=== PATIENT | female | born 1980 | race Caucasian/White ===

== ENCOUNTER 2017-10-22 15:47 | Emergency (ER) | payer SELFPAY ==
[2017-10-22] MEDS ORDERED: ALPRAZOLAM 0.5 MG TABLET PO ONE (16:35)
--- NOTE | 2017-10-22 16:36 | ER Document Report ---
ED Psych Disorder / Suicide - General Chief Complaint: Anxiety Stated Complaint: POSSIBLE ANXIETY Time Seen by Provider: 10/22/17 16:29 Mode of Arrival: Ambulatory Information source: Patient Notes: Patient is a 37-year-old female with a history of PTSD, anxiety, depression who presents to the ER today for panic attack today after running out of her Xanax and trazodone yesterday. Patient has been on these medications since she was 33 years old, but states that she just moved down here from [place] and has not found a new doctor to follow-up with about her mental health issues. Patient admits that today since she has not had her medication she has chest tightness, shortness of breath, nausea and anxiety in general. Patient denies any cardiac disease, history of asthma etc. Patient takes Xanax 1 mg 4 times a day and trazodone every night religiously and does not miss a dose. TRAVEL OUTSIDE OF THE [place] IN LAST 30 DAYS: No - Related Data Allergies/Adverse Reactions: morphine Allergy (Verified 10/22/17 15:49) Past Medical History - General Information source: Patient - Social History Smoking Status: Never Smoker Family History: Reviewed & Not Pertinent Review of Systems - Review of Systems Constitutional: No symptoms reported EENT: No symptoms reported Cardiovascular: See HPI Respiratory: See HPI Gastrointestinal: No symptoms reported Genitourinary: No symptoms reported Female Genitourinary: No symptoms reported Musculoskeletal: No symptoms reported Skin: No symptoms reported Hematologic/Lymphatic: No symptoms reported Neurological/Psychological: See HPI Physical Exam - Vital signs Vitals: Temp Pulse Resp BP Pulse Ox 98.5 F 61 20 127/66 H 100 10/22/17 17:02 10/22/17 17:02 10/22/17 17:02 10/22/17 17:02 10/22/17 17:02 - Notes Notes: PHYSICAL EXAMINATION: GENERAL: Mildly anxious appearing, but and in no acute distress. HEAD: Atraumatic, normocephalic. EYES: Pupils equal round and reactive to light, extraocular movements intact, sclera anicteric, conjunctiva are normal. ENT: ear canals without erythema or foreign body, TMs pearly garcia with good bony landmarks, nares patent, oropharynx clear without exudates. Moist mucous membranes. NECK: Normal range of motion, supple without lymphadenopathy LUNGS: CTAB and equal. No wheezes rales or rhonchi. HEART: Regular rate and rhythm without murmurs ABDOMEN: Soft, no tenderness. No guarding, no rebound BACK: no vertebral tenderness, normal ROM GI/: no CVA tenderness EXTREMITIES: Normal range of motion, no pitting edema. No cyanosis. NEUROLOGICAL: Cranial nerves grossly intact. Normal sensory/motor exams. PSYCH: Mildly anxious SKIN: Warm, Dry, normal turgor, no rashes or lesions noted Course - Re-evaluation Re-evalutation: 10/22/17 18:10 EKG reveals a normal sinus rhythm without evidence of ischemia or abnormality. Xanax relieved all of patient's symptoms. I will give her 2 weeks of medication and I did give her resources for mental health to follow-up with. - Vital Signs Vital signs: Temp Pulse Resp BP Pulse Ox 98.5 F 61 20 127/66 H 100 10/22/17 17:02 10/22/17 17:02 10/22/17 17:02 10/22/17 17:02 10/22/17 17:02 Discharge - Discharge Clinical Impression: Anxiety Condition: Stable Disposition: HOME, SELF-CARE Instructions: Anxiety ([facility]) Additional Instructions: Return immediately for any new or worsening symptoms. Follow up with primary care provider, call tomorrow to make followup appointment. Prescriptions: Trazodone HCl 50 mg PO QHS #14 tablet Alprazolam [Xanax] 1 mg PO QID PRN #56 tablet PRN Reason:
[2017-10-22 18:42] VITALS: BP 113/62
--- NOTE | 2017-10-22 21:51 | EKG REPORT ---
SEVERITY:- BORDERLINE ECG - SINUS RHYTHM SHORT ND INTERVAL, ACCELERATED AV CONDUCTION : Confirmed by: Katerina Myles 22-Oct-2017 21:50:51
== END 2017-10-22 18:42 | disposition home or self-care (01) ==
LOC: ER 15:47
DX: F41.9 Anxiety disorder, unspecified (principal); T43.216A Underdosing of selective serotonin and norepinephrine reuptake inhibitors, initial encounter; Z91.128 Patient's intentional underdosing of medication regimen for other reason; Z91.14 Patient's other noncompliance with medication regimen; R07.89 Other chest pain; R11.0 Nausea; R06.02 Shortness of breath; Z79.899 Other long term (current) drug therapy; Z88.5 Allergy status to narcotic agent
CPT/HCPCS: 93005; 93010; 99284

== ENCOUNTER 2017-11-20 10:33 | Emergency (ER) | payer MEDICAID ==
[2017-11-20] MEDS ORDERED: DEXAMETHASONE SOD PHOS INJ 10 MG/1 ML VIAL IM ONE (11:51)
[2017-11-20] MEDS ORDERED: KETOROLAC TROMETHAMINE INJ/PF 30 MG/1 ML SDV IV ONE (11:51)
[2017-11-20] MEDS ORDERED: LIDOCAINE 5% (700 MG) TRANSDERMAL ADH..PATCH TP ONE (11:52)
--- NOTE | 2017-11-20 11:59 | ER Document Report ---
ED Neck/Back Problem - General Chief Complaint: Leg Pain Stated Complaint: PAIN IN LEGS Time Seen by Provider: 11/20/17 11:10 Mode of Arrival: Ambulatory Information source: Patient Notes: 37-year-old female presents to ED for complaint of low back pain with bilateral hip pain and bilateral sciatica. She states she does have a history of scoliosis. She states the pain has been for a long time over a month but has gotten worse over the last week. She is on gabapentin from the neurologist but she is only seen him one time. TRAVEL OUTSIDE OF THE [place] IN LAST 30 DAYS: No - HPI Onset: Other - Over a month Onset: Chronic Timing: Worse Quality of pain: Sharp, Throbbing Severity: Moderate Pain Level: 4 Context: Bending Recent injury: No Associated symptoms: Like prior neck/back pain, Radiation to leg, Lower back pain. denies: Constipation, Fever, Incontinence, Motor loss, Numbness/tingling , Radiation to arm, Radiation to chest, Sensory loss, Sweaty, Unable to urinate , Upper back pain Exacerbated by: Movement of trunk Relieved by: Nothing Similar symptoms previously: Yes Recently seen / treated by doctor: Yes - Related Data Allergies/Adverse Reactions: morphine Allergy (Verified 10/22/17 15:49) Past Medical History - General Information source: Patient - Social History Smoking Status: Current Every Day Smoker Cigarette use (# per day): Yes - Half pack per day Chew tobacco use (# tins/day): No Smoking Education Provided: Yes - 4 minutes Frequency of alcohol use: None Drug Abuse: None Occupation: Student Lives with: Family Family History: Reviewed & Not Pertinent Patient has suicidal ideation: No Patient has homicidal ideation: No - Past Medical History Cardiac Medical History: Reports: None Pulmonary Medical History: Reports: None EENT Medical History: Reports: None Neurological Medical History: Reports: None Endocrine Medical History: Reports: None Renal/ Medical History: Reports: Other - Endometriosis Malignancy Medical History: Reports: None GI Medical History: Reports: None Musculoskeltal Medical History: Reports Hx Arthritis Skin Medical History: Reports None, Reports Other - Cat scratch fever with lymph node removal Psychiatric Medical History: Reports: Hx Anxiety, Hx Depression, Hx Post Traumatic Stress Disorder Past Surgical History: Reports: Hx Appendectomy, Hx Gynecologic Surgery - Uterine ablation, Hx Tubal Ligation, Other - Lymph node removed due to CAT scans fever Review of Systems - Review of Systems Constitutional: No symptoms reported EENT: No symptoms reported Cardiovascular: No symptoms reported Respiratory: No symptoms reported Gastrointestinal: No symptoms reported Genitourinary: No symptoms reported Female Genitourinary: No symptoms reported Musculoskeletal: Back pain - With bilateral sciatica Skin: No symptoms reported Hematologic/Lymphatic: No symptoms reported Neurological/Psychological: No symptoms reported -: Yes All other systems reviewed and negative Physical Exam - Vital signs Vitals: Temp Pulse Resp BP Pulse Ox 98.0 F 87 14 113/67 99 11/20/17 10:38 11/20/17 10:38 11/20/17 10:38 11/20/17 10:38 11/20/17 10:38 Interpretation: Normal - General General appearance: Appears well, Alert - HEENT Head: Normocephalic, Atraumatic Eyes: Normal Pupils: PERRL - Respiratory Respiratory status: No respiratory distress Chest status: Nontender Breath sounds: Normal Chest palpation: Normal - Cardiovascular Rhythm: Regular Heart sounds: Normal auscultation Murmur: No - Abdominal Inspection: Normal Distension: No distension Bowel sounds: Normal Tenderness: Nontender Organomegaly: No organomegaly - Back Back: Normal, Tender - Lumbar spine bilateral SI joint, Vertebra tenderness - Lumbar. No: Deformity/step-off, CVA tenderness, Scars, Wounds - Extremities General upper extremity: Normal inspection, Nontender, Normal color, Normal ROM , Normal temperature General lower extremity: Normal inspection, Nontender, Normal color, Normal ROM , Normal temperature, Normal weight bearing. No: Remberto's sign - Neurological Neuro grossly intact: Yes Cognition: Normal Orientation: AAOx4 [place] Coma Scale Eye Opening: Spontaneous [place] Coma Scale Verbal: Oriented [place] Coma Scale Motor: Obeys Commands [place] Coma Scale Total: 15 Speech: Normal Motor strength normal: LUE, RUE, LLE, RLE Sensory: Normal - Psychological Associated symptoms: Normal affect, Normal mood - Skin Skin Temperature: Warm Skin Moisture: Dry Skin Color: Normal Course - Re-evaluation Re-evalutation: 11/20/17 13:22 After performing a Medical Screening Examination, I estimate there is LOW risk for EXPANDING OR RUPTURED ABDOMINAL AORTIC ANEURYSM, CAUDA EQUINA SYNDROME, EPIDURAL MASS LESION, or HERNIATED DISK CAUSING SEVERE SPINAL STENOSIS, thus I consider the discharge disposition reasonable. I have reevaluated this patient multiple times and no significant life threatening changes are noted. The patient and I have discussed the diagnosis and risks, and we agree with discharging home and close follow-up. We also discussed returning to the Emergency Department immediately if new or worsening symptoms occur with the understanding that symptoms and presentations can change. We have discussed the symptoms which are most concerning (e.g., saddle anesthesia, urinary or bowel incontinence or retention, changing or worsening pain) that necessitate immediate return. - Vital Signs Vital signs: Temp Pulse Resp BP Pulse Ox 98.2 F 78 16 111/62 100 11/20/17 13:25 11/20/17 13:25 11/20/17 13:25 11/20/17 13:25 11/20/17 13:25 - Laboratory Result Diagrams: 11/20/17 12:30 Laboratory results interpreted by me: 11/20/17 11/20/17 12:30 12:30 Creatinine 0.50 L Urine Ketones TRACE H - Diagnostic Test Radiology reviewed: Image reviewed, Reports reviewed Discharge - Discharge Clinical Impression: Low back pain with sciatica Qualifiers: Chronicity: acute Back pain laterality: bilateral Sciatica laterality: bilateral sciatica Qualified Code(s): M54.42 - Lumbago with sciatica, left side Headache Qualifiers: Headache type: unspecified Headache chronicity pattern: unspecified pattern Intractability: not intractable Qualified Code(s): R51 - Headache Condition: Stable Disposition: HOME, SELF-CARE Instructions: Family Physicians / Practices Additional Instructions: LOW BACK PAIN: Three out of every four people will have an episode of disabling back pain during their lifetime. Most commonly the pain is due to straining of the muscles and ligaments in the low back. Usual treatment includes: (1) Rest on a firm surface. Avoid lying on your stomach. (2) Ice pack the painful area. After a few days, gentle heat may be used intermittently to relax the area, or ice packs can be continued. (3) Medication may be needed -- muscle relaxers and antiinflammatory medicines are commonly used. (4) As the back improves, exercises are prescribed to strengthen the back and abdominal muscles. Your doctor will advise you on the proper care for your back at each stage in your recovery. You may be better in a few days -- or healing may take several weeks. If new symptoms of a "herniated disc" (radiation of pain, numbness, or tingling down the back of the leg or weakness in the leg) occur, you should be re-examined. Further testing may be necessary. ORAL NARCOTIC MEDICATION: You have been given a norco for pain control. This medication is a narcotic. It's best taken with food, as nausea can result if taken on an empty stomach. Don't operate machinery or drive within six hours of taking this medication. Do not combine this medicine with alcohol, or with any medication which can cause sedation (such as cold tablets or sleeping pills) unless you get permission from the physician. Narcotics tend to cause constipation. If possible, drink plenty of fluids and eat a diet high in fiber and fruits. Please be aware that prescription narcotics also have the potential for abuse. People become addicted to these medications because of the general sense of wellbeing that they induce. This feeling along with a significant reduction in tension, anxiety, and aggression provides a stimulating seductive quality to these drugs. Once your pain is under control, we encourage you to discard your unused narcotics. MUSCLE RELAXERS: Muscle relaxing medications are usually prescribed for acute muscle spasm or injury to the neck and back. They are often combined with antiinflammatory pain medication for increased relief. You may stop the muscle relaxer when the pain and stiffness have improved. Start the medication again if spasms recur. Muscle relaxers may cause drowsiness, especially with the first dose. Do not operate machinery or drive while under the effects of the medication. Most muscle relaxers last up to 24 hours. Do not combine the medication with alcohol. ICE PACKS: Apply ice packs frequently against the painful area. Many different schedules are recommended, such as "20 minutes on, 20 minutes off" or "one hour ice, two hours rest." If you need to work, you may need to go longer between ice treatments. You should plan to have the area ice packed AT LEAST one fourth of the time. The ice should be applied over the wrap, tape, or splint, or over a layer of cloth -- not directly against the skin. Some ice bags have a built-in cloth and can be put directly on the skin. WARM PACKS: After approximately two days, apply gentle heat (such as a heating pad or hot water bottle) for about 20 to 30 minutes about every two hours -- at least four times daily. Warmth and elevation will help you make a more rapid recovery , and will ease the pain considerably. Do not use HOT heat, and never apply heat for longer than 30 minutes. The continuous heat can invisibly damage skin and muscles -- even when no burn is seen on the surface. Damaged muscles can make you MORE sore. Toradol Injection You have been given an injection of ketorolac tromethamine (Toradol). This is an excellent, safe drug for pain control. It also has potent antiinflammatory action. You should have significant pain relief within about one hour. Toradol is not addicting and is non-sedating. It does not interfere with driving or work. Call or return if you develop itching, hives, shortness of breath, or rash. STEROID MEDICATION: You have been given an injection of medicine of the cortisone/steroid class. This medication is used to control inflammation or allergy. It is often continued as a pill for a short period of time, until the acute process subsides. There are usually no side effects from short-term use of cortisone-like medications. Some persons feel an increased sense of well-being and are not sleepy at bedtime. Long-term use of cortisone medications is best avoided, unless required for a severe condition. If your condition does not remit, or relapses after the course of corticosteroid medication, you should consult your physician. Stretching Exercises for the Back The physician has recommended that you begin stretching exercises for your back. These are often used even while the back is painful. However, you should notify the physician if the activities seem to increase your pain. PELVIC TILT: Lie flat on your back with knees bent. Tighten your stomach and buttock muscles so it flattens your lower back against the floor. Hold 10 seconds. Repeat 10 times, twice daily. KNEE RAISE: Lying on the back with knees bent, raise one knee to your chest, then the other. Hold both knees against the chest 10 seconds, then lower one knee at a time. Repeat 10 times, twice daily. PARTIAL TRUNK RAISE: Lie face down, arms at your sides. Keeping your waist on the floor, use your arms raise your chest up. Support yourself on your elbows for 30 seconds. Repeat twice daily, increasing the time to two minutes as you recover. Placed a Lidoderm patch on you at this time. And needs to come off in 12 hours. I can write you a prescription for the lidocaine patches but sometimes insurances do not cover them if they do not cover them they do have him over-the -counter. FOLLOW-UP CARE: If you have been referred to a physician for follow-up care, call the physician s office for an appointment as you were instructed or within the next two days. If you experience worsening or a significant change in your symptoms, notify the physician immediately or return to the Emergency Department at any time for re-evaluation. Prescriptions: Cyclobenzaprine HCl [Flexeril 10 mg Tablet] 10 mg PO TIDP PRN #15 tab PRN Reason: Lidocaine [Lidoderm 5% (700 mg) Transdermal Patch] 1 patch TP DAILY #30 adh..patch Forms: Smoking Cessation Education
--- NOTE | 2017-11-20 12:29 | RADIOLOGY REPORT (SQ) ---
EXAM DESCRIPTION: L SPINE WHOLE COMPLETED DATE/TIME: 11/20/2017 12:13 pm REASON FOR STUDY: low back pain sciatica has had BTL COMPARISON: None. NUMBER OF VIEWS: Five views including obliques. TECHNIQUE: AP, lateral, oblique, and sacral radiographic images acquired of the lumbar spine. LIMITATIONS: None. FINDINGS: MINERALIZATION: Normal. SEGMENTATION: Normal. No transitional anatomy. ALIGNMENT: Normal. VERTEBRAE: Maintained height. No fracture or worrisome bone lesion. DISCS: Preserved height. No significant osteophytes or end plate irregularity. POSTERIOR ELEMENTS: Pedicles and facets are intact. No pars defect or posterior arch defects. HARDWARE: None in the spine. PARASPINAL SOFT TISSUES: Normal. PELVIS: Intact as visualized. No fractures or worrisome bone lesions. SI joints intact. OTHER: No other significant finding. IMPRESSION: NORMAL 5 VIEW LUMBAR SPINE. TECHNICAL DOCUMENTATION: JOB ID: [id number] [employer]- All Rights Reserved Reading location - IP/workstation name: [email or web address]
[2017-11-20 13:01] LABS: APPEARANCE,URINE CLEAR; BILIRUBIN,URINE NEGATIVE (NEGATIVE); COLOR,URINE COLORLESS; GLUCOSE, URINE NEGATIVE (NEGATIVE); KETONES,URINE TRACE mg/dL (NEGATIVE); LEUKOCYTE ESTERASE,URINE NEGATIVE (NEGATIVE); NITRITE,URINE NEGATIVE (NEGATIVE); PROTEIN,URINE NEGATIVE (NEGATIVE); URINE SPECIFIC GRAVITY 1.004; UROBILINOGEN,URINE NEGATIVE mg/dL (<2.0)
[2017-11-20 13:03] LABS: ANION GAP 13 (5-19); BLOOD UREA NITROGEN 11 mg/dL (7-20); CALCIUM 10.2 mg/dL (8.4-10.2); CARBON DIOXIDE 25 mmol/L (22-30); CHLORIDE 106 mmol/L (98-107); GLUCOSE 84 mg/dL (75-110); POTASSIUM 4.5 mmol/L (3.6-5.0)
[2017-11-20] MEDS ORDERED: CYCLOBENZAPRINE HCL 10 MG TABLET PO ONE (13:13)
[2017-11-20] MEDS ORDERED: HYDROCODONE/ACETAMINOPHEN 5-325 MG TABLET PO ONE (13:13)
[2017-11-20 14:07] VITALS: BP 111/62
== END 2017-11-20 13:25 | disposition home or self-care (01) ==
LOC: ER 10:33
DX: M54.42 Lumbago with sciatica, left side (principal); M54.41 Lumbago with sciatica, right side; R51 Headache; F17.210 Nicotine dependence, cigarettes, uncomplicated; Z71.6 Tobacco abuse counseling; Z79.899 Other long term (current) drug therapy; Z88.5 Allergy status to narcotic agent
CPT/HCPCS: 99406; 99284; 96372; 96374; 36415; 80048; 81001; 72110; J1885; J1100

== ENCOUNTER 2018-01-13 21:36 | Emergency (ER) | payer MEDICAID ==
[2018-01-13 23:25] LABS: APPEARANCE,URINE CLEAR; BILIRUBIN,URINE NEGATIVE (NEGATIVE); COLOR,URINE STRAW; GLUCOSE, URINE NEGATIVE (NEGATIVE); KETONES,URINE TRACE mg/dL (NEGATIVE); LEUKOCYTE ESTERASE,URINE NEGATIVE (NEGATIVE); NITRITE,URINE NEGATIVE (NEGATIVE); PROTEIN,URINE NEGATIVE (NEGATIVE); URINE SPECIFIC GRAVITY 1.008; UROBILINOGEN,URINE NEGATIVE mg/dL (<2.0)
[2018-01-13 23:41] LABS: ABSOLUTE EOSINOPHILS # (AUTO) 0.2 10^3/uL (0.0-0.6); ABSOLUTE LYMPHOCYTES (AUTO) 3.2 10^3/uL (0.5-4.7); ABSOLUTE MONOCYTES (AUTO) 0.6 10^3/uL (0.1-1.4); ABSOLUTE NEUT (AUTO) 4.9 10^3/uL (1.7-8.2); BASOPHILS % (AUTO) 0.4 % (0-2); EOSINOPHILS % (AUTO) 1.9 % (0-6); HEMATOCRIT 38.7 % (36.0-47.0); HEMOGLOBIN 13.1 g/dL (12.0-15.5); LYMPHOCYTES % (AUTO) 35.7 % (13-45); MEAN CORPUSCULAR HEMOGLOBIN 31.4 pg (27.0-33.4); MEAN CORPUSCULAR HGB CONC 33.9 g/dL (32.0-36.0); MEAN CORPUSCULAR VOLUME 93 fl (80-97); PLATELET COUNT 288 10^3/uL (150-450); RED BLOOD COUNT 4.19 10^6/uL (3.72-5.28); RED CELL DISTRIBUTION WIDTH 13.2 % (11.5-14.0); TOTAL CELLS COUNTED % (AUTO) 100 %; WHITE BLOOD COUNT 8.9 10^3/uL (4.0-10.5)
[2018-01-13 23:51] LABS: ALANINE AMINOTRANSFERASE 21 U/L (9-52); ALBUMIN 4.2 g/dL (3.5-5.0); ALKALINE PHOSPHATASE 50 U/L (38-126); ANION GAP 11 (5-19); ASPARTATE AMINO TRANSFERASE 16 U/L (14-36); BILIRUBIN,DIRECT 0.2 mg/dL (0.0-0.4); BILIRUBIN,TOTAL 0.4 mg/dL (0.2-1.3); BLOOD UREA NITROGEN 16 mg/dL (7-20); CALCIUM 9.8 mg/dL (8.4-10.2); CARBON DIOXIDE 25 mmol/L (22-30); CHLORIDE 106 mmol/L (98-107); GLUCOSE 87 mg/dL (75-110); POTASSIUM 3.9 mmol/L (3.6-5.0); SODIUM 142.1 mmol/L (137-145); TOTAL PROTEIN 6.6 g/dL (6.3-8.2)
[2018-01-14] MEDS ORDERED: KETOROLAC TROMETHAMINE INJ/PF 30 MG/1 ML SDV IV ONE (00:41)
[2018-01-14] MEDS ORDERED: FENTANYL CITRATE INJ/PF 100 MCG/2 ML AMPUL IV ONE ×2 (00:41→02:18)
--- NOTE | 2018-01-14 00:43 | ER Document Report ---
ED General - General Chief Complaint: Abdominal Pain Stated Complaint: ABDOMINAL PAIN Time Seen by Provider: 01/13/18 23:30 Notes: Patient is a 37-year-old female with a past medical history of depression, anxiety, PTSD, a prior surgical history of a tubal ligation who presents with acute onset of left adnexal discomfort approximately 1 hour prior to arrival. She describes this as a stabbing, constant, severe pain. Nothing improves or worsens this pain. She denies a history of similar pain in the past. She has not seen her general doctor regarding today's concerns. She denies any associated vomiting, diarrhea, vaginal bleeding, vaginal discharge or dysuria. No trauma to the area. The pain has been unchanged since onset. TRAVEL OUTSIDE OF THE [place] IN LAST 30 DAYS: No - Related Data Allergies/Adverse Reactions: morphine Allergy (Verified 10/22/17 15:49) Past Medical History - General Information source: Patient - Social History Smoking Status: Current Every Day Smoker Chew tobacco use (# tins/day): No Frequency of alcohol use: Rare Drug Abuse: None Lives with: Spouse/Significant other Family History: Reviewed & Not Pertinent Patient has suicidal ideation: No Patient has homicidal ideation: No Renal/ Medical History: Denies: Hx Peritoneal Dialysis Musculoskeltal Medical History: Reports Hx Arthritis Psychiatric Medical History: Reports: Hx Anxiety, Hx Depression, Hx Post Traumatic Stress Disorder Past Surgical History: Reports: Hx Appendectomy, Hx Gynecologic Surgery - Uterine ablation, Hx Tubal Ligation, Other - Lymph node removed due to CAT scans fever Review of Systems - Review of Systems Notes: Constitutional: Negative for fever. HENT: Negative for sore throat. Eyes: Negative for visual changes. Cardiovascular: Negative for chest pain. Respiratory: Negative for shortness of breath. Gastrointestinal: Positive for abdominal pain Genitourinary: Negative for dysuria. Musculoskeletal: Negative for back pain. Skin: Negative for rash. Neurological: Negative for headaches, weakness or numbness. 10 point ROS negative except as marked above and in HPI. Physical Exam - Vital signs Vitals: Temp Pulse Resp BP Pulse Ox 97.8 F 58 L 15 99/66 L 99 01/13/18 22:28 01/13/18 22:28 01/13/18 22:28 01/13/18 22:28 01/13/18 22:28 Interpretation: Normal Notes: PHYSICAL EXAMINATION: GENERAL: Well-appearing, well-nourished and in no acute distress. HEAD: Atraumatic, normocephalic. EYES: Pupils equal round and reactive to light, extraocular movements intact, sclera anicteric, conjunctiva are normal. ENT: nares patent, oropharynx clear without exudates. Moist mucous membranes. NECK: Normal range of motion, supple without lymphadenopathy LUNGS: Breath sounds clear to auscultation bilaterally and equal. No wheezes rales or rhonchi. HEART: Regular rate and rhythm without murmurs ABDOMEN: Soft, mild tenderness to the suprapubic and left adnexal regions but no other localized areas of tenderness, normoactive bowel sounds. No guarding, no rebound. No masses appreciated. EXTREMITIES: Normal range of motion, no pitting or edema. No cyanosis. NEUROLOGICAL: No focal neurological deficits. Moves all extremities spontaneously and on command. PSYCH: Moderately anxious SKIN: Warm, Dry, normal turgor, no rashes or lesions noted. Course - Re-evaluation Re-evalutation: 01/14/18 00:41 Patient presents with acute onset of suprapubic abdominal pain that started approximately 3 hours prior to arrival and has been ongoing since that time. Abdominal exam is otherwise benign without any focal areas of tenderness, rebound or guarding. Patient is otherwise nontoxic in appearance, vitals within normal limits with bradycardia at time of arrival as opposed to tachycardia. No hypotension. No fever. She has not had any associated nausea or vomiting. She has a history of an appendectomy as well as a tubal ligation. Clinical suspicion is highest for possible ruptured ovarian cyst versus endometriosis both of which the patient has a history of. Will obtain a transvaginal ultrasound to further assess. The patient has no upper abdominal tenderness to suggest a biliary pathology, acute pancreatitis and the labs are otherwise unremarkable. Urinalysis clear without evidence of cystitis or pyelonephritis. 01/14/18 02:45 Transvaginal ultrasound does show a hemorrhagic left ovarian cyst which would account for the patient's pain. She is overall feeling much improved at this time point has tolerated oral intake without difficulty. At this time will discharge with return precautions and follow-up recommendations. Verbal discharge instructions given a the bedside and opportunity for questions given. Medication warnings reviewed. Patient is in agreement with this plan and has verbalized understanding of return precautions and the need for primary care follow-up in the next 24-72 hours. - Vital Signs Vital signs: Temp Pulse Resp BP Pulse Ox 98.2 F 50 L 15 92/50 L 99 01/14/18 03:07 01/14/18 03:07 01/14/18 03:07 01/14/18 03:07 01/14/18 03:07 - Laboratory Result Diagrams: 01/13/18 23:25 01/13/18 23:25 Laboratory results interpreted by me: 01/13/18 23:00 Urine Ketones TRACE H - Diagnostic Test Radiology reviewed: Reports reviewed Discharge - Discharge Clinical Impression: Hemorrhagic cyst of left ovary, Lower abdominal pain Condition: Good Disposition: HOME, SELF-CARE Additional Instructions: Your seen today for lower abdominal pain and your ultrasound shows that you have a hemorrhagic left ovarian cyst which likely accounts for your pain. For your pain: Take ibuprofen 600 mg and acetaminophen 1000 mg every 6 hours together as needed for pain. If this does not control your pain you may take the tramadol as prescribed. Please follow-up with your primary doctor regarding today's visit. Return if you develop a fever greater than 100.4F, worsening pain, persistent vomiting, or any other symptoms that are worrisome to you. Prescriptions: Tramadol HCl 50 mg PO Q6H PRN #8 tablet PRN Reason: Severe Pain
--- NOTE | 2018-01-14 02:35 | RADIOLOGY REPORT (SQ) ---
EXAM DESCRIPTION: US PELVIS COMPLETED DATE/TME: 01/14/2018 00:40 CLINICAL HISTORY: 37 years, Female, lower abdominal pain, adnexal pain LMP not available. COMPARISON: None. TECHNIQUE: Complete pelvic ultrasound with transvaginal imaging. Limited color spectral Doppler imaging of the ovaries. FINDINGS: Uterus measures 8.3 x 3.8 x 4.7 cm. Endometrial thickness of 0.2 cm. Cervical length of 2.9 cm and closed. Nabothian cysts. No free pelvic fluid. The right ovary measures 3.7 x 1.7 x 2.4 cm. The left ovary measures 4.4 x 2.1 x 3.1 cm. There is a 2.7 x 1.5 x 2.0 cm hemorrhagic left ovarian cyst. No follow-up imaging required. Limited color spectral Doppler imaging of the ovaries demonstrates blood flow bilaterally. IMPRESSION: 1. No sonographic abnormality identified in the pelvis. 2011 [employer]- All Rights Reserved
[2018-01-14 03:11] VITALS: BP 92/50
== END 2018-01-14 03:11 | disposition home or self-care (01) ==
LOC: ER 21:36
DX: N83.202 Unspecified ovarian cyst, left side (principal); R10.30 Lower abdominal pain, unspecified; R00.1 Bradycardia, unspecified; F17.200 Nicotine dependence, unspecified, uncomplicated
CPT/HCPCS: 96376; 99284; 96374; 96375; 36415; 83690; 84703; 85025; 80053; 81001; 76830; 93976; J3010; J1885

== ENCOUNTER → 2018-01-30 | Outpatient (CLI) | payer MEDICAID ==
[2018-01-30 16:19] LABS: FREE T4 (FREE THYROXINE) 1.07 ng/dL (0.78-2.19)
[2018-01-30 16:33] LABS: THYROID STIMULATING HORMONE 1.15 uIU/mL (0.47-4.68)
== END ==
LOC: OD 14:51
PROVIDERS: ATTEND Nurse Practitioner Psychiatric/Mental Health
DX: F40.01 Agoraphobia with panic disorder (principal); Z79.899 Other long term (current) drug therapy
CPT/HCPCS: 36415; 84439; 84443

== ENCOUNTER 2018-02-02 18:15 | Emergency (ER) | payer MEDICAID ==
[2018-02-02] MEDS ORDERED: ONDANSETRON 4 MG TAB.RAPDIS PO ONE (19:13)
[2018-02-02] MEDS ORDERED: OXYCODONE-ACETAMINOPHEN 5-325 MG TABLET PO ONE (19:13)
--- NOTE | 2018-02-02 19:16 | ER Document Report ---
ED Medical Screen (RME) - General Chief Complaint: Abdominal Pain Stated Complaint: ABDOMINAL PAIN Time Seen by Provider: 02/02/18 19:08 Notes: 37-year-old female patient complaining of severe pain in the left lower quadrant abdomen. She was seen here on 01/13/2018 and found to have a small left ovarian hemorrhagic cyst. She states this pain is similar but possibly worse. It had been getting better since her visit about 3 weeks ago. It began getting bad today about 2 PM and has been getting progressively worse all day. I have greeted and performed a rapid initial assessment of this patient. A comprehensive ED assessment and evaluation of the patient, analysis of test results and completion of the medical decision making process will be conducted by additional ED providers. TRAVEL OUTSIDE OF THE [place] IN LAST 30 DAYS: No - Related Data Allergies/Adverse Reactions: morphine Allergy (Verified 02/02/18 18:16) Past Medical History - Social History Chew tobacco use (# tins/day): No Frequency of alcohol use: None Drug Abuse: None Renal/ Medical History: Denies: Hx Peritoneal Dialysis Musculoskeltal Medical History: Reports Hx Arthritis Psychiatric Medical History: Reports: Hx Anxiety, Hx Depression, Hx Post Traumatic Stress Disorder Past Surgical History: Reports: Hx Appendectomy, Hx Gynecologic Surgery - Uterine ablation, Hx Tubal Ligation, Other - Lymph node removed due to CAT scans fever Physical Exam - Vital signs Vitals: Temp Pulse Resp BP Pulse Ox 98.5 F 90 16 110/75 99 02/02/18 18:31 02/02/18 18:31 02/02/18 18:31 02/02/18 18:31 02/02/18 18:31 Course - Vital Signs Vital signs: Temp Pulse Resp BP Pulse Ox 98.5 F 90 16 110/75 99 02/02/18 18:31 02/02/18 18:31 02/02/18 18:31 02/02/18 18:31 02/02/18 18:31 Doctor's Discharge - Discharge Referrals: ADRIANA FENG NP [Primary Care Provider] - Follow up as needed
[2018-02-02 19:37] LABS: APPEARANCE,URINE CLEAR; BILIRUBIN,URINE NEGATIVE (NEGATIVE); COLOR,URINE STRAW; GLUCOSE, URINE NEGATIVE (NEGATIVE); KETONES,URINE NEGATIVE (NEGATIVE); LEUKOCYTE ESTERASE,URINE NEGATIVE (NEGATIVE); NITRITE,URINE NEGATIVE (NEGATIVE); PROTEIN,URINE NEGATIVE (NEGATIVE); URINE SPECIFIC GRAVITY 1.005; UROBILINOGEN,URINE NEGATIVE mg/dL (<2.0)
[2018-02-02 19:38] LABS: ABSOLUTE BASOPHILS # (AUTO) 0.1 10^3/uL (0.0-0.2); ABSOLUTE EOSINOPHILS # (AUTO) 0.2 10^3/uL (0.0-0.6); ABSOLUTE LYMPHOCYTES (AUTO) 2.4 10^3/uL (0.5-4.7); ABSOLUTE MONOCYTES (AUTO) 0.6 10^3/uL (0.1-1.4); ABSOLUTE NEUT (AUTO) 7.7 10^3/uL (1.7-8.2); BASOPHILS % (AUTO) 0.6 % (0-2); EOSINOPHILS % (AUTO) 1.5 % (0-6); HEMATOCRIT 41.2 % (36.0-47.0); HEMOGLOBIN 13.8 g/dL (12.0-15.5); LYMPHOCYTES % (AUTO) 22.1 % (13-45); MEAN CORPUSCULAR HEMOGLOBIN 31.3 pg (27.0-33.4); MEAN CORPUSCULAR HGB CONC 33.6 g/dL (32.0-36.0); MEAN CORPUSCULAR VOLUME 93 fl (80-97); MONOCYTES % (AUTO) 5.8 % (3-13); PLATELET COUNT 338 10^3/uL (150-450); RED BLOOD COUNT 4.42 10^6/uL (3.72-5.28); TOTAL CELLS COUNTED % (AUTO) 100 %; WHITE BLOOD COUNT 11.1 10^3/uL (4.0-10.5)
[2018-02-02] MEDS ORDERED: KETOROLAC TROMETHAMINE INJ/PF 30 MG/1 ML SDV IV ONE (20:23)
[2018-02-02] MEDS ORDERED: NORMAL SALINE 1000 ML 1,000 ML IV ONE (20:23)
[2018-02-02] MEDS ORDERED: METOCLOPRAMIDE HCL INJ/PF 10 MG/2 ML SDV IV ONE (22:02)
[2018-02-02] MEDS ORDERED: FENTANYL CITRATE INJ/PF 100 MCG/2 ML AMPUL IV ONE (22:03)
--- NOTE | 2018-02-02 23:32 | RADIOLOGY REPORT (SQ) ---
EXAM DESCRIPTION: US PELVIS COMPLETED DATE/TME: 02/02/2018 20:07 CLINICAL HISTORY: 37 years Female, hx of left cyst increase pain Comparison: 2.17.18 Technique: Transvaginal. LIMITATIONS: None. FINDINGS: 8-cm uterus, 0.5-cm endometrial stripe thickness, 2.4-cm cervical length, nabothian cysts, 3.2-cm right ovary, and 4.0-cm left ovary appear normal in size, shape, echotexture, and vascularity. Interval absence of a previously described 2.7 cm left ovarian cyst. No free fluid. IMPRESSION: Normal pelvic sonogram..
--- NOTE | 2018-02-02 23:43 | ER Document Report ---
ED General - General Chief Complaint: Abdominal Pain Stated Complaint: ABDOMINAL PAIN Time Seen by Provider: 02/02/18 19:08 TRAVEL OUTSIDE OF THE [place] IN LAST 30 DAYS: No - HPI Patient complains to provider of: Left lower quadrant abdominal pain Notes: Patient coming in for left lower quadrant abdominal pain. Patient states pain similar to when she was seen 3 weeks ago at that time was diagnosed left ovarian cyst. Patient states pain the day achy initially then became acutely worse. Patient denies any flank pain. Denies any dysuria. Denies any fevers chills vomiting or diarrhea. Patient states slight nausea. Patient denies any trauma denies any recent antibiotics. - Related Data Allergies/Adverse Reactions: morphine Allergy (Verified 02/02/18 18:16) Past Medical History - Social History Smoking Status: Current Every Day Smoker Chew tobacco use (# tins/day): No Frequency of alcohol use: None Drug Abuse: None Family History: Reviewed & Not Pertinent Patient has suicidal ideation: No Patient has homicidal ideation: No Renal/ Medical History: Denies: Hx Peritoneal Dialysis Musculoskeltal Medical History: Reports Hx Arthritis Psychiatric Medical History: Reports: Hx Anxiety, Hx Depression, Hx Post Traumatic Stress Disorder Past Surgical History: Reports: Hx Appendectomy, Hx Gynecologic Surgery - Uterine ablation, Hx Tubal Ligation, Other - Lymph node removed due to CAT scans fever Review of Systems - Review of Systems Constitutional: No symptoms reported EENT: No symptoms reported Cardiovascular: No symptoms reported Respiratory: No symptoms reported Gastrointestinal: Abdominal pain - Left lower quadrant Genitourinary: No symptoms reported Female Genitourinary: No symptoms reported Musculoskeletal: No symptoms reported Skin: No symptoms reported Hematologic/Lymphatic: No symptoms reported Neurological/Psychological: No symptoms reported -: Yes All other systems reviewed and negative Physical Exam - Vital signs Vitals: Temp Pulse Resp BP Pulse Ox 98.5 F 90 16 110/75 99 02/02/18 18:31 02/02/18 18:31 02/02/18 18:31 02/02/18 18:31 02/02/18 18:31 Interpretation: Normal - General General appearance: Appears well, Alert - HEENT Head: Normocephalic, Atraumatic Eyes: Normal Pupils: PERRL - Respiratory Respiratory status: No respiratory distress Chest status: Nontender Breath sounds: Normal Chest palpation: Normal - Cardiovascular Rhythm: Regular Heart sounds: Normal auscultation Murmur: No - Abdominal Inspection: Normal Distension: No distension Bowel sounds: Normal Tenderness: Tender - Mild tenderness left lower quadrant Organomegaly: No organomegaly - Back Back: Normal, Nontender - Extremities General upper extremity: Normal inspection, Nontender, Normal color, Normal ROM , Normal temperature General lower extremity: Normal inspection, Nontender, Normal color, Normal ROM , Normal temperature, Normal weight bearing. No: Remberto's sign - Neurological Neuro grossly intact: Yes Cognition: Normal Orientation: AAOx4 [place] Coma Scale Eye Opening: Spontaneous [place] Coma Scale Verbal: Oriented Louis Coma Scale Motor: Obeys Commands [place] Coma Scale Total: 15 Speech: Normal Motor strength normal: LUE, RUE, LLE, RLE Sensory: Normal - Psychological Associated symptoms: Normal affect, Normal mood - Skin Skin Temperature: Warm Skin Moisture: Dry Skin Color: Normal Course - Re-evaluation Re-evalutation: 02/03/18 01:56 Ultrasound was performed showing no left ovarian cyst at this time. Possible etiology of the patient's pain will be rupture of this ovarian cyst. Otherwise patient's laboratory studies reveal no critical pathology. Patient will be given pain medication as medication encouraged follow-up with her CREDIT REPRESENTATIVE patient will be discharged home at this time. - Vital Signs Vital signs: Temp Pulse Resp BP Pulse Ox 98.5 F 50 L 16 95/53 L 100 02/02/18 18:31 02/03/18 00:31 02/03/18 00:31 02/03/18 00:31 02/03/18 00:31 - Laboratory Result Diagrams: 02/02/18 19:17 Laboratory results interpreted by me: 02/02/18 02/02/18 18:35 19:17 WBC 11.1 H Urine Blood SMALL H Discharge - Discharge Clinical Impression: Abdominal pain Qualifiers: Abdominal location: left lower quadrant Qualified Code(s): R10.32 - Left lower quadrant pain Condition: Good Disposition: HOME, SELF-CARE Instructions: Abdominal Pain ([facility]) Additional Instructions: Laboratory studies not did not show any signs of infection. Your ultrasound does not show any signs of ovarian torsion and the recently described cyst is now not seen. More likely had a rupture of this ovarian cyst earlier today. Pain may continue for the next 24-48 hours. I would highly recommend taking Tylenol Motrin for your pain control take prescribed Ultram for severe pain. Return to ER for any other symptoms. Also recommend taking the Zofran for any nausea that she may have to follow-up with your CREDIT REPRESENTATIVE or primary care physician as needed. Prescriptions: Ondansetron [Zofran Odt] 4 mg PO Q6 PRN #20 tab.rapdis PRN Reason: For Nausea/Vomiting Tramadol HCl [Ultram 50 mg Tablet] 50 mg PO ASDIR PRN #10 tablet PRN Reason: Forms: Return to Work Referrals: ADRIANA FENG NP [NO LOCAL MD] - Follow up as needed
[2018-02-03] MEDS ORDERED: TRAMADOL HCL 50 MG TABLET PO ONE (00:14)
[2018-02-03 00:32] VITALS: BP 95/53
== END 2018-02-03 00:34 | disposition home or self-care (01) ==
LOC: ER 18:15
DX: R10.32 Left lower quadrant pain (principal); R11.0 Nausea; F17.200 Nicotine dependence, unspecified, uncomplicated
CPT/HCPCS: 99284; 36415; 84703; 85025; 81001; 76830; 93976; S0119; J3010; J1885; J2765; J7030

== ENCOUNTER 2018-02-08 15:52 | Emergency (ER) | payer MEDICAID ==
[2018-02-08] MEDS ORDERED: DIPHENHYDRAMINE HCL 50 MG/ML VIAL IV ONE (16:28)
[2018-02-08] MEDS ORDERED: NORMAL SALINE 1000 ML 1,000 ML IV ONE (16:28)
[2018-02-08] MEDS ORDERED: METOCLOPRAMIDE HCL INJ/PF 10 MG/2 ML SDV IV ONE (16:28)
[2018-02-08 16:38] LABS: ABSOLUTE EOSINOPHILS # (AUTO) 0.1 10^3/uL (0.0-0.6); ABSOLUTE LYMPHOCYTES (AUTO) 2.4 10^3/uL (0.5-4.7); ABSOLUTE MONOCYTES (AUTO) 0.6 10^3/uL (0.1-1.4); ABSOLUTE NEUT (AUTO) 6.8 10^3/uL (1.7-8.2); BASOPHILS % (AUTO) 0.4 % (0-2); EOSINOPHILS % (AUTO) 1.3 % (0-6); HEMATOCRIT 39.5 % (36.0-47.0); HEMOGLOBIN 13.4 g/dL (12.0-15.5); LYMPHOCYTES % (AUTO) 24.1 % (13-45); MEAN CORPUSCULAR HEMOGLOBIN 31.6 pg (27.0-33.4); MEAN CORPUSCULAR VOLUME 93 fl (80-97); MONOCYTES % (AUTO) 5.9 % (3-13); PLATELET COUNT 307 10^3/uL (150-450); RED BLOOD COUNT 4.25 10^6/uL (3.72-5.28); RED CELL DISTRIBUTION WIDTH 13.3 % (11.5-14.0); SEGMENTED NEUTROPHILS % (AUTO) 68.3 % (42-78); TOTAL CELLS COUNTED % (AUTO) 100 %
--- NOTE | 2018-02-08 16:40 | ER Document Report ---
ED Medical Screen (RME) - General Chief Complaint: Nausea/Vomiting/Diarrhea Stated Complaint: NAUSEA/VOMITING/DIARRHEA Time Seen by Provider: 02/08/18 16:27 Notes: 37-year-old female who presents with several days of nausea, vomiting and lower abdominal pain. She was seen in the ER 6 days ago for similar symptoms and was thought to have a ruptured ovarian cyst. She still having some nausea and vomiting. PE: Mild suprapubic pain. No CVA tenderness. RRR. I have greeted and performed a rapid initial assessment of this patient. A comprehensive ED assessment and evaluation of the patient, analysis of test results and completion of the medical decision making process will be conducted by additional ED providers. TRAVEL OUTSIDE OF THE [place] IN LAST 30 DAYS: No - Related Data Allergies/Adverse Reactions: morphine Allergy (Verified 02/08/18 16:08) Past Medical History - Social History Frequency of alcohol use: None Drug Abuse: None Renal/ Medical History: Denies: Hx Peritoneal Dialysis Musculoskeltal Medical History: Reports Hx Arthritis Psychiatric Medical History: Reports: Hx Anxiety, Hx Depression, Hx Post Traumatic Stress Disorder Past Surgical History: Reports: Hx Appendectomy, Hx Gynecologic Surgery - Uterine ablation, Hx Tubal Ligation, Other - Lymph node removed due to CAT scans fever Physical Exam - Vital signs Vitals: Temp Pulse Resp BP Pulse Ox 98.8 F 86 18 115/56 L 98 02/08/18 15:59 02/08/18 15:59 02/08/18 15:59 02/08/18 15:59 02/08/18 15:59 Course - Vital Signs Vital signs: Temp Pulse Resp BP Pulse Ox 98.8 F 86 18 115/56 L 98 02/08/18 15:59 02/08/18 15:59 02/08/18 15:59 02/08/18 15:59 02/08/18 15:59 - Laboratory Result Diagrams: 02/08/18 16:28 02/08/18 16:28
[2018-02-08 16:57] LABS: ALANINE AMINOTRANSFERASE 38 U/L (9-52); ALBUMIN 4.5 g/dL (3.5-5.0); ALKALINE PHOSPHATASE 64 U/L (38-126); ANION GAP 12 (5-19); ASPARTATE AMINO TRANSFERASE 34 U/L (14-36); BILIRUBIN,DIRECT 0.2 mg/dL (0.0-0.4); BILIRUBIN,TOTAL 0.2 mg/dL (0.2-1.3); BLOOD UREA NITROGEN 9 mg/dL (7-20); CALCIUM 10.2 mg/dL (8.4-10.2); CARBON DIOXIDE 26 mmol/L (22-30); CHLORIDE 106 mmol/L (98-107); GLUCOSE 89 mg/dL (75-110); LIPASE 104.6 U/L (23-300); POTASSIUM 4.7 mmol/L (3.6-5.0); SODIUM 143.5 mmol/L (137-145); TOTAL PROTEIN 7.6 g/dL (6.3-8.2)
[2018-02-08] MEDS ORDERED: KETOROLAC TROMETHAMINE INJ/PF 30 MG/1 ML SDV IV ONE (17:51)
--- NOTE | 2018-02-08 18:12 | ER Document Report ---
ED GI/ - General Chief Complaint: Nausea/Vomiting/Diarrhea Stated Complaint: NAUSEA/VOMITING/DIARRHEA Time Seen by Provider: 02/08/18 16:27 Mode of Arrival: Ambulatory Information source: Patient Notes: A 37-year-old female presented to ED for complaint of several days nausea vomiting lower abdominal pain. She was then ED 6 days ago for similar symptoms and was told she had a ovarian cysts there was no longer present. She states she still having some nausea and vomiting. When I looked at the ultrasound and did not say anything about a ruptured ovarian cyst as she is stating it just said that she had a cyst previously and it was not they are now and that she had a now normal pelvic exam on the ultrasound. TRAVEL OUTSIDE OF THE [place] IN LAST 30 DAYS: No - HPI Patient complains to provider of: Pelvic pain, Vomiting. No: Vaginal bleeding Onset: Last week Timing/Duration: Persistent Quality of pain: Sharp Severity at maximum: Moderate Severity in ED: Moderate Pain Level: 3 Location: Pelvis Vaginal bleeding (Compared to normal period): None Associated symptoms: Diarrhea, Nausea, Vomiting Exacerbated by: Movement Relieved by: Denies Similar symptoms previously: Yes Recently seen / treated by doctor: Yes - Related Data Allergies/Adverse Reactions: morphine Allergy (Verified 02/08/18 16:08) Past Medical History - General Information source: Patient - Social History Smoking Status: Current Every Day Smoker Cigarette use (# per day): Yes - One half pack per day Chew tobacco use (# tins/day): No Smoking Education Provided: Yes - 4 minutes Frequency of alcohol use: None Drug Abuse: None Lives with: Family Family History: Reviewed & Not Pertinent Patient has suicidal ideation: No Patient has homicidal ideation: No - Past Medical History Cardiac Medical History: Reports: None Pulmonary Medical History: Reports: None EENT Medical History: Reports: None Neurological Medical History: Reports: None Endocrine Medical History: Reports: None Renal/ Medical History: Reports: Hx Ovarian Cysts Malignancy Medical History: Reports: None GI Medical History: Reports: None Musculoskeltal Medical History: Reports Hx Arthritis Skin Medical History: Reports None Psychiatric Medical History: Reports: Hx Anxiety, Hx Depression, Hx Post Traumatic Stress Disorder Traumatic Medical History: Reports: None Infectious Medical History: Reports: None Past Surgical History: Reports: Hx Appendectomy, Hx Gynecologic Surgery - Uterine ablation, Hx Tubal Ligation, Other - Lymph node removed due to CAT scans fever - Immunizations Immunizations up to date: Yes Review of Systems - Review of Systems Constitutional: No symptoms reported EENT: No symptoms reported Cardiovascular: No symptoms reported Respiratory: No symptoms reported Gastrointestinal: Abdominal pain, Diarrhea, Nausea, Vomiting Genitourinary: No symptoms reported Female Genitourinary: No symptoms reported Musculoskeletal: No symptoms reported Skin: No symptoms reported Hematologic/Lymphatic: No symptoms reported Neurological/Psychological: Headaches -: Yes All other systems reviewed and negative Physical Exam - Vital signs Vitals: Temp Pulse Resp BP Pulse Ox 98.8 F 86 18 115/56 L 98 02/08/18 15:59 02/08/18 15:59 02/08/18 15:59 02/08/18 15:59 02/08/18 15:59 Interpretation: Normal - General General appearance: Appears well, Alert - HEENT Head: Normocephalic, Atraumatic Eyes: Normal Pupils: PERRL Visual mcmillan normal: Yes Ears: Normal External canal: Normal Tympanic membrane: Normal Sinus: Normal, Swelling Mouth/Lips: Normal Mucous membranes: Normal Pharynx: Normal Neck: Normal - Respiratory Respiratory status: No respiratory distress Chest status: Nontender Breath sounds: Normal Chest palpation: Normal - Cardiovascular Rhythm: Regular Heart sounds: Normal auscultation Murmur: No - Abdominal Inspection: Normal Distension: No distension Bowel sounds: Normal Tenderness: Nontender. No: Tender, McBurney's point, Abreu's sign, Guarding Organomegaly: No organomegaly - Back Back: Normal, Nontender - Extremities General upper extremity: Normal inspection, Nontender, Normal color, Normal ROM , Normal temperature General lower extremity: Normal inspection, Nontender, Normal color, Normal ROM , Normal temperature, Normal weight bearing. No: Remberto's sign - Neurological Neuro grossly intact: Yes Cognition: Normal Orientation: AAOx4 [place] Coma Scale Eye Opening: Spontaneous [place] Coma Scale Verbal: Oriented [place] Coma Scale Motor: Obeys Commands [place] Coma Scale Total: 15 Speech: Normal Motor strength normal: LUE, RUE, LLE, RLE Sensory: Normal - Psychological Associated symptoms: Normal affect, Normal mood - Skin Skin Temperature: Warm Skin Moisture: Dry Skin Color: Normal Course - Re-evaluation Re-evalutation: 02/08/18 19:05 Discussed labs with patient and also ultrasound from previous visit. Patient was given a copy of her labs to follow-up with her HORSE RACING MANAGER and primary doctor. Patient was treated with Toradol nausea medicine and IV fluids for her abdominal pain. Her vital signs are stable her labs are stable she has been instructed to follow-up with her primary doctor. She was also given a prescription for Compazine to take with Benadryl and ibuprofen for her headaches. She states she did did get some relief from her headache with the Toradol. After performing a Medical Screening Examination, I estimate there is LOW risk for ACUTE GLAUCOMA, TEMPORAL ARTERITIS, MENINGITIS, INCRANIAL HEMORRHAGE, or ISCHEMIC STROKE thus I consider the discharge disposition reasonable. I have reevaluated this patient multiple times and no significant life threatening changes are noted. The patient and I have discussed the diagnosis and risks, and we agree with discharging home with close follow-up with the understanding that symptoms and presentations can change. We also discussed returning to the Emergency Department immediately if new or worsening symptoms occur. We have discussed the symptoms which are most concerning (e.g., changing or worsening symptoms, new numbness or weakness, vomiting, fever) that necessitate immediate return. - Vital Signs Vital signs: Temp Pulse Resp BP Pulse Ox 98.8 F 86 18 115/56 L 98 02/08/18 15:59 02/08/18 15:59 02/08/18 15:59 02/08/18 15:59 02/08/18 15:59 - Laboratory Result Diagrams: 02/08/18 16:28 02/08/18 16:28 Discharge - Discharge Clinical Impression: Abdominal pain Qualifiers: Abdominal location: generalized Qualified Code(s): R10.84 - Generalized abdominal pain Migraine Qualifiers: Migraine type: unspecified Status migrainosus presence: without status migrainosus Intractability: not intractable Qualified Code(s): G43.909 - Migraine, unspecified, not intractable, without status migrainosus Condition: Stable Disposition: HOME, SELF-CARE Instructions: Family Physicians / Practices Additional Instructions: ABDOMINAL PAIN: There are many causes of abdominal pain. Pain can mean a serious problem requiring surgery (such as appendicitis). It can also be an innocent problem that goes away on its own (such as a viral infection). Often, time must pass to determine the cause of pain. The physician does not feel that hospitalization is necessary, at present. Things may change within the next 24 hours. Call the doctor or come back for re- examination if any problems occur, such as: (1) Pain that becomes more severe, steady, or becomes concentrated in one specific area. Also, pain that is more severe with movement or coughing. (2) Vomiting that persists or becomes more frequent. (3) Blood in the vomitus, urine, or bowel movements. Blood in the stool may have a tarry or black appearance. (4) Shaking chills or fever greater than 100 degrees F. (5) The abdomen becomes more distended or swollen. (6) Bowel movements cease. (7) Failure to improve as expected. HEADACHE: The physician does not feel that the headache you are experiencing has a serious underlying cause. Most headaches are due to emotional stress, with resultant muscle tension (tension headache). Occasionally, headaches are secondary to changes in the blood vessels of the scalp (vascular headache and migraine headache). Sometimes, a headache is the first symptom of another developing illness, such as a viral infection. You have no evidence of stroke, bleeding, meningitis, or other serious cause of your headache. The treatment of headaches varies with the severity and cause of the pain. Not all headaches need pain shots. In fact, there is evidence that using narcotics for headaches may make them worse in the long run. The physician will determine the therapy that's in your best interest. If you develop a fever, if the headache is different from any you've previously experienced, or if the headache progressively worsens, then call your physician at once or go to the emergency room. USE OF DIPHENHYDRAMINE: Diphenhydramine (Benadryl) is an antihistamine and has been recommended to help treat your headache and to prevent side effects of other medications used to treat headaches. The medication can be repeated four times daily. Age Elixir (12.5 mg/tsp) 25 mg pill adult 1-2 tabs Antihistamines may cause drowsiness, especially with the first dose. Do not operate machinery or drive while under the effects of the medication. Do not combine the medication with alcohol, or with any other medication without talking to your doctor. ANTINAUSEA MEDICATION: You have been given a medication to suppress nausea and vomiting. This type of medication can be given as a shot, pill, or suppository. It will usually last for many hours. Pills and shots usually last six to eight hours, suppositories last about 12 hours. For the typical illness, only one or two doses of the medication may be necessary. Mild lightheadedness may occur. This type of medicine can cause drowsiness. Do not drive or operate dangerous machinery while under its influence. Do not mix with alcohol. See your doctor at once if you have muscle spasms or tightness, or uncontrollable motions (particularly of the neck, mouth, or jaw). Persistent vomiting or severe lightheadedness should also be evaluated by the physician. COMPAZINE FOR HEADACHE: You have received therapy for headaches, using Compazine. This treatment is dramatically successful in relieving the headache in about 50 percent of cases. Most patients still feel fully alert after the Compazine, but others may be slightly drowsy. It's best not to drive or work with machinery for six to eight hours. Do not take alcohol or other medication unless you discuss it with the doctor. If you develop tightness and spasms in your muscles, especially the neck and tongue, you should return. This is a side effect which can be treated. TORADOL INJECTION: You have been given an injection of ketorolac tromethamine (Toradol). This is an excellent, safe drug for pain control. It also has potent antiinflammatory action. You should have significant pain relief within about one hour. Toradol is not addicting and is non-sedating. It does not interfere with driving or work. Call or return if you develop itching, hives, shortness of breath, or rash. FOLLOW-UP CARE: If you have been referred to a physician for follow-up care, call the physician s office for an appointment as you were instructed or within the next two days. If you experience worsening or a significant change in your symptoms, notify the physician immediately or return to the Emergency Department at any time for re-evaluation. Prescriptions: Prochlorperazine Maleate [Compazine 10 mg Tablet] 10 mg PO Q6HP PRN #10 tablet PRN Reason: Forms: Smoking Cessation Education
[2018-02-08 18:32] LABS: APPEARANCE,URINE SLIGHTLY-CLOUDY; BILIRUBIN,URINE NEGATIVE (NEGATIVE); COLOR,URINE STRAW; GLUCOSE, URINE NEGATIVE (NEGATIVE); KETONES,URINE NEGATIVE (NEGATIVE); LEUKOCYTE ESTERASE,URINE NEGATIVE (NEGATIVE); NITRITE,URINE NEGATIVE (NEGATIVE); PROTEIN,URINE NEGATIVE (NEGATIVE); UROBILINOGEN,URINE NEGATIVE mg/dL (<2.0)
[2018-02-08 19:20] VITALS: BP 117/63
== END 2018-02-08 19:18 | disposition home or self-care (01) ==
LOC: ER 15:52
DX: G43.909 Migraine, unspecified, not intractable, without status migrainosus (principal); R10.84 Generalized abdominal pain; R10.30 Lower abdominal pain, unspecified; R11.2 Nausea with vomiting, unspecified; R19.7 Diarrhea, unspecified; F17.210 Nicotine dependence, cigarettes, uncomplicated; Z98.51 Tubal ligation status; Z88.6 Allergy status to analgesic agent
CPT/HCPCS: 99406; 99284; 96361; 96374; 96375; 36415; 83690; 85025; 81025; 80053; 81001; J1200; J1885; J2765; J7030

== ENCOUNTER 2018-03-03 23:01 | Emergency (ER) | payer MEDICAID ==
[2018-03-04] MEDS ORDERED: HYDROMORPHONE HCL INJ/PF 2 MG/ML AMPULE IM ONE (00:17)
[2018-03-04 01:27] LABS: T.VAGINALIS (WET MOUNT) NO TRICHOMONAS SEEN; WBCS (WET MOUNT) RARE WBCS SEEN; YEAST (WET MOUNT) NO YEAST SEEN
[2018-03-04 01:28] LABS: BACTERIA (WET MOUNT) 4+ BACTERIA SEEN; EPITHELIALS (WET MOUNT) 4+ EPITHELIALS SEEN; RBCS (WET MOUNT) 2+ RBCS SEEN
--- NOTE | 2018-03-04 01:50 | RADIOLOGY REPORT (SQ) ---
EXAM DESCRIPTION: US PELVIS COMPLETED DATE/TME: 03/04/2018 00:17 CLINICAL HISTORY: 38 years Female, pelvic pain Comparison: 7.5.18 Technique: Transvaginal. LIMITATIONS: None. FINDINGS: 8.5-cm uterus, 0.2-cm endometrial stripe thickness, likely 0.5 cm submucosal cyst, minimal fluid within the endometrial cavity, 3.5-cm cervical length, nabothian cysts, 3.0-cm right ovary, and 4.1-cm left ovary with 2.6 cm dominant cystic follicle (no follow up imaging recommended) appear otherwise unremarkable in size, shape, echotexture, and vascularity. No free fluid. IMPRESSION: Endometrial hypoplasia/atrophy.
[2018-03-04] MEDS ORDERED: HYDROCODONE/ACETAMINOPHEN 5-325 MG TABLET PO ONE (02:04)
[2018-03-04] MEDS ORDERED: HYDROCODONE/ACETAMINOPHEN 5-325 MG (6 TAB/ER DISP) PO PRN (02:38)
--- NOTE | 2018-03-04 02:38 | ER Document Report ---
ED General - General Chief Complaint: Vaginal Bleeding Stated Complaint: ABDOMINAL PAIN Time Seen by Provider: 03/04/18 00:10 Notes: Patient is a 30-year-old female presents with complaint of pelvic pain and some vaginal bleeding. Patient says the pain is been intermittent worsening for 2 months but just recently started having some vaginal bleeding. She has previous history of endometrial ablation due to history of endometriosis. She moved to the area in August and therefore does not have an [employer] doctor in the area and therefore has not been reevaluated for this by a rivet heater. No abnormal vaginal discharge. No fevers. No vomiting. No diarrhea. No other complaints at this time. No dysuria. TRAVEL OUTSIDE OF THE [place] IN LAST 30 DAYS: No - Related Data Allergies/Adverse Reactions: morphine Allergy (Verified 02/08/18 16:08) Past Medical History - Social History Smoking Status: Current Every Day Smoker Chew tobacco use (# tins/day): No Frequency of alcohol use: None Drug Abuse: None Family History: Reviewed & Not Pertinent Patient has suicidal ideation: No Patient has homicidal ideation: No Renal/ Medical History: Reports: Hx Ovarian Cysts. Denies: Hx Peritoneal Dialysis Musculoskeletal Medical History: Reports Hx Arthritis Psychiatric Medical History: Reports: Hx Anxiety, Hx Depression, Hx Post Traumatic Stress Disorder Past Surgical History: Reports: Hx Appendectomy, Hx Gynecologic Surgery - Uterine ablation, Hx Tubal Ligation, Other - Lymph node removed due to CAT scans fever - Immunizations Immunizations up to date: Yes Review of Systems - Review of Systems Notes: My Normal Review Basic REVIEW OF SYSTEMS: CONSTITUTIONAL : Denies fever, chills, or sweats. Denies recent illness. GASTROINTESTINAL: Lower abdominal pain. Denies nausea, vomiting, or diarrhea. Denies constipation. Last BM: GENITOURINARY: Denies difficulty urinating, painful urination, burning, frequency, or blood in urine. FEMALE GENITOURINARY: Vaginal bleeding MUSCULOSKELETAL: Denies neck or back pain or joint pain or swelling. SKIN: Denies rash or skin lesions. NEUROLOGICAL: Denies altered mental status or loss of consciousness. ALL OTHER SYSTEMS REVIEWED AND NEGATIVE. Physical Exam - Vital signs Vitals: Temp Pulse Resp BP Pulse Ox 98.4 F 63 18 85/53 L 99 03/03/18 23:33 03/03/18 23:33 03/03/18 23:33 03/03/18 23:33 03/03/18 23:33 - Notes Notes: General Appearance: Well nourished, alert, cooperative, no acute distress, mild to moderate obvious discomfort. Well appearing Vitals: reviewed, See vital signs table. Head: no swelling or tenderness to the head Eyes: PERRL, EOMI, Conjuctiva clear Mouth: No decreasd moisture Lungs: No wheezing, No rales, No rhonci, No accessory muscle use, good air exchange bilaterally. Heart: Normal rate, Regular rythm, No murmur, no rub Abdomen: Normal BS, soft, No rigidity, mild to moderate lower abdominal tenderness that is worse over the suprapubic and left lower quadrant region, No guarding, no rebound, no abdominal masses, no organomegaly. Pelvic exam: Normal external genitalia. No blood in vaginal vault. No abnormal discharge. Pelvic exam performed with GERALD Booker as the female processing manager. Extremities: strength 5/5 in all extremities, good pulses in all extremities, no swelling or tenderness in the extremities, no edema. Skin: warm, dry, appropriate color, no rash Neuro: speech clear, oriented x 3, normal affect, responds appropriately to questions. Course - Re-evaluation Re-evalutation: 03/04/18 06:18 Patient does not have any concerning findings on exam. She does have some pain to palpation however she is not having peritoneal signs on exam. She does not have significant pain over right lower quadrant. Her pain associate with some vaginal bleeding. Suspect may be redeveloping some endometriosis based on her past history and her current symptoms over last 2 months. I informed that she is follow-up with her rivet heater. I informed her that this may or may not be endometriosis but she does need gynecological follow-up being that she has been having recurrent pelvic pain and some vaginal bleeding. Patient to return to ER if she has fevers, worsening pain, heavy bleeding, or if she feels unwell. Patient agrees with plan will be discharged home. Dictation of this chart was performed using voice recognition software; therefore, there may be some unintended grammatical errors. - Vital Signs Vital signs: Temp Pulse Resp BP Pulse Ox 98.6 F 72 16 102/70 97 03/04/18 01:25 03/04/18 01:25 03/04/18 01:25 03/04/18 01:25 03/04/18 01:25 Discharge - Discharge Clinical Impression: Vaginal bleeding, Pelvic pain Condition: Good Disposition: HOME, SELF-CARE Instructions: Oral Narcotic Medication ([facility]) Additional Instructions: [facility] for further evaluation and treatment of your pelvic pain and vaginal bleeding. Please return to the ER immediately if you develop worsening pain, worsening bleeding, fevers, vomiting, or if you feel unwell. Prescriptions: Hydrocodone/Acetaminophen [[place] 5-325 mg Tablet] 1 tab PO Q4 PRN #10 tablet PRN Reason: For Breakthrough Pain Referrals: KARON ROE MD [ACTIVE STAFF] - 03/06/18
[2018-03-04 03:03] VITALS: BP 102/70
== END 2018-03-04 02:48 | disposition home or self-care (01) ==
LOC: ER 23:01
DX: N93.8 Other specified abnormal uterine and vaginal bleeding (principal); F17.200 Nicotine dependence, unspecified, uncomplicated; R10.2 Pelvic and perineal pain; Z88.6 Allergy status to analgesic agent; Z98.51 Tubal ligation status
CPT/HCPCS: 99284; 96372; 87210; 76856; 93976; J1170

== ENCOUNTER 2018-04-08 16:21 | Inpatient (IN) | payer MEDICAID ==
[2018-04-08] MEDS ORDERED: ONDANSETRON HCL INJ/PF 4 MG/2 ML SDV IV ONE (16:52)
--- NOTE | 2018-04-08 16:52 | ER Document Report ---
ED Medical Screen (RME) - General Chief Complaint: Abdominal Pain Stated Complaint: ABDOMINAL PAIN Time Seen by Provider: 04/08/18 16:49 Mode of Arrival: Ambulatory Information source: Patient Notes: 38-year-old female presents with complaint of abdominal pain that started 3 days prior to arrival. Pain is located in the right upper quadrant, epigastric and periumbilical area. She describes it as a constant stabbing pain that is worse with food. Patient has had associated nausea without vomiting. Her last bowel movement was today. Surgical history of appendectomy, tubal ligation. I have greeted and performed a rapid initial assessment of this patient. A comprehensive ED assessment and evaluation of the patient, analysis of test results and completion of medical decision making process we will be contacted by additional ED providers. General; appears to be uncomfortable, no acute distress Respiratory; no respiratory distress Neuro; alert and oriented 3 TRAVEL OUTSIDE OF THE [place] IN LAST 30 DAYS: No - HPI Onset: Other Onset/Duration: Gradual, Persistent, Worse Quality of pain: Stabbing Severity: Moderate Associated Symptoms: Abdominal pain, Nausea Exacerbated by: Food Relieved by: Denies Similar symptoms previously: No Recently seen / treated by doctor: No - Related Data Smoking: Cigarettes Frequency of alcohol use: None Drug Abuse: None Allergies/Adverse Reactions: morphine Allergy (Verified 04/08/18 16:27) Past Medical History - Social History Chew tobacco use (# tins/day): No Frequency of alcohol use: None Drug Abuse: None Renal/ Medical History: Reports: Hx Ovarian Cysts. Denies: Hx Peritoneal Dialysis Musculoskeltal Medical History: Reports Hx Arthritis Psychiatric Medical History: Reports: Hx Anxiety, Hx Depression, Hx Post Traumatic Stress Disorder Past Surgical History: Reports: Hx Appendectomy, Hx Gynecologic Surgery - Uterine ablation, Hx Tubal Ligation, Other - Lymph node removed due to CAT scans fever - Immunizations Immunizations up to date: Yes Physical Exam - Vital signs Vitals: Temp Pulse Resp BP Pulse Ox 98.4 F 66 16 114/76 100 04/08/18 16:38 04/08/18 16:38 04/08/18 16:38 04/08/18 16:38 04/08/18 16:38 Course - Vital Signs Vital signs: Temp Pulse Resp BP Pulse Ox 98.4 F 66 16 114/76 100 04/08/18 16:38 04/08/18 16:38 04/08/18 16:38 04/08/18 16:38 04/08/18 16:38
[2018-04-08] MEDS ORDERED: FAMOTIDINE INJ/PF 20 MG/2 ML SDV IV ONE (16:53)
--- NOTE | 2018-04-08 17:13 | ER Document Report ---
ED General - General Chief Complaint: Abdominal Pain Stated Complaint: ABDOMINAL PAIN Time Seen by Provider: 04/08/18 16:49 Mode of Arrival: Ambulatory Notes: Patient is a 38-year-old female that presents to the emergency department for chief complaint of right upper quadrant abdominal pain. Patient reports that the pain started about 3 or 4 days ago, seemingly worse with meals, and she had associated nausea but no vomiting. She currently rates the pain as an 8 out of 10, describes as a sharp and stabbing, but there is a constant background dull ache in her right upper quadrant. Denies prior history of issues with her gallbladder, denies history of kidney stones. She denies noting any fevers, chills, night sweats, chest pain, shortness of breath or difficulty breathing. She does report having some dysuria with initiation of urination, denies hematuria Past Medical History: Anxiety Past Surgical History: Appendectomy Social History: Admits to smoking cigarettes, denies alcohol or illicit drug use. Family History: Reviewed and noncontributory for presenting illness Allergies: Reviewed, see documented allergy list. REVIEW OF SYSTEMS: Unless otherwise stated in this report the patient's positive and negative responses for review of systems for constitutional, eyes, ENT, cardiovascular, respiratory, gastrointestinal, neurological, genitourinary, musculoskeletal, and integumentary systems and related systems to the presenting problem are either as stated in the HPI or were not pertinent or were negative for the symptoms and/or complaints related to the presenting medical problem. PHYSICAL EXAMINATION: Vital signs reviewed, nursing noted reviewed. GENERAL: Well-appearing, well-nourished and in no acute distress. HEAD: Atraumatic, normocephalic. EYES: Eyes appear normal, extraocular movements intact, sclera anicteric, conjunctiva are normal. ENT: nares patent, oropharynx clear without exudates. Moist mucous membranes. NECK: Normal range of motion, supple without lymphadenopathy LUNGS: Breath sounds clear to auscultation bilaterally and equal. No wheezes rales or rhonchi. HEART: Regular rate and rhythm without murmurs ABDOMEN: Right upper quadrant tenderness with deep palpation, equivocal Abreu' s sign, soft, normoactive bowel sounds. No rebound, guarding, or rigidity. No masses appreciated. EXTREMITIES: Nontender, good range of motion, no pitting or edema. NEUROLOGICAL: No focal neurological deficits. Moves all extremities spontaneously Motor and sensory grossly intact on exam. PSYCH: Normal mood, normal affect. SKIN: Warm, Dry, normal turgor, no rashes or lesions noted on exposed skin TRAVEL OUTSIDE OF THE [place] IN LAST 30 DAYS: No - Related Data Allergies/Adverse Reactions: morphine Allergy (Verified 04/08/18 16:27) Past Medical History - General Information source: Patient - Social History Smoking Status: Current Every Day Smoker Chew tobacco use (# tins/day): No Frequency of alcohol use: None Drug Abuse: None Family History: Reviewed & Not Pertinent Patient has suicidal ideation: No Patient has homicidal ideation: No Renal/ Medical History: Reports: Hx Ovarian Cysts. Denies: Hx Peritoneal Dialysis Musculoskeletal Medical History: Reports Hx Arthritis Psychiatric Medical History: Reports: Hx Anxiety, Hx Depression, Hx Post Traumatic Stress Disorder Past Surgical History: Reports: Hx Appendectomy, Hx Gynecologic Surgery - Uterine ablation, Hx Tubal Ligation, Other - Lymph node removed due to CAT scans fever - Immunizations Immunizations up to date: Yes Physical Exam - Vital signs Vitals: Temp Pulse Resp BP Pulse Ox 98.4 F 66 16 114/76 100 04/08/18 16:38 04/08/18 16:38 04/08/18 16:38 04/08/18 16:38 04/08/18 16:38 Course - Re-evaluation Re-evalutation: Patient seen and examined vital signs reviewed. Laboratory data and imaging were ordered as appropriate for the patient's presenting symptoms and complaint, with consideration of any critical or life threatening conditions that may be associated with their obtained history and exam as noted above. Patient was treated with IV fluids, Pepcid, Zofran, and Dilaudid Results were reviewed when available and demonstrated elevated lipase, the rest of the patient's blood work was essentially unremarkable, UA negative, right upper quadrant ultrasound was negative for gallstones, or evidence of acute cholecystitis The patient was re-evaluated and was still having some pain, this is the point where the patient had Dilaudid ordered Evaluation was most consistent with acute pancreatitis Results were discussed with the patient at this point after careful consideration I feel that that patient should be admitted to the hospital. This was discussed with the patient that it is in the best interest for their care to be admitted for further evaluation and management. Patient agreed with this plan of care. A call was placed to the admitted physician, Dr. Almodovar who graciously accepted the patient onto their service. *Note is created using voice recognition software and may contain spelling, syntax or grammatical errors. Laboratory 04/08/18 04/08/18 04/08/18 17:42 17:42 17:42 WBC 10.1 RBC 4.13 Hgb 12.8 Hct 38.1 MCV 92 MCH 31.1 MCHC 33.6 RDW 12.4 Plt Count 290 Seg Neutrophils % 64.5 Lymphocytes % 25.7 Monocytes % 7.6 Eosinophils % 1.8 Basophils % 0.4 Absolute Neutrophils 6.5 Absolute Lymphocytes 2.6 Absolute Monocytes 0.8 Absolute Eosinophils 0.2 Absolute Basophils 0.0 Sodium 139.0 Potassium 4.3 Chloride 107 Carbon Dioxide 25 Anion Gap 7 BUN 14 Creatinine 0.72 Est GFR ( Amer) > 60 Est GFR (Non-Af Amer) > 60 Glucose 82 Calcium 9.5 Total Bilirubin 0.3 Direct Bilirubin 0.2 Neonat Total Bilirubin Not Reportable Neonat Direct Bilirubin Not Reportable Neonat Indirect Bili Not Reportable AST 19 ALT 25 Alkaline Phosphatase 60 Total Protein 6.9 Albumin 4.1 Lipase 764.9 H Urine Color STRAW Urine Appearance SLIGHTLY-CLOUDY Urine pH 7.0 Ur Specific [place] 1.008 Urine Protein NEGATIVE Urine Glucose (UA) NEGATIVE Urine Ketones NEGATIVE Urine Blood NEGATIVE Urine Nitrite NEGATIVE Urine Bilirubin NEGATIVE Urine Urobilinogen NEGATIVE Ur Leukocyte Esterase NEGATIVE Urine WBC (Auto) 2 Urine RBC (Auto) 1 Urine Bacteria (Auto) 2+ Squamous Epi Cells Auto 7 Urine Mucus (Auto) RARE Urine Ascorbic Acid NEGATIVE Abdomen Ultrasound 04/08/18 16:49 IMPRESSION: NORMAL RIGHT UPPER QUADRANT ULTRASOUND. - Vital Signs Vital signs: Temp Pulse Resp BP Pulse Ox 97.9 F 51 L 16 91/49 L 100 04/08/18 21:15 04/08/18 21:15 04/08/18 21:15 04/08/18 21:15 04/08/18 21:15 - Laboratory Result Diagrams: 04/08/18 17:42 04/08/18 17:42 Laboratory results interpreted by me: 04/08/18 17:42 Lipase 764.9 H Discharge - Discharge Clinical Impression: Acute pancreatitis Qualifiers: Pancreatitis type: unspecified pancreatitis type Acute pancreatitis complication: unspecified Qualified Code(s): K85.90 - Acute pancreatitis without necrosis or infection, unspecified Condition: Stable Disposition: ADMITTED INPATIENT Admitting Provider: Hospitalist - Dr. Almodovar Unit Admitted: Medical Floor
[2018-04-08] MEDS ORDERED: RINGERS SOLUTION,LACTATED 1,000 ML IV ONE (17:28)
[2018-04-08 18:11] LABS: ABSOLUTE EOSINOPHILS # (AUTO) 0.2 10^3/uL (0.0-0.6); ABSOLUTE LYMPHOCYTES (AUTO) 2.6 10^3/uL (0.5-4.7); ABSOLUTE MONOCYTES (AUTO) 0.8 10^3/uL (0.1-1.4); ABSOLUTE NEUT (AUTO) 6.5 10^3/uL (1.7-8.2); BASOPHILS % (AUTO) 0.4 % (0-2); EOSINOPHILS % (AUTO) 1.8 % (0-6); HEMATOCRIT 38.1 % (36.0-47.0); HEMOGLOBIN 12.8 g/dL (12.0-15.5); LYMPHOCYTES % (AUTO) 25.7 % (13-45); MEAN CORPUSCULAR HEMOGLOBIN 31.1 pg (27.0-33.4); MEAN CORPUSCULAR HGB CONC 33.6 g/dL (32.0-36.0); MEAN CORPUSCULAR VOLUME 92 fl (80-97); MONOCYTES % (AUTO) 7.6 % (3-13); PLATELET COUNT 290 10^3/uL (150-450); RED BLOOD COUNT 4.13 10^6/uL (3.72-5.28); RED CELL DISTRIBUTION WIDTH 12.4 % (11.5-14.0); SEGMENTED NEUTROPHILS % (AUTO) 64.5 % (42-78); TOTAL CELLS COUNTED % (AUTO) 100 %; WHITE BLOOD COUNT 10.1 10^3/uL (4.0-10.5)
[2018-04-08 18:17] LABS: APPEARANCE,URINE SLIGHTLY-CLOUDY; BILIRUBIN,URINE NEGATIVE (NEGATIVE); COLOR,URINE STRAW; GLUCOSE, URINE NEGATIVE (NEGATIVE); KETONES,URINE NEGATIVE (NEGATIVE); LEUKOCYTE ESTERASE,URINE NEGATIVE (NEGATIVE); NITRITE,URINE NEGATIVE (NEGATIVE); PROTEIN,URINE NEGATIVE (NEGATIVE); URINE SPECIFIC GRAVITY 1.008; UROBILINOGEN,URINE NEGATIVE mg/dL (<2.0)
--- NOTE | 2018-04-08 18:28 | RADIOLOGY REPORT (SQ) ---
EXAM DESCRIPTION: U/S ABDOMEN LIMITED W/O DOP COMPLETED DATE/TIME: 04/08/2018 6:09 pm REASON FOR STUDY: pain COMPARISON: None. TECHNIQUE: Dynamic and static grayscale images acquired of the abdomen and recorded on PACS. Additio nal selected color Doppler and spectral images recorded. LIMITATIONS: None. FINDINGS: PANCREAS: No masses. Visualized pancreatic duct normal caliber. LIVER: No masses. Echotexture normal. LIVER VASCULATURE: Normal directional flow of the main portal vein and hepatic veins. GALLBLADDER: No stones. Normal wall thickness. No pericholecystic fluid. ULTRASOUND-DETECTED SHIELDS'S SIGN: Negative. INTRAHEPATIC DUCTS AND COMMON DUCT: CBD and intrahepatic ducts normal caliber. No filling defects. INFERIOR VENA CAVA: Normal flow. AORTA: No aneurysm. RIGHT KIDNEY: Normal size. Normal echogenicity. No solid or suspicious masses. No hydronephrosis. No calcifications. PERITONEAL AND RIGHT PLEURAL SPACE: No ascites or effusions. OTHER: No other significant findings. IMPRESSION: NORMAL RIGHT UPPER QUADRANT ULTRASOUND. TECHNICAL DOCUMENTATION: JOB ID: [id number] [employer]- All Rights Reserved Reading location - IP/workstation name: [email or web address]
[2018-04-08 18:31] LABS: ALANINE AMINOTRANSFERASE 25 U/L (9-52); ALBUMIN 4.1 g/dL (3.5-5.0); ALKALINE PHOSPHATASE 60 U/L (38-126); ANION GAP 7 (5-19); ASPARTATE AMINO TRANSFERASE 19 U/L (14-36); BILIRUBIN,DIRECT 0.2 mg/dL (0.0-0.4); BILIRUBIN,TOTAL 0.3 mg/dL (0.2-1.3); BLOOD UREA NITROGEN 14 mg/dL (7-20); CALCIUM 9.5 mg/dL (8.4-10.2); CARBON DIOXIDE 25 mmol/L (22-30); CHLORIDE 107 mmol/L (98-107); GLUCOSE 82 mg/dL (75-110); LIPASE 764.9 U/L (23-300); POTASSIUM 4.3 mmol/L (3.6-5.0); TOTAL PROTEIN 6.9 g/dL (6.3-8.2)
[2018-04-08] MEDS ORDERED: HYDROMORPHONE HCL INJ/PF 2 MG/ML AMPULE IV ONE (18:58)
[2018-04-08] MEDS ORDERED: NORMAL SALINE 1000 ML 1,000 ML IV ONE (18:58)
[2018-04-08] MEDS ORDERED: PROMETHAZINE HCL INJ 25 MG/1 ML VIAL IV ONE (19:04)
[2018-04-08] MEDS ORDERED: ACETAMINOPHEN 325 MG TABLET PO PRN (21:33)
[2018-04-08] MEDS ORDERED: MAG HYDROX/AL HYDROX/SIMETH SUSP 30 ML UDCUP PO PRN (21:33)
[2018-04-08] MEDS ORDERED: DEXTROSE 40% GEL 15 GM TUBE PO PRN ×2 (21:33)
[2018-04-08] MEDS ORDERED: DEXTROSE 50%-WATER 25 GM/50 ML DISP.SYRIN IV PRN ×2 (21:33)
[2018-04-08] MEDS ORDERED: TEMAZEPAM 7.5 MG CAPSULE PO PRN (21:33)
[2018-04-08] MEDS ORDERED: GLUCAGON,HUMAN RECOMB 1 MG INJ SUBCUT PRN (21:33)
--- NOTE | 2018-04-08 22:39 | PDOC H&P ---
History of Present Illness Admission Date/PCP: 04/08/18 19:54 Patient complains of: Abdominal pain History of Present Illness: VALDEMAR MIJARES is a 38 year old femalePatient comes to the emergency department complaining of right upper quadrant abdominal pain that has been worsening with p.o. intake, sharp in nature, radiated, with nausea but no vomiting, she has been gagging, chills but no fever, lightheadedness on and off. Denies shortness of breath, chest pain, diarrhea, urinary symptoms. Never had similar symptoms in the past. Denies taking oqmo-not-phgjred medications other than ibuprofen. Patient started prazosin 2 months ago. Lipase 764. Right upper quadrant ultrasound negative. Past Medical History Neurological Medical History: Reports: Other - Sciatica Musculoskeltal Medical History: Reports: Arthritis Psychiatric Medical History: Reports: Depression, General Anxiety Disorder, Post Traumatic Stress Disorder Past Surgical History Past Surgical History: Reports: Appendectomy, Tubal Ligation, Other - Lymph node removed due to CAT scans fever Social History Smoking Status: Current Every Day Smoker Cigarettes Packs Per Day: 0.5 Frequency of Alcohol Use: None Hx Recreational Drug Use: No Hx Prescription Drug Abuse: No Past Social History Note: Lives with her who is at the bedside Family History Family History: Reviewed & Not Pertinent Parental Family History Reviewed: Yes Children Family History Reviewed: NA Sibling(s) Family History Reviewed.: NA Medication/Allergy Home Medications: Alprazolam [Xanax Xr 1 mg Tablet Extended Release] 1 mg PO TID 11/20/17 Gabapentin 300 mg PO Q6H 11/20/17 Trazodone HCl 50 mg PO QPM 11/20/17 Buspirone HCl [Buspar 10 mg Tablet] 10 mg PO TID 02/08/18 Allergies/Adverse Reactions: morphine Allergy (Verified 04/08/18 16:27) Review of Systems Review of Systems: As outlined in the HPI, others negative Physical Exam Vital Signs: Temp Pulse Resp BP Pulse Ox 97.9 F 51 L 16 91/49 L 100 04/08/18 21:15 04/08/18 21:15 04/08/18 21:15 04/08/18 21:15 04/08/18 21:15 Intake & Output 04/07/18 04/08/18 04/09/18 06:59 06:59 06:59 Intake Total 1999 Balance 1999 Additional comments: General appearance: Well-developed, well-nourished, alert and cooperative, and appears to be in no acute distress Head: Normocephalic Eyes: PEERL, EOMI, vision is grossly intact. Ears: External auditory canal and tympanic membranes clear, hearing grossly intact. Nose: No nasal discharge. Throat: Oral cavity and pharynx normal. No inflammation, swelling, exudate or lesions. Neck: Neck supple, nontender without lymphadenopathy, masses or thyromegaly. Cardiac: Normal S1 and S2. No S3, S4 or murmurs. Rhythm is regular. There is no peripheral edema, cyanosis or pallor. Extremities are warm and well perfused. Capillary refill is less than 2 seconds. No carotid bruits. Lungs: Clear to auscultation and percussion without rales, rhonchi, wheezing or diminished breath sounds. Not using accessory muscles. Abdomen: Positive bowel sounds. Soft. Mild distention, tenderness in the epigastric and right upper quadrant area. No guarding or rebound. No masses. No hepatosplenomegaly Extremities: No significant deformity or joint abnormality. No edema. Peripheral pulses intact. No varicosities. Neurological: Cranial nerves II through XII grossly intact. Strength and sensation symmetric and intact throughout. Reflexes 2+ throughout. Skin: Skin normal color, texture and turgor with no lesions or eruptions, warm and dry. Psychiatric: The mental examination revealed the patient was oriented to person , place, and time. The patient was able to demonstrate good judgment on recent , without hallucinations, abnormal affect or abnormal behaviors. Results Laboratory Results: 04/08/18 04/08/18 04/08/18 17:42 17:42 17:42 WBC 10.1 RBC 4.13 Hgb 12.8 Hct 38.1 MCV 92 MCH 31.1 MCHC 33.6 RDW 12.4 Plt Count 290 Seg Neutrophils % 64.5 Lymphocytes % 25.7 Monocytes % 7.6 Eosinophils % 1.8 Basophils % 0.4 Absolute Neutrophils 6.5 Absolute Lymphocytes 2.6 Absolute Monocytes 0.8 Absolute Eosinophils 0.2 Absolute Basophils 0.0 Sodium 139.0 Potassium 4.3 Chloride 107 Carbon Dioxide 25 Anion Gap 7 BUN 14 Creatinine 0.72 Est GFR ( Amer) > 60 Est GFR (Non-Af Amer) > 60 Glucose 82 Calcium 9.5 Total Bilirubin 0.3 Direct Bilirubin 0.2 AST 19 ALT 25 Alkaline Phosphatase 60 Total Protein 6.9 Albumin 4.1 Lipase 764.9 H Urine Color STRAW Urine Appearance SLIGHTLY-CLOUDY Ur Specific [place] 1.008 Urine Glucose (UA) NEGATIVE Urine Ketones NEGATIVE Urine Blood NEGATIVE Urine Nitrite NEGATIVE Urine Bilirubin NEGATIVE Urine Urobilinogen NEGATIVE Urine WBC (Auto) 2 Urine RBC (Auto) 1 Urine Bacteria (Auto) 2+ Squamous Epi Cells Auto 7 Urine Mucus (Auto) RARE Urine Ascorbic Acid NEGATIVE Impressions: Abdomen Ultrasound 04/08/18 16:49 IMPRESSION: NORMAL RIGHT UPPER QUADRANT ULTRASOUND. Assessment & Plan - Diagnosis (1) Acute pancreatitis Qualifiers: Pancreatitis type: unspecified pancreatitis type Acute pancreatitis complication: unspecified Qualified Code(s): K85.90 - Acute pancreatitis without necrosis or infection, unspecified Is this a current diagnosis for this admission?: Yes Plan: Chin comes with abdominal pain, lipase 764 with negative right upper quadrant ultrasound, everything is consistent with acute pancreatitis, first episode. Will keep the patient for aggressive IV fluids hydration. IV antiemetics and pain medication. We will keep the patient n.p.o. for now. Repeat lipase in the morning. I am adding serum alcohol levels to prior labs. Tuesday said he denies. IV Protonix. Will repeat lipase in the morning. A1c in the morning. Denies history of cholelithiasis. (2) Anxiety Is this a current diagnosis for this admission?: Yes Plan: Multiple medications at home. - Time Time Spent: 30 to 50 Minutes - Inpatient Certification Based on my medical assessment, after consideration of the patient's comorbidities, presenting symptoms, or acuity I expect that the services needed warrant INPATIENT care.: Yes I certify that my determination is in accordance with my understanding of Medicare's requirements for reasonable and necessary INPATIENT services [42 CFR 412.3e].: Yes Medical Necessity: Risk of Complication if Not Cared For in Hospital
[2018-04-08] MEDS: PROMETHAZINE HCL INJ 25 MG/1 ML VIAL IV PRN (22:40)
[2018-04-08] MEDS: HYDROMORPHONE HCL INJ/PF 2 MG/ML AMPULE IV PRN (22:40)
[2018-04-08] MEDS: NORMAL SALINE 1000 ML 1,000 ML IV PRN (22:40)
[2018-04-08] MEDS ORDERED: TRAZODONE HCL 50 MG TABLET PO ONE (23:00)
[2018-04-08] MEDS ORDERED: NICOTINE 14 MG/24 HR PATCH.TD24 TD ONE (23:30)
[2018-04-08] MEDS ORDERED: BUSPIRONE HCL 10 MG TABLET PO ONE (23:45)
[2018-04-08] MEDS: GABAPENTIN 300 MG CAPSULE PO SCH (23:51)
[2018-04-09] MEDS ORDERED: TRAZODONE HCL 50 MG TABLET PO ONE
[2018-04-09] MEDS ORDERED: DOXAZOSIN MESYLATE 4 MG TABLET PO ONE (00:30)
[2018-04-09] MEDS: ALPRAZOLAM 0.5 MG TABLET PO PRN ×2 (00:47→06:22)
[2018-04-09] MEDS: HYDROMORPHONE HCL INJ/PF 2 MG/ML AMPULE IV PRN ×3 (01:31→07:49)
[2018-04-09 05:35] LABS: ABSOLUTE EOSINOPHILS # (AUTO) 0.2 10^3/uL (0.0-0.6); ABSOLUTE LYMPHOCYTES (AUTO) 3.5 10^3/uL (0.5-4.7); ABSOLUTE MONOCYTES (AUTO) 0.6 10^3/uL (0.1-1.4); ABSOLUTE NEUT (AUTO) 4.3 10^3/uL (1.7-8.2); BASOPHILS % (AUTO) 0.6 % (0-2); EOSINOPHILS % (AUTO) 2.2 % (0-6); HEMATOCRIT 38.9 % (36.0-47.0); LYMPHOCYTES % (AUTO) 40.4 % (13-45); MEAN CORPUSCULAR HEMOGLOBIN 31.1 pg (27.0-33.4); MEAN CORPUSCULAR HGB CONC 33.3 g/dL (32.0-36.0); MEAN CORPUSCULAR VOLUME 93 fl (80-97); MONOCYTES % (AUTO) 6.9 % (3-13); PLATELET COUNT 195 10^3/uL (150-450); RED BLOOD COUNT 4.17 10^6/uL (3.72-5.28); RED CELL DISTRIBUTION WIDTH 12.6 % (11.5-14.0); SEGMENTED NEUTROPHILS % (AUTO) 49.9 % (42-78); TOTAL CELLS COUNTED % (AUTO) 100 %; WHITE BLOOD COUNT 8.7 10^3/uL (4.0-10.5)
[2018-04-09 05:38] LABS: INTERNATIONAL RATION (INR) 0.85; PROTHROMBIN TIME 12.1 SEC (11.4-15.4)
[2018-04-09 05:39] LABS: PARTIAL THROMBOPLASTIN TIME 28.5 SEC (23.5-35.8)
[2018-04-09 06:11] LABS: ALANINE AMINOTRANSFERASE 19 U/L (9-52); ALBUMIN 3.8 g/dL (3.5-5.0); ALKALINE PHOSPHATASE 51 U/L (38-126); ASPARTATE AMINO TRANSFERASE 91 U/L (14-36); BILIRUBIN,DIRECT 0.3 mg/dL (0.0-0.4); BILIRUBIN,TOTAL 0.6 mg/dL (0.2-1.3); BLOOD UREA NITROGEN 11 mg/dL (7-20); CALCIUM 8.9 mg/dL (8.4-10.2); CHLORIDE 113 mmol/L (98-107); GLUCOSE 90 mg/dL (75-110); LIPASE 126.9 U/L (23-300); POTASSIUM 4.1 mmol/L (3.6-5.0); TOTAL PROTEIN 6.7 g/dL (6.3-8.2)
[2018-04-09 06:17] LABS: ANION GAP 6 (5-19); CARBON DIOXIDE 24 mmol/L (22-30); SODIUM 142.8 mmol/L (137-145)
[2018-04-09] MEDS: GABAPENTIN 300 MG CAPSULE PO SCH ×2 (06:22→11:24)
[2018-04-09] MEDS: NORMAL SALINE 1000 ML 1,000 ML IV PRN (06:23)
[2018-04-09] MEDS: PROMETHAZINE HCL INJ 25 MG/1 ML VIAL IV PRN ×3 (06:31→18:13)
[2018-04-09] MEDS ORDERED: PANTOPRAZOLE SODIUM 40 MG VIAL IV SCH (10:00)
[2018-04-09] MEDS: ENOXAPARIN SODIUM INJ 40 MG/0.4 ML DISP.SYRIN SUBCUT SCH (10:22)
[2018-04-09] MEDS: BUSPIRONE HCL 10 MG TABLET PO SCH ×3 (10:22→18:14)
[2018-04-09] MEDS: FAMOTIDINE 20 MG TABLET PO SCH ×2 (10:22→21:21)
[2018-04-09] MEDS: POTASSI CL 20 MEQ/D5-1/2NS 1L 1,000 ML IV PRN ×2 (10:23→19:03)
[2018-04-09] MEDS ORDERED: NALBUPHINE HCL INJ 10 MG/1 ML AMPULE IV PRN ×2 (11:29→12:30)
[2018-04-09] MEDS ORDERED: METOCLOPRAMIDE HCL INJ/PF 10 MG/2 ML SDV IV ONE (11:30)
[2018-04-09] MEDS ORDERED: NALBUPHINE HCL INJ 20 MG/1 ML AMPULE IV PRN (11:32)
[2018-04-09] MEDS ORDERED: HYDROMORPHONE HCL INJ/PF 2 MG/ML AMPULE IV PRN (11:39)
[2018-04-09] MEDS: NALBUPHINE HCL INJ 20 MG/1 ML AMPULE IV PRN ×4 (12:23→21:44)
[2018-04-09] MEDS ORDERED: CLONAZEPAM 1 MG TABLET PO SCH (14:00)
[2018-04-09] MEDS: LIPASE/PROTEASE/AMYLASE 1 CAP CAPSULE.DR PO SCH ×2 (14:12→18:14)
[2018-04-09] MEDS ORDERED: CLONAZEPAM 1 MG TABLET PO ONE (15:30)
[2018-04-09] MEDS: METOCLOPRAMIDE HCL 10 MG TABLET PO SCH ×2 (15:47→21:21)
[2018-04-09] MEDS: SUCRALFATE SUSP 1 GM/10 ML UDCUP PO SCH ×2 (15:47→21:21)
--- NOTE | 2018-04-09 16:56 | RADIOLOGY REPORT (SQ) ---
EXAM DESCRIPTION: CT ABD/PELVIS WITH IV ORAL COMPLETED DATE/TIME: 04/09/2018 4:29 pm REASON FOR STUDY: Abdominal pain COMPARISON: None. TECHNIQUE: CT scan of the abdomen and pelvis performed using helical scanning technique with dynamic intravenous contrast injection. No oral contrast. Images reviewed with lung, soft tissue, and bone windows. Reconstructed coronal and sagittal MPR images reviewed. Delayed images for evaluation of the urinary system also acquired. All images stored on PACS. All CT scanners at this facility use dose modulation, iterative reconstruction, and/or weight based d osing when appropriate to reduce radiation dose to as low as reasonably achievable (ALARA). [facility]: Dose Right [facility]: CareDose [facility]: Dose Right [facility]: Teradose 4D [facility]: [employer] CONTRAST TYPE AND DOSE: contrast/concentration: Isovue 350.00 mg/ml; Total Contrast Delivered: 72.0 ml; Total Saline Delivered: 66.0 ml RENAL FUNCTION: None required. The patient is less than 50 years old. RADIATION DOSE: CT Rad equipment meets quality standard of care and radiation dose reduction techniq ues were employed. CTDIvol: 5.2 - 6.6 mGy. DLP: 631 mGy-cm.. LIMITATIONS: None. FINDINGS: LOWER CHEST: No significant findings. No nodules or infiltrates. LIVER: Normal size. No masses. No dilated ducts. SPLEEN: Normal size. No focal lesions. PANCREAS: No masses. No significant calcifications. No adjacent inflammation or peripancreatic fluid collections. Pancreatic duct not dilated. GALLBLADDER: No identified stones by CT criteria. No inflammatory changes to suggest cholecystitis. ADRENAL GLANDS: No significant masses or asymmetry. RIGHT KIDNEY AND URETER: No solid masses. No significant calcifications. No hydronephrosis or hyd roureter. LEFT KIDNEY AND URETER: No solid masses. No significant calcifications. No hydronephrosis or hydr oureter. AORTA AND VESSELS: No aneurysm. No dissection. Renal arteries, SMA, celiac without stenosis. RETROPERITONEUM: No retroperitoneal adenopathy, hemorrhage or masses. BOWEL AND PERITONEAL CAVITY: No masses or inflammatory changes. No free fluid or peritoneal masses. APPENDIX: Surgically absent. PELVIS: No mass. No free fluid. Normal bladder. ABDOMINAL WALL: No masses. No hernias. BONES: No significant or acute findings. OTHER: No other significant finding. IMPRESSION: NO SIGNIFICANT OR ACUTE FINDING IN THE ABDOMEN OR PELVIS ON CT SCAN WITH IV CONTRAST. TECHNICAL DOCUMENTATION: JOB ID: [id number] Quality ID # [id number]: Final reports with documentation of one or more dose reduction techniques (e.g., Au tomated exposure control, adjustment of the mA and/or kV according to patient size, use of iterative reconstruction technique) 2010 [email or web address]- All Rights Reserved Reading location - IP/workstation name: [email or web address]
[2018-04-09] MEDS ORDERED: TRAZODONE HCL 50 MG TABLET PO SCH (18:00)
--- NOTE | 2018-04-09 21:01 | PDOC H&P ---
History of Present Illness Admission Date/PCP: 04/08/18 19:54 Patient complains of: Upper abdominal pain right upper quadrant and epigastrium History of Present Illness: VERONA MIJARES is a 38 year old female patient who comes to the emergency department complaining of right upper quadrant abdominal pain that has been worsening with p.o. intake. She describes the pain as being sharp in nature right around her umbilicus, and then radiating superiorly and laterally up to the right lower ribs at the mid axillary line and then turning along the right anterior costal margin towards the xiphoid process then down into the epigastrium and back to her umbilical area. She admits nausea, but denies vomiting, though she has been gagging. She admits chills but no fever. She admits lightheadedness on and off. Verona denies shortness of breath, chest pain, diarrhea and urinary symptoms. She denies prior similar episodes. She has not identified any aggravating or ameliorating factors for her abdominal discomfort. She denies taking [id number]-umpaudw medications other than occasional ibuprofen. She admits that she was started on prazosin 2 mg at bedtime 2 months ago. In the emergency room her lipase was 764, and her right upper quadrant ultrasound was negative. Past Medical History Cardiac Medical History: Denies: Hyperlipidema, Hypertension, Pulmonary Embolism, Heart Murmur Pulmonary Medical History: Denies: Asthma, Chronic Obstructive Pulmonary Disease (COPD) EENT Medical History: Denies: Cataracts Neurological Medical History: Reports: Other - Sciatica Denies: Migraine, Multiple Sclerosis, Seizures Endocrine Medical History: Denies: Diabetes Mellitus Type 1, Diabetes Mellitus Type 2, Hyperthyroidism, Hypothyroidism Renal/ Medical History: Denies: Chronic Kidney Disease, Nephrolithiasis Malignancy Medical History: Denies: Breast Cancer, Cervical Cancer GI Medical History: Denies: Gastroesophageal Reflux Disease, Hiatal Hernia, Peptic Ulcer Disease Musculoskeltal Medical History: Reports: Arthritis Denies: Fibromyalgia Skin Medical History: Denies: Eczema, Psoriasis Psychiatric Medical History: Reports: Depression, General Anxiety Disorder, Post Traumatic Stress Disorder Traumatic Medical History: Reports: None Hematology: Denies: Anemia, Bleeding Tendencies Infectious Medical History: Reports: None Past Surgical History Past Surgical History: Reports: Appendectomy, Tubal Ligation, Other - Lymph node removed due to CAT scans fever Social History Smoking Status: Current Every Day Smoker Cigarettes Packs Per Day: 0.5 Frequency of Alcohol Use: None Hx Recreational Drug Use: No Drugs: None Hx Prescription Drug Abuse: No Family History Family History: Reviewed & Not Pertinent Parental Family History Reviewed: Yes Children Family History Reviewed: No Sibling(s) Family History Reviewed.: Yes Medication/Allergy Home Medications: Gabapentin 300 mg PO Q6H 11/20/17 Trazodone HCl 50 mg PO QPM 11/20/17 Buspirone HCl [Buspar 10 mg Tablet] 10 mg PO TID 02/08/18 Alprazolam [Alprazolam] 1 mg PO TID PRN 04/08/18 Prazosin HCl 2 mg PO QHS 04/08/18 Allergies/Adverse Reactions: morphine Allergy (Verified 04/08/18 16:27) Review of Systems Constitutional: PRESENT: chills. ABSENT: fever(s) Eyes: ABSENT: visual disturbances, other - IP Ears: ABSENT: hearing changes, other - Ear pain Nose, Mouth, and Throat: ABSENT: mouth pain, sore throat, vertigo Cardiovascular: ABSENT: chest pain, dyspnea on exertion, edema, palpitations Respiratory: ABSENT: cough, hemoptysis, sputum Gastrointestinal: PRESENT: abdominal pain, nausea, other - Gagging. ABSENT: bloating, constipation, diarrhea, dysphagia, heartburn, hematochezia, melena, vomiting Genitourinary: ABSENT: dysuria, hematuria Musculoskeletal: ABSENT: deformity, joint swelling Integumentary: ABSENT: pruritus, rash Neurological: ABSENT: abnormal speech, confusion, focal weakness, memory loss, numbness, tingling Psychiatric: PRESENT: anxiety. ABSENT: depression, hallucinations Endocrine: ABSENT: cold intolerance, heat intolerance, polyphagia, polyuria Hematologic/Lymphatic: ABSENT: easy bleeding, easy bruising Allergic/Immunologic: PRESENT: seasonal rhinorrhea. ABSENT: other - Insect sting allergies Physical Exam Vital Signs: Temp Pulse Resp BP Pulse Ox 98.6 F 65 18 101/43 L 100 04/09/18 16:00 04/09/18 16:00 04/09/18 16:00 04/09/18 16:00 04/09/18 16:00 Intake & Output 04/08/18 04/09/18 04/10/18 06:59 06:59 06:59 Intake Total 3360 2589 Output Total 0 Balance 3360 2589 Weight 63 kg General appearance: PRESENT: no acute distress, cooperative Head exam: PRESENT: atraumatic, normocephalic Eye exam: PRESENT: conjunctiva pink. ABSENT: conjunctival injection Ear exam: PRESENT: normal external ear exam. ABSENT: drainage Mouth exam: PRESENT: moist, neck supple Neck exam: ABSENT: thyromegaly, tracheal deviation Respiratory exam: PRESENT: clear to auscultation maria del carmen, symmetrical, unlabored Cardiovascular exam: PRESENT: RRR. ABSENT: clicks, gallop, rubs Pulses: PRESENT: normal radial pulses, normal dorsalis pedis pul Vascular exam: PRESENT: normal capillary refill. ABSENT: pallor GI/Abdominal exam: PRESENT: normal bowel sounds, soft, tenderness - Right upper quadrant and epigastrium, most specifically under the costal margin and deep along the right midline area. ABSENT: distended Rectal exam: PRESENT: deferred Extremities exam: PRESENT: full ROM. ABSENT: clubbing, joint swelling, pedal edema, tenderness Musculoskeletal exam: ABSENT: deformity, dislocation, full ROM, normal inspection, tenderness Neurological exam: PRESENT: alert, awake, oriented to person, oriented to place , oriented to time, oriented to situation, CN II-XII grossly intact. ABSENT: motor sensory deficit Psychiatric exam: PRESENT: anxious, other - Passive-aggressive in her overt behavior and having an angry mood. She is unhappy about the fact that she is not getting enough Dilaudid often enough to control her pain. Skin exam: ABSENT: jaundice, rash, urticaria Results Laboratory Results: 04/09/18 04:48 04/09/18 04:48 04/09/18 04/09/18 04:48 04:48 WBC 8.7 RBC 4.17 Hgb 13.0 Hct 38.9 MCV 93 MCH 31.1 MCHC 33.3 RDW 12.6 Plt Count 195 Seg Neutrophils % 49.9 Lymphocytes % 40.4 Monocytes % 6.9 Eosinophils % 2.2 Basophils % 0.6 Absolute Neutrophils 4.3 Absolute Lymphocytes 3.5 Absolute Monocytes 0.6 Absolute Eosinophils 0.2 Absolute Basophils 0.0 Sodium 142.8 Potassium 4.1 Chloride 113 H Carbon Dioxide 24 Anion Gap 6 BUN 11 Creatinine 0.59 Est GFR ( Amer) > 60 Est GFR (Non-Af Amer) > 60 Glucose 90 Calcium 8.9 Magnesium 2.2 Total Bilirubin 0.6 AST 91 H ALT 19 Alkaline Phosphatase 51 Total Protein 6.7 Albumin 3.8 Lipase 126.9 Impressions: Abdomen Ultrasound 04/08/18 16:49 IMPRESSION: NORMAL RIGHT UPPER QUADRANT ULTRASOUND. Abdomen/Pelvis CT 04/09/18 00:00 IMPRESSION: NO SIGNIFICANT OR ACUTE FINDING IN THE ABDOMEN OR PELVIS ON CT SCAN WITH IV CONTRAST. Assessment & Plan - Diagnosis (1) Abdominal pain Qualifiers: Abdominal location: upper abdomen, unspecified Qualified Code(s): R10.10 - Upper abdominal pain, unspecified Is this a current diagnosis for this admission?: Yes Plan: Patient's pain does not appear to be very significant and she is asking for larger doses of Dilaudid administered more frequently. I will stop the patient' s Dilaudid at this point and treat her with Nubain. Additionally the patient has Xanax scheduled and this is also a drug of significant abuse or convert this to clonazepam 1 mg p.o. 3 times daily. When these changes were made known to the patient she immediately asked that I be fired as her physician and should be supplied with a new physician who would give her the Dilaudid that she wants. Dr. Pruitt has been enough to stand and as the patient's hospitalist for today though I have managed her problems and submitted all of her orders, since I am familiar with her. (2) Serum lipase elevation Is this a current diagnosis for this admission?: Yes Plan: Serum lipase has returned to normal, will recheck lipase and amylase in the morning. Patient has been receiving some supplemental pancreatic enzymes along with her diet Reglan and Carafate to manage her abdominal pain and discomfort while allowing her to eat. The pancreatic enzymes will be withdrawn tomorrow if amylase and lipase are again negative. (3) Anxiety Is this a current diagnosis for this admission?: Yes Plan: Patient has significant anxiety and posttraumatic stress disorder with a extremely passive-aggressive attitude in dealing with her physicians. Patient is being treated with clonazepam 1 mg p.o. 3 times daily and further medication will be considered by her new hospitalists. - Time Time Spent: 30 to 50 Minutes Smoking Cessation Education: 3 to 10 minutes Medications reviewed and adjusted accordingly: Yes Anticipated discharge: Home Within: within 72 hours Disposition: This note is actually a hospitalist observation day note and not truly a hospitalist H&P. The note was completed under the wrong format heading but this note will be sent it as being reflective of the services of a routine daily progress visit of greater than 35 minutes duration.
[2018-04-09] MEDS: CLONAZEPAM 1 MG TABLET PO SCH (21:21)
[2018-04-09] MEDS ORDERED: NICOTINE 14 MG/24 HR PATCH.TD24 TD SCH (22:00)
[2018-04-09] MEDS ORDERED: DOXAZOSIN MESYLATE 2 MG TABLET PO SCH (22:00)
[2018-04-09] MEDS ORDERED: (PENDING PHARMACY ID) (Prazosin Hcl [Prazosin Hcl] 2 MG) PO SCH ×2 (22:00)
[2018-04-09] MEDS ORDERED: DOXAZOSIN MESYLATE 4 MG TABLET PO SCH (22:00)
[2018-04-10] MEDS: NALBUPHINE HCL INJ 20 MG/1 ML AMPULE IV PRN ×5 (01:24→16:37)
[2018-04-10] MEDS: POTASSI CL 20 MEQ/D5-1/2NS 1L 1,000 ML IV PRN ×2 (01:24→09:01)
[2018-04-10] MEDS: CLONAZEPAM 1 MG TABLET PO SCH ×2 (06:00→13:04)
--- NOTE | 2018-04-10 08:20 | Physician Advisory Note ---
Physician Advisor ProgressNote .: Pursuant to the plan for [facility], I have reviewed the medical record for this patient. Physician Advisor Statement: Please consider documenting, if you agree: 1. "Benzodiazepine dependence" 2. Reason(s) pt given regular diet starting 04/09 bkft (payer may question it in reference to severity of illness/intensity of service/level of attending concern ) Status: appears approp for Inpt status. - GAVINO pt w/acute pancreatitis, put on IVF w/K @150+ml/hr since adm, using IV Dilaudid 4x by 8AM on 04/09, with hypotension down to 81/51 at 8AM on 04/09, then using IV Nubain 4x on 04/09, & 2x more already on 04/10, & IV Phenergan 3x on 04/09 despite ongoing REglan qac/hs. In hospital care w/high risk meds x 2 nights already. CK
[2018-04-10] MEDS: FAMOTIDINE 20 MG TABLET PO SCH (09:05)
[2018-04-10] MEDS: METOCLOPRAMIDE HCL 10 MG TABLET PO SCH ×3 (09:05→16:48)
[2018-04-10] MEDS: BUSPIRONE HCL 10 MG TABLET PO SCH ×3 (09:05→17:44)
[2018-04-10] MEDS: PROMETHAZINE HCL INJ 25 MG/1 ML VIAL IV PRN ×2 (09:05→13:07)
[2018-04-10] MEDS: SUCRALFATE SUSP 1 GM/10 ML UDCUP PO SCH ×3 (09:05→16:40)
[2018-04-10] MEDS: LIPASE/PROTEASE/AMYLASE 1 CAP CAPSULE.DR PO SCH ×3 (09:06→16:40)
[2018-04-10] MEDS: ENOXAPARIN SODIUM INJ 40 MG/0.4 ML DISP.SYRIN SUBCUT SCH (09:08)
[2018-04-10] MEDS ORDERED: PROMETHAZINE HCL INJ 25 MG/1 ML VIAL IV PRN (13:30)
[2018-04-10 15:23] LABS: APPEARANCE,URINE CLEAR; BILIRUBIN,URINE NEGATIVE (NEGATIVE); COLOR,URINE STRAW; GLUCOSE, URINE NEGATIVE (NEGATIVE); KETONES,URINE NEGATIVE (NEGATIVE); LEUKOCYTE ESTERASE,URINE NEGATIVE (NEGATIVE); NITRITE,URINE NEGATIVE (NEGATIVE); PROTEIN,URINE NEGATIVE (NEGATIVE); URINE SPECIFIC GRAVITY 1.004; UROBILINOGEN,URINE NEGATIVE mg/dL (<2.0)
[2018-04-10 17:47] VITALS: BP 102/44
--- NOTE | 2018-05-10 13:25 | PDOC DISCHARGE SUMMARY ---
General - Admit/Disc Date/PCP Admission Date/Primary Care Provider: 04/10/18 07:30 Discharge Date: 04/10/18 - Discharge Diagnosis (1) Abdominal pain Is this a current diagnosis for this admission?: Yes (2) Acute pancreatitis Is this a current diagnosis for this admission?: Yes (3) Anxiety Is this a current diagnosis for this admission?: Yes (4) Serum lipase elevation Is this a current diagnosis for this admission?: Yes - Additional Information Discharge Diet: As Tolerated Discharge Activity: Activity As Tolerated, Balance Activity w/Rest Prescriptions: Ondansetron [Ondansetron Odt] 4 mg PO Q6HP PRN #10 tab.rapdis PRN Reason: Tramadol HCl [Ultram] 50 mg PO Q6HP PRN #10 tablet PRN Reason: Home Medications: Gabapentin 300 mg PO Q6H 11/20/17 Trazodone HCl 50 mg PO QPM 11/20/17 Buspirone HCl [Buspar 10 mg Tablet] 10 mg PO TID 02/08/18 Alprazolam 1 mg PO TID PRN 04/08/18 Prazosin HCl 2 mg PO QHS 04/08/18 Ondansetron [Ondansetron Odt] 4 mg PO Q6HP PRN #10 tab.rapdis 04/10/18 Tramadol HCl [Ultram] 50 mg PO Q6HP PRN #10 tablet 04/10/18 Hydrocodone/Acetaminophen [Marion 5-325 Tablet] 1 each PO Q6 PRN #12 tablet 04/22 Ondansetron [Zofran Odt 4 mg Tablet] 1 tab PO Q6H #15 tab.rapdis 04/22/18 History of Present Illness History of Present Illness: VALDEMAR MIJARES is a 38 year old femalePatient comes to the emergency department complaining of right upper quadrant abdominal pain that has been worsening with p.o. intake, sharp in nature, radiated, with nausea but no vomiting, she has been gagging, chills but no fever, lightheadedness on and off. Denies shortness of breath, chest pain, diarrhea, urinary symptoms. Never had similar symptoms in the past. Denies taking [id number] medications other than ibuprofen. Patient started prazosin 2 months ago. Lipase 764. Right upper quadrant ultrasound negative. Hospital Course Hospital Course: 38 Y.O. F admitted for suspected pancreatitis. Her Lipase upon admission was 764. All radiological studies were negative. The patient was able to tolerate a PO diet and received supplemental pancreatic enzymes along with Reglan and Carafate to manage her abdominal pain and discomfort while allowing her to eat. Her lipase decreased to 126 the following day. The patient was specifically requesting IV dilaudid for pain mangement - a very strong narcotic pain medication that seems inappropriate when the patient is only describing mild pain and able to tolerate her diet. After 2 days in the hospital, the patient was discharged home. Her vital signs were normal, she was tolerating a PO diet and her pain was relatively well controlled. The patient is currently insured by [place] Medicaid, and encouraged to follow up with a health director. She was sent home with prescriptions for Zofran and Tramadol to help with her nausea and pain. The patient was counseled on the importance of avoiding ETOH and eating a balanced diet. She stated full understanding of her discharge instructions. For further information regarding the patient's hospitalization, please refer to the EMR. Physical Exam Vital Signs: Temp Pulse Resp BP Pulse Ox 97.9 F 74 16 96/64 L 99 04/10/18 16:59 04/10/18 16:59 04/10/18 16:59 04/10/18 16:59 04/10/18 16:59 Results Impressions: Abdomen Ultrasound 04/08/18 16:49 IMPRESSION: NORMAL RIGHT UPPER QUADRANT ULTRASOUND. Abdomen/Pelvis CT 04/09/18 00:00 IMPRESSION: NO SIGNIFICANT OR ACUTE FINDING IN THE ABDOMEN OR PELVIS ON CT SCAN WITH IV CONTRAST. Status: Imported from PACS Qualifiers - * PATIENT BEING DISCHARGED WITH ANY OF THE FOLLOWING DIAGNOSIS: No Plan Discharge Plan: DISCHARGE HOME WITH ANTIEMETICS AND PAIN MEDICATION. FOLLOW UP WITH IC ENGINEER. Time Spent: Less than 30 Minutes
== END 2018-04-10 17:58 | disposition home or self-care (01) | DRG 440 ==
LOC: ER 16:21 → EH 19:54 → INTOOBSV 19:54 → 5 23:46 → OBSVTOIN 04-10 07:30
PROVIDERS: ADMIT Internal Medicine; ATTEND Internal Medicine
DX: K85.90 Acute pancreatitis without necrosis or infection, unspecified (principal); M19.90 Unspecified osteoarthritis, unspecified site; F32.9 Major depressive disorder, single episode, unspecified; F41.1 Generalized anxiety disorder; F43.10 Post-traumatic stress disorder, unspecified; F17.210 Nicotine dependence, cigarettes, uncomplicated; Z79.899 Other long term (current) drug therapy; Z88.6 Allergy status to analgesic agent
CPT/HCPCS: 36415; 74177; 76705; 80053; 80307; 81001; 83036; 83690; 83735; 84478; 85025; 85610; 85730; 96374; 96375; 99285; J1170; J1650; J2300; J2405; J2550; J2765; J3480; J3490; J7030; J7120; S0028

== ENCOUNTER 2018-04-22 11:22 | Emergency (ER) | payer MEDICAID ==
[2018-04-22] MEDS ORDERED: RINGERS SOLUTION,LACTATED 1,000 ML IV ONE (11:43)
[2018-04-22] MEDS ORDERED: KETOROLAC TROMETHAMINE INJ/PF 30 MG/1 ML SDV IV ONE (11:43)
[2018-04-22] MEDS ORDERED: FAMOTIDINE INJ/PF 20 MG/2 ML SDV IV ONE (11:43)
--- NOTE | 2018-04-22 11:44 | ER Document Report ---
ED Medical Screen (RME) - General Chief Complaint: Abdominal Pain Stated Complaint: ABDOMINAL PAIN Time Seen by Provider: 04/22/18 11:37 Notes: 38-year-old female who returns to the emergency with persistent right upper quadrant abdominal pain. Some nausea. Has a history of pancreatitis. No fever , chills, sweats. Pain began at 2 AM. States that she felt fine yesterday. Had steak and mashed potatoes last night for dinner. Pain began in the epigastric and right upper quadrant pain radiates to the right flank. I have greeted and performed a rapid initial assessment of this patient. A comprehensive ED assessment and evaluation of the patient, analysis of test results and completion of the medical decision making process will be conducted by additional ED providers. TRAVEL OUTSIDE OF THE [place] IN LAST 30 DAYS: No - Related Data Allergies/Adverse Reactions: morphine Allergy (Verified 04/22/18 11:24) Past Medical History - Social History Chew tobacco use (# tins/day): No Frequency of alcohol use: None Drug Abuse: None - Past Medical History Cardiac Medical History: Denies: Hx Hypercholesterolemia, Hx Hypertension, Hx Pulmonary Embolism, Hx Heart Murmur Pulmonary Medical History: Denies: Hx Asthma, Hx COPD Neurological Medical History: Denies: Hx Migraine, Hx Seizures Endocrine Medical History: Denies: Hx Diabetes Mellitus Type 1, Hx Diabetes Mellitus Type 2, Hx Hyperthyroidism, Hx Hypothyroidism Renal/ Medical History: Reports: Hx Ovarian Cysts. Denies: Hx Peritoneal Dialysis Malignancy Medical History: Denies: Hx Breast Cancer, Hx Cervical Cancer GI Medical History: Denies: Hx Gastroesophageal Reflux Disease, Hx Hiatal Hernia Musculoskeltal Medical History: Reports Hx Arthritis, Denies Hx Fibromyalgia Skin Medical History: Denies Hx Eczema, Denies Hx Psoriasis Psychiatric Medical History: Reports: Hx Anxiety, Hx Depression, Hx Post Traumatic Stress Disorder Past Surgical History: Reports: Hx Appendectomy, Hx Gynecologic Surgery - Uterine ablation, Hx Tubal Ligation, Other - Lymph node removed due to CAT scans fever - Immunizations Immunizations up to date: Yes Physical Exam - Vital signs Vitals: Temp Pulse Resp BP Pulse Ox 98.1 F 71 16 100/54 L 100 04/22/18 11:31 04/22/18 11:31 04/22/18 11:31 04/22/18 11:31 04/22/18 11:31 Course - Vital Signs Vital signs: Temp Pulse Resp BP Pulse Ox 98.1 F 71 16 100/54 L 100 04/22/18 11:31 04/22/18 11:31 04/22/18 11:31 04/22/18 11:31 04/22/18 11:31
[2018-04-22 12:16] LABS: ABSOLUTE BASOPHILS # (AUTO) 0.1 10^3/uL (0.0-0.2); ABSOLUTE EOSINOPHILS # (AUTO) 0.1 10^3/uL (0.0-0.6); ABSOLUTE LYMPHOCYTES (AUTO) 2.3 10^3/uL (0.5-4.7); ABSOLUTE MONOCYTES (AUTO) 0.5 10^3/uL (0.1-1.4); ABSOLUTE NEUT (AUTO) 6.7 10^3/uL (1.7-8.2); APPEARANCE,URINE CLEAR; BASOPHILS % (AUTO) 1.2 % (0-2); BILIRUBIN,URINE NEGATIVE (NEGATIVE); COLOR,URINE STRAW; EOSINOPHILS % (AUTO) 1.2 % (0-6); GLUCOSE, URINE NEGATIVE (NEGATIVE); HEMATOCRIT 41.7 % (36.0-47.0); HEMOGLOBIN 14.1 g/dL (12.0-15.5); KETONES,URINE NEGATIVE (NEGATIVE); LEUKOCYTE ESTERASE,URINE NEGATIVE (NEGATIVE); LYMPHOCYTES % (AUTO) 23.3 % (13-45); MEAN CORPUSCULAR HEMOGLOBIN 31.1 pg (27.0-33.4); MEAN CORPUSCULAR HGB CONC 33.7 g/dL (32.0-36.0); MEAN CORPUSCULAR VOLUME 92 fl (80-97); MONOCYTES % (AUTO) 5.3 % (3-13); NITRITE,URINE NEGATIVE (NEGATIVE); PLATELET COUNT 372 10^3/uL (150-450); PROTEIN,URINE NEGATIVE (NEGATIVE); RED BLOOD COUNT 4.52 10^6/uL (3.72-5.28); RED CELL DISTRIBUTION WIDTH 12.6 % (11.5-14.0); TOTAL CELLS COUNTED % (AUTO) 100 %; URINE SPECIFIC GRAVITY 1.004; UROBILINOGEN,URINE NEGATIVE mg/dL (<2.0); WHITE BLOOD COUNT 9.7 10^3/uL (4.0-10.5)
[2018-04-22 12:36] LABS: ALANINE AMINOTRANSFERASE 29 U/L (9-52); ALBUMIN 4.8 g/dL (3.5-5.0); ALKALINE PHOSPHATASE 61 U/L (38-126); ANION GAP 8 (5-19); ASPARTATE AMINO TRANSFERASE 26 U/L (14-36); BILIRUBIN,DIRECT 0.5 mg/dL (0.0-0.4); BILIRUBIN,TOTAL 0.6 mg/dL (0.2-1.3); BLOOD UREA NITROGEN 11 mg/dL (7-20); CALCIUM 9.8 mg/dL (8.4-10.2); CARBON DIOXIDE 26 mmol/L (22-30); CHLORIDE 107 mmol/L (98-107); GLUCOSE 93 mg/dL (75-110); LIPASE 179.9 U/L (23-300); POTASSIUM 4.9 mmol/L (3.6-5.0); SODIUM 140.8 mmol/L (137-145); TOTAL PROTEIN 8.4 g/dL (6.3-8.2)
--- NOTE | 2018-04-22 12:59 | RADIOLOGY REPORT (SQ) ---
EXAM DESCRIPTION: U/S ABDOMEN LIMITED W/O DOP COMPLETED DATE/TIME: 04/22/2018 12:39 pm REASON FOR STUDY: ruq pain COMPARISON: None. TECHNIQUE: Dynamic and static grayscale images acquired of the abdomen and recorded on PACS. Additio nal selected color Doppler and spectral images recorded. LIMITATIONS: None. FINDINGS: PANCREAS: No masses. Visualized pancreatic duct normal caliber. LIVER: No masses. Echotexture normal. LIVER VASCULATURE: Normal directional flow of the main portal vein and hepatic veins. GALLBLADDER: Contracted. No stones. Normal wall thickness. No pericholecystic fluid. ULTRASOUND-DETECTED SHIELDS'S SIGN: Negative. INTRAHEPATIC DUCTS AND COMMON DUCT: CBD and intrahepatic ducts normal caliber. No filling defects. INFERIOR VENA CAVA: Normal flow. AORTA: No aneurysm. RIGHT KIDNEY: Normal size. Normal echogenicity. No solid or suspicious masses. No hydronephrosis. No calcifications. PERITONEAL AND RIGHT PLEURAL SPACE: No ascites or effusions. OTHER: No other significant findings. IMPRESSION: NORMAL RIGHT UPPER QUADRANT ULTRASOUND. TECHNICAL DOCUMENTATION: JOB ID: [id number]- All Rights Reserved Reading location - IP/workstation name: [email or web address]
[2018-04-22] MEDS ORDERED: HYDROMORPHONE HCL INJ/PF 2 MG/ML AMPULE IV ONE (13:18)
[2018-04-22] MEDS ORDERED: ONDANSETRON HCL INJ/PF 4 MG/2 ML SDV IV ONE (13:18)
--- NOTE | 2018-04-22 13:26 | ER Document Report ---
ED GI/ - General Chief Complaint: Abdominal Pain Stated Complaint: ABDOMINAL PAIN Time Seen by Provider: 04/22/18 11:37 Information source: Patient Notes: Patient is a 38-year-old female that presents today with the onset around 2 days ago of some epigastric pain radiating to her back. She states nausea without vomiting, fevers, lower abdominal pain, or dysuria. Patient was recently seen here around 2 weeks ago and was diagnosed with possible acute pancreatitis. She had an unremarkable ultrasound of the abdomen and a CT scan of the abdomen and pelvis. Patient denies alcohol abuse. Past medical history and previous history and physical examination as dictated by the previous physician. TRAVEL OUTSIDE OF THE [place] IN LAST 30 DAYS: No - HPI Patient complains to provider of: Abdominal pain Onset: Other - See above Timing/Duration: Gradual Quality of pain: Achy Severity at maximum: Moderate Severity in ED: Moderate Pain Level: 2 Location: Other - See above Vaginal bleeding (Compared to normal period): None Sexual history: Inactive Associated symptoms: Other - See above Exacerbated by: Denies Relieved by: Denies Similar symptoms previously: Yes Recently seen / treated by doctor: Yes - Related Data Allergies/Adverse Reactions: morphine Allergy (Verified 04/22/18 11:24) Past Medical History - Social History Smoking Status: Current Every Day Smoker Cigarette use (# per day): No Chew tobacco use (# tins/day): No Smoking Education Provided: No Frequency of alcohol use: None Drug Abuse: None Family History: Reviewed & Not Pertinent Patient has suicidal ideation: No Patient has homicidal ideation: No - Past Medical History Cardiac Medical History: Denies: Hx Hypercholesterolemia, Hx Hypertension, Hx Pulmonary Embolism, Hx Heart Murmur Pulmonary Medical History: Denies: Hx Asthma, Hx COPD Neurological Medical History: Denies: Hx Migraine, Hx Seizures Endocrine Medical History: Denies: Hx Diabetes Mellitus Type 1, Hx Diabetes Mellitus Type 2, Hx Hyperthyroidism, Hx Hypothyroidism Renal/ Medical History: Reports: Hx Ovarian Cysts. Denies: Hx Peritoneal Dialysis Malignancy Medical History: Denies: Hx Breast Cancer, Hx Cervical Cancer GI Medical History: Denies: Hx Gastroesophageal Reflux Disease, Hx Hiatal Hernia Musculoskeletal Medical History: Reports Hx Arthritis, Denies Hx Fibromyalgia Skin Medical History: Denies Hx Eczema, Denies Hx Psoriasis Psychiatric Medical History: Reports: Hx Anxiety, Hx Depression, Hx Post Traumatic Stress Disorder Past Surgical History: Reports: Hx Appendectomy, Hx Gynecologic Surgery - Uterine ablation, Hx Tubal Ligation, Other - Lymph node removed due to CAT scans fever - Immunizations Immunizations up to date: Yes Review of Systems - Review of Systems Constitutional: denies: Fever EENT: denies: Eye discharge, Nose discharge Cardiovascular: denies: Chest pain, Palpitations Respiratory: denies: Short of breath Gastrointestinal: denies: Vomiting Genitourinary: denies: Dysuria Musculoskeletal: denies: Leg swelling Skin: Other - no hives. denies: Rash Neurological/Psychological: Other - no slurred speech -: Yes All other systems reviewed and negative Physical Exam - Vital signs Vitals: Temp Pulse Resp BP Pulse Ox 98.1 F 71 16 100/54 L 100 04/22/18 11:31 04/22/18 11:31 04/22/18 11:31 04/22/18 11:04/22/18 11:31 Notes: Reviewed vital signs and nursing note as charted by RN. CONSTITUTIONAL: Alert and oriented and responds appropriately to questions. Well -appearing; well-nourished HEAD: Normocephalic; atraumatic EYES: Sclerae non-icteric ENT: Normal nose; no rhinorrhea; moist mucous membranes; pharynx without lesions noted NECK: Supple without meningismus; non-tender; no cervical lymphadenopathy, no masses CARD: Regular rate and rhythm; no murmurs, no clicks, no rubs, no gallops; symmetric distal pulses RESP: Normal chest excursion without splinting or tachypnea; breath sounds clear and equal bilaterally; no wheezes, no rhonchi, no rales ABD/GI: Normal bowel sounds; non-distended; soft, mild tenderness without rebound or guarding to the epigastric region; there is no lower abdominal tenderness BACK: The back appears normal and is non-tender to palpation, there is no CVA tenderness EXT: Normal ROM in all joints; non-tender to palpation; no cyanosis, no effusions, no edema SKIN: No acute lesions noted NEURO: Moves all extremities equally; Motor and sensory function intact PSYCH: The patient's mood and manner are appropriate. Grooming and personal hygiene are appropriate. Course - Re-evaluation Re-evalutation: Given the above history and physical examination, basic labs including a liver panel and lipase were obtained. Repeat ultrasound was ordered in triage. 04/22/18 13:23 Labs as recorded. Normal white count, normal liver panel, normal lipase. Repeat ultrasound is unremarkable. Given the same symptomatology with vital signs as recorded, with unremarkable CT scan of the abdomen and pelvis around 2 weeks ago, I do not believe repeat imaging is necessary or appropriate at this time. There was some concern previously about possible agitation and narcotic seeking behavior. I will take the patient's pain very seriously and I will provide a one-time dose of Dilaudid here. Patient has had no vomiting with a creatinine as recorded. Patient now states that the pain does seem to increase when eating. Given the unremarkable workup thus far, with the recent imaging on previous admission, with a lipase as recorded, I do believe that the patient may benefit from gastroenterology follow-up and possibly endoscopy. - Vital Signs Vital signs: Temp Pulse Resp BP Pulse Ox 98.1 F 71 16 100/54 L 100 04/22/18 11:31 04/22/18 11:31 04/22/18 11:31 04/22/18 11:31 04/22/18 11:31 - Laboratory Result Diagrams: 04/22/18 11:56 04/22/18 11:56 Laboratory results interpreted by me: 04/22/18 11:56 Direct Bilirubin 0.5 H Total Protein 8.4 H Discharge - Discharge Clinical Impression: Epigastric abdominal pain Condition: Good Disposition: HOME, SELF-CARE Additional Instructions: Come back immediately with any return of pain, change in location or quality of pain, fevers or vomiting, or any other acute problems. Please make sure that you follow-up with the outpatient elder counselor and primary care physician that we have discussed. You may benefit also from starting Prilosec [id number] 1 tablet daily. Prescriptions: Hydrocodone/Acetaminophen [Brusly 5-325 Tablet] 1 each PO Q6 PRN #12 tablet PRN Reason: For Pain Ondansetron [Zofran Odt 4 mg Tablet] 1 tab PO Q6H #15 tab.rapdis Referrals: KRISTINA SCRUGGS MD [ACTIVE STAFF] - Follow up as needed
[2018-04-22 13:54] VITALS: BP 106/58
== END 2018-04-22 13:54 | disposition home or self-care (01) ==
LOC: ER 11:22
DX: R10.13 Epigastric pain (principal); R11.0 Nausea; F17.200 Nicotine dependence, unspecified, uncomplicated; Z90.49 Acquired absence of other specified parts of digestive tract; Z88.5 Allergy status to narcotic agent
CPT/HCPCS: 99284; 96361; 96374; 96375; 36415; 83690; 85025; 81025; 80053; 81001; 76705; J1885; J1170; J2405; S0028

== ENCOUNTER 2018-05-17 13:12 | Emergency (ER) | payer MEDICAID, OTHER ==
[2018-05-17] MEDS ORDERED: DEXAMETHASONE SOD PHOS INJ 10 MG/1 ML VIAL IM ONE (14:58)
[2018-05-17] MEDS ORDERED: METHOCARBAMOL 500 MG TABLET PO ONE (14:58)
[2018-05-17] MEDS ORDERED: KETOROLAC TROMETHAMINE INJ/PF 30 MG/1 ML SDV IM ONE (14:58)
--- NOTE | 2018-05-17 14:58 | ER Document Report ---
ED Neck/Back Problem - General Chief Complaint: Back Pain Stated Complaint: FALL/SHOULDER PAIN Time Seen by Provider: 05/17/18 14:32 Mode of Arrival: Ambulatory Information source: Patient Notes: 38-year-old female presents to ED for complaint of injury to her back and right shoulder yesterday at work. She states she was trying to transfer patient from a shower chair to wheelchair when he looked like he was going lose his balance so she grabbed him and took him to the floor so that he would not fall. She states she has had pain to her shoulder and back since then. She states she took 400 mg of ibuprofen this morning and has tried to move around. She states the pain is getting worse. Patient does have full range of motion of the shoulder but states that it hurts to move the shoulder. Patient is alert and oriented respirations are speaking in full sentences steady gait. TRAVEL OUTSIDE OF THE [place] IN LAST 30 DAYS: No - HPI Patient complains to provider of: Pain, Injury, Upper back - Right shoulder area , Lower back Onset: Yesterday Where: Work Onset: Gradual Timing: Still present Quality of pain: Burning, Cramping, Sharp Severity: Moderate Pain Level: 3 Context: Lifting Recent injury: Possibly Associated symptoms: Lower back pain, Other - Right shoulder Exacerbated by: Movement of neck, Movement of trunk, Sitting position Relieved by: Remaining still Similar symptoms previously: No Recently seen / treated by doctor: No - Related Data Allergies/Adverse Reactions: morphine Allergy (Verified 05/17/18 13:13) Past Medical History - General Information source: Patient - Social History Smoking Status: Current Every Day Smoker Cigarette use (# per day): Yes - Half pack a day Chew tobacco use (# tins/day): No Smoking Education Provided: Yes - 4 min Frequency of alcohol use: None Drug Abuse: None Occupation: WINDOWS SERVER ADMINISTRATOR Lives with: Family Family History: Reviewed & Not Pertinent Patient has suicidal ideation: No Patient has homicidal ideation: No - Past Medical History Cardiac Medical History: Reports: None Pulmonary Medical History: Reports: None EENT Medical History: Reports: None Neurological Medical History: Reports: None Endocrine Medical History: Reports: None Renal/ Medical History: Reports: Hx Ovarian Cysts Malignancy Medical History: Reports: None GI Medical History: Reports: None Musculoskeletal Medical History: Reports Hx Arthritis, Reports Hx Musculoskeletal Trauma Skin Medical History: Reports Other - Cat scratch fever Psychiatric Medical History: Reports: Hx Anxiety, Hx Depression, Hx Post Traumatic Stress Disorder Traumatic Medical History: Reports: None Past Surgical History: Reports: Hx Appendectomy, Hx Gynecologic Surgery - Uterine ablation, Hx Tubal Ligation, Other - Lymph node removed due to CAT scans fever - Immunizations Immunizations up to date: Yes Review of Systems - Review of Systems Constitutional: No symptoms reported EENT: No symptoms reported Cardiovascular: No symptoms reported Respiratory: No symptoms reported Gastrointestinal: No symptoms reported Genitourinary: No symptoms reported Female Genitourinary: No symptoms reported Musculoskeletal: Back pain, Joint pain - Right shoulder, Muscle pain, Muscle stiffness. denies: Joint swelling Skin: No symptoms reported Hematologic/Lymphatic: No symptoms reported Neurological/Psychological: No symptoms reported -: Yes All other systems reviewed and negative Physical Exam - Vital signs Vitals: Temp Pulse Resp BP Pulse Ox 98.5 F 83 16 101/66 100 05/17/18 13:40 05/17/18 13:40 05/17/18 13:40 05/17/18 13:40 05/17/18 13:40 Interpretation: Normal - General General appearance: Appears well, Alert - HEENT Head: Normocephalic, Atraumatic Eyes: Normal Pupils: PERRL - Respiratory Respiratory status: No respiratory distress Chest status: Nontender Breath sounds: Normal Chest palpation: Normal - Cardiovascular Rhythm: Regular Heart sounds: Normal auscultation Murmur: No - Abdominal Inspection: Normal Distension: No distension Bowel sounds: Normal Tenderness: Nontender Organomegaly: No organomegaly - Back Back: Normal, Tender - Lumbar, Vertebra tenderness - Lumbar. No: Deformity/step -off, CVA tenderness, Scars, Scoliosis, Wounds, Other - Extremities General upper extremity: Normal color, Normal ROM, Normal temperature General lower extremity: Normal inspection, Nontender, Normal color, Normal ROM , Normal temperature, Normal weight bearing. No: Remberto's sign Shoulder: Tender - Right shoulder. No: Abrasion, Deformity, Dislocation, Ecchymosis, Instability, Laceration, Limited ROM - Pain with range of motion to the right shoulder - Neurological Neuro grossly intact: Yes Cognition: Normal Orientation: AAOx4 Louis Coma Scale Eye Opening: Spontaneous Chappells Coma Scale Verbal: Oriented Louis Coma Scale Motor: Obeys Commands Louis Coma Scale Total: 15 Speech: Normal Motor strength normal: LUE, RUE, LLE, RLE Sensory: Normal - Psychological Associated symptoms: Normal affect, Normal mood - Skin Skin Temperature: Warm Skin Moisture: Dry Skin Color: Normal Course - Vital Signs Vital signs: Temp Pulse Resp BP Pulse Ox 98.6 F 62 16 105/49 L 100 05/17/18 16:34 05/17/18 16:34 05/17/18 16:34 05/17/18 16:34 05/17/18 16:34 - Diagnostic Test Radiology reviewed: Image reviewed, Reports reviewed Discharge - Discharge Clinical Impression: Shoulder injury Qualifiers: Encounter type: initial encounter Laterality: right Qualified Code(s): S49.91XA - Unspecified injury of right shoulder and upper arm, initial encounter Low back pain Qualifiers: Chronicity: acute Back pain laterality: bilateral Sciatica presence: without sciatica Qualified Code(s): M54.5 - Low back pain Condition: Stable Disposition: HOME, SELF-CARE Additional Instructions: Shoulder Injury You have injured your shoulder. This usually results from stretching or tearing of the tendons during trauma. Time and protection are required in order to heal properly. Many injuries are quite disabling, and should be taken seriously. Initial treatment includes cold packs and a sling to rest the shoulder. The physician has assessed the seriousness of your injury, and has outlined a treatment plan. Understand that this treatment may change, depending on how you progress. If a re-examination was recommended, it is important that you follow up as instructed. Some shoulder injuries (such as partial tear of the rotator cuff) are only suspected after you've failed to improve. Call us if there's severe pain, numbness, or loss of function. LOW BACK PAIN: Three out of every four people will have an episode of disabling back pain during their lifetime. Most commonly the pain is due to straining of the muscles and ligaments in the low back. Usual treatment includes: (1) Rest on a firm surface. Avoid lying on your stomach. (2) Ice pack the painful area. After a few days, gentle heat may be used intermittently to relax the area, or ice packs can be continued. (3) Medication may be needed -- muscle relaxers and antiinflammatory medicines are commonly used. (4) As the back improves, exercises are prescribed to strengthen the back and abdominal muscles. Your doctor will advise you on the proper care for your back at each stage in your recovery. You may be better in a few days -- or healing may take several weeks. If new symptoms of a "herniated disc" (radiation of pain, numbness, or tingling down the back of the leg or weakness in the leg) occur, you should be re-examined. Further testing may be necessary. \\ MUSCLE RELAXERS: Muscle relaxing medications are usually prescribed for acute muscle spasm or injury to the neck and back. They are often combined with antiinflammatory pain medication for increased relief. You may stop the muscle relaxer when the pain and stiffness have improved. Start the medication again if spasms recur. Muscle relaxers may cause drowsiness, especially with the first dose. Do not operate machinery or drive while under the effects of the medication. Most muscle relaxers last up to 24 hours. Do not combine the medication with alcohol. ICE PACKS: Apply ice packs frequently against the painful area. Many different schedules are recommended, such as "20 minutes on, 20 minutes off" or "one hour ice, two hours rest." If you need to work, you may need to go longer between ice treatments. You should plan to have the area ice packed AT LEAST one fourth of the time. The ice should be applied over the wrap, tape, or splint, or over a layer of cloth -- not directly against the skin. Some ice bags have a built-in cloth and can be put directly on the skin. WARM PACKS: After approximately two days, apply gentle heat (such as a heating pad or hot water bottle) for about 20 to 30 minutes about every two hours -- at least four times daily. Warmth and elevation will help you make a more rapid recovery , and will ease the pain considerably. Do not use HOT heat, and never apply heat for longer than 30 minutes. The continuous heat can invisibly damage skin and muscles -- even when no burn is seen on the surface. Damaged muscles can make you MORE sore. Exercise Program for the Shoulder Since the shoulder moves in so many directions, the joint attachment is weak. Muscles provide most of the stability to the shoulder. You must exercise your shoulder to prevent painful instability or stiffening. PASSIVE - These may be begun within a few days of the injury. While standing, lean forward, allowing the arm to hang down towards the floor. Move the arm in small circles while slowly twisting your chest towards and away from the hanging arm. Do this for one minute. ACTIVE - These may be performed when the doctor gives permission. Begin with the arms at the sides. Raise the arms forward (shoulder's width apart) until they reach shoulder level. Then slowly swing both arms back until they are aiming straight out away from each other. Then bring them forward again, and finally, lower them to your sides. Repeat 20 to 30 times. As you improve, put weights in your hands for the exercise. Start with one pound, and work up to 10 pounds. Never use more than is comfortable. Athletes may work up to 30 pounds. Ibuprofen Ibuprofen is an excellent, safe drug for pain control. In addition, it has potent antiinflammatory effects which are beneficial, especially in the treatment of injuries, arthritis, or tendonitis. It's best to take ibuprofen with food. Persons with ulcer disease or allergy to aspirin should notify their physician of this before taking ibuprofen. Take the medication exactly as prescribed. Don't take additional doses unless instructed to do so by your doctor. If you develop wheezing, shortness of breath, hives, faintness, stomach pain, vomiting, or dark black stools, return for re-evaluation at once. FOLLOW-UP CARE: If you have been referred to a physician for follow-up care, call the physician s office for an appointment as you were instructed or within the next two days. If you experience worsening or a significant change in your symptoms, notify the physician immediately or return to the Emergency Department at any time for re-evaluation. Prescriptions: Ibuprofen 600 mg PO Q6HP PRN #20 tablet PRN Reason: Methocarbamol [Robaxin 500 mg Tablet] 500 mg PO BIDP PRN #20 tablet PRN Reason: Forms: Smoking Cessation Education, Return to Work Referrals: RON LUNSFORD MD [Primary Care Provider] - Follow up as needed SHAZIA LOPEZ MD [ACTIVE STAFF] - Follow up as needed
--- NOTE | 2018-05-17 15:54 | RADIOLOGY REPORT (SQ) ---
EXAM DESCRIPTION: SHOULDER RIGHT 2 OR MORE VIEWS COMPLETED DATE/TIME: 05/17/2018 3:45 pm REASON FOR STUDY: injuried transferring patient COMPARISON: None. NUMBER OF VIEWS: Three views. TECHNIQUE: Internal rotation, external rotation, and Y view images acquired of the right shoulder. LIMITATIONS: None. FINDINGS: MINERALIZATION: Normal. BONES: No acute fracture or dislocation. No worrisome bone lesions. JOINTS: No dislocation. VISUALIZED LUNGS AND RIBS: No pneumothorax. No rib fracture. SOFT TISSUES: No radiopaque foreign body. OTHER: No other significant finding. IMPRESSION: NEGATIVE STUDY OF THE RIGHT SHOULDER. NO RADIOGRAPHIC EVIDENCE OF ACUTE INJURY. TECHNICAL DOCUMENTATION: JOB ID: [id number] [employer]- All Rights Reserved Reading location - IP/workstation name: [email or web address]
--- NOTE | 2018-05-17 15:55 | RADIOLOGY REPORT (SQ) ---
EXAM DESCRIPTION: L SPINE WHOLE COMPLETED DATE/TIME: 05/17/2018 3:45 pm REASON FOR STUDY: injuried transferring patient COMPARISON: None. NUMBER OF VIEWS: Five views including obliques. TECHNIQUE: AP, lateral, oblique, and sacral radiographic images acquired of the lumbar spine. LIMITATIONS: None. FINDINGS: MINERALIZATION: Normal. SEGMENTATION: Normal. No transitional anatomy. ALIGNMENT: Normal. VERTEBRAE: Maintained height. No fracture or worrisome bone lesion. DISCS: Preserved height. No significant osteophytes or end plate irregularity. POSTERIOR ELEMENTS: Pedicles and facets are intact. No pars defect or posterior arch defects. HARDWARE: None in the spine. PARASPINAL SOFT TISSUES: Normal. PELVIS: Intact as visualized. No fractures or worrisome bone lesions. SI joints intact. OTHER: No other significant finding. IMPRESSION: NORMAL 5 VIEW LUMBAR SPINE. TECHNICAL DOCUMENTATION: JOB ID: [id number] [employer]- All Rights Reserved Reading location - IP/workstation name: [email or web address]
[2018-05-17 16:35] VITALS: BP 105/49
== END 2018-05-17 16:35 | disposition home or self-care (01) ==
LOC: ER 13:12
DX: S49.91XA Unspecified injury of right shoulder and upper arm, initial encounter (principal); M54.5 Low back pain; M54.9 Dorsalgia, unspecified; M54.6 Pain in thoracic spine; M25.511 Pain in right shoulder; X58.XXXA Exposure to other specified factors, initial encounter; Z79.899 Other long term (current) drug therapy; F17.210 Nicotine dependence, cigarettes, uncomplicated
CPT/HCPCS: 99406; 99283; 72110; 73030; J1885; J1100

== ENCOUNTER 2018-07-29 08:32 | Emergency (ER) | payer MEDICAID, OTHER ==
[2018-07-29 09:21] LABS: APPEARANCE,URINE CLEAR; BILIRUBIN,URINE NEGATIVE (NEGATIVE); COLOR,URINE STRAW; GLUCOSE, URINE NEGATIVE (NEGATIVE); KETONES,URINE NEGATIVE (NEGATIVE); LEUKOCYTE ESTERASE,URINE NEGATIVE (NEGATIVE); NITRITE,URINE NEGATIVE (NEGATIVE); PROTEIN,URINE NEGATIVE (NEGATIVE); URINE SPECIFIC GRAVITY 1.006; UROBILINOGEN,URINE NEGATIVE mg/dL (<2.0)
--- NOTE | 2018-07-29 10:18 | ER Document Report ---
ED GI/ - General Chief Complaint: Abdominal Pain Stated Complaint: ABDOMINAL PAIN/SWELLING Time Seen by Provider: 07/29/18 09:56 Notes: 38-year-old female presents to the emergency department for a 2-week history of abdominal swelling. The patient states her abdomen has been swelling and having increased abdominal girth over the last several weeks. She started having pain about a week ago. It is persistently gotten worse she describes as dull 5/10. It is all over her abdomen. She describes a upside down C -as the pattern for the pain with the opening of the C at her mons pubis. She states she has had some nausea and some vomiting. She states she does drink alcohol from time to time. Denies illicit drug use. Denies any history of hepatitis C pancreatitis or IV drug abuse. She denies any falls or trauma. Her mother is a nurse in [place] and wanted her to come and have a HIDA scan at the hospital. TRAVEL OUTSIDE OF THE [place] IN LAST 30 DAYS: No - Related Data Allergies/Adverse Reactions: morphine Allergy (Verified 07/29/18 08:36) Past Medical History - Social History Smoking Status: Unknown if Ever Smoked Family History: Reviewed & Not Pertinent - Past Medical History Cardiac Medical History: Denies: Hx Hypercholesterolemia, Hx Hypertension, Hx Pulmonary Embolism, Hx Heart Murmur Pulmonary Medical History: Denies: Hx Asthma, Hx COPD Neurological Medical History: Denies: Hx Migraine, Hx Seizures Endocrine Medical History: Denies: Hx Diabetes Mellitus Type 1, Hx Diabetes Mellitus Type 2, Hx Hyperthyroidism, Hx Hypothyroidism Renal/ Medical History: Reports: Hx Ovarian Cysts. Denies: Hx Peritoneal Dialysis Malignancy Medical History: Denies: Hx Breast Cancer, Hx Cervical Cancer GI Medical History: Denies: Hx Gastroesophageal Reflux Disease, Hx Hiatal Hernia Musculoskeletal Medical History: Reports Hx Arthritis, Denies Hx Fibromyalgia, Reports Hx Musculoskeletal Trauma Skin Medical History: Denies Hx Eczema, Denies Hx Psoriasis Psychiatric Medical History: Reports: Hx Anxiety, Hx Depression, Hx Post Traumatic Stress Disorder Past Surgical History: Reports: Hx Appendectomy, Hx Gynecologic Surgery - Uterine ablation, Hx Tubal Ligation, Other - Lymph node removed due to CAT scans fever - Immunizations Immunizations up to date: Yes Review of Systems - Review of Systems Constitutional: Malaise. denies: Chills, Diaphoresis, Fever Respiratory: denies: Cough, Hemoptysis, Short of breath Gastrointestinal: Abdomen distended, Abdominal pain, Diarrhea, Nausea, Vomiting. denies: Blood streaked bowels, Black stools, Rectal bleeding Genitourinary: denies: Dysuria, Hematuria Neurological/Psychological: denies: Headaches -: Yes All other systems reviewed and negative Physical Exam - Vital signs Vitals: Temp Pulse Resp BP Pulse Ox 98.6 F 63 18 110/48 L 100 07/29/18 08:45 07/29/18 08:45 07/29/18 08:45 07/29/18 08:45 07/29/18 08:45 - Notes Notes: GENERAL_APPEARANCE: well_nourished, alert, cooperative, appears uncomfortable and anxious VITALS: reviewed, see vital signs table. HEAD: no_swelling\tenderness on the head. EYES: PERRL, EOMI, conjunctiva_clear. NOSE: no_nasal_discharge. MOUTH: (-)decreased moisture. THROAT: no_throat_inflammation, no_airway_obstruction. no_lymphadenopathy NECK: supple, no_neck_tenderness, (-)thyromegaly. BACK: no_back_tenderness. CHEST_WALL: no_chest_tenderness. LUNGS: no_wheezing, no_rales, no_rhonchi, (-)accessory muscle use, good air exchange bilateral. HEART: normal_rate, normal_rhythm, normal_S1, normal_S2, (-)S3, (-)S4, no_murmur, no_rub. ABDOMEN: Attention of the abdomen, soft, diffuse_abd_tenderness, (-)guarding, (-)rebound, no_organomegaly, no_abd_masses. Abreu sign negative EXTREMITIES: good pulses in all_extremities, no_swelling\tenderness in the extremities, no_edema. SKIN: warm, dry, good_color, no_rash. MENTAL_STATUS: speech_clear, oriented_X_3, anxious_affect, responds_appropriately to questions. Course - Re-evaluation Re-evalutation: 07/29/18 10:17 38-year-old female presents with increasing abdominal girth and abdominal pain. She is pretty much tender everywhere on the abdomen. Seems to follow her colon. Her mother who is a nurse in [place] was concerned about her gallbladder however I do not get focal right upper quadrant abdominal pain. Abreu sign is negative. We will get a CT of the abdomen and pelvis to further assess lipase. 07/29/18 14:43 Abdomen/Pelvis CT 07/29/18 10:12 IMPRESSION: 1. Suspect a mild mid abdominal ileus. Given decompression of proximal bowel loops and distal small bowel loops, obstruction is felt to be unlikely. Baseline KUB to allow a radiographic followup may be warranted. 2. Slight pancreatic duct prominence. No active inflammatory changes are identified. Correlate with pancreatic labs, however. Lab work is fairly reassuring. No lipase elevation is no leukocytosis no LFT elevations. CT scan shows an ileus and a large amount of stool in the proximal colon. The patient does admit to having worsening problems with constipation she initially told me she had loose stools she may be having some encopresis type symptoms. I will give the patient MiraLAX and have her do a cleanout regimen. Will prescribe her something for nausea. I explained to her the ileus may be due to the constipation versus early viral type illness. Her abdomen is mildly distended but soft and supple without rebound or guarding. I certainly do not believe she has acute cholecystitis. The appendix is surgically absent. The patient was asking for crackers and food she was hungry. Again I do not think she is obstructed. I will have her fo llow-up if she does not improve or gets worse the next 2448 hrs. she is to return to the ER. - Vital Signs Vital signs: Temp Pulse Resp BP Pulse Ox 98.6 F 63 18 110/48 L 100 07/29/18 08:45 07/29/18 08:45 07/29/18 08:45 07/29/18 08:45 07/29/18 08:45 - Laboratory Result Diagrams: 07/29/18 11:56 07/29/18 11:56 Laboratory results interpreted by me: 07/29/18 11:56 Chloride 108 H Discharge - Discharge Clinical Impression: Ileus Constipation Qualifiers: Constipation type: unspecified constipation type Qualified Code(s): K59.00 - Constipation, unspecified Condition: Good Disposition: HOME, SELF-CARE Instructions: Constipation (OM) Additional Instructions: Please use the MiraLAX 1-2 scoops in 12 ounces of water or Gatorade every hour until desired results. Use the nausea medicine Zofran while doing this Prescriptions: Ondansetron [Zofran Odt 4 mg Tablet] 1 - 2 tab PO Q4H PRN #15 tab.rapdis PRN Reason: For Nausea/Vomiting Polyethylene Glycol 3350 [Miralax] 1 cap PO DAILY #527 powder Referrals: ADRIANA FENG, TRAFFIC ENUMERATOR [Primary Care Provider] - Follow up as needed
[2018-07-29 12:19] LABS: ABSOLUTE EOSINOPHILS # (AUTO) 0.1 10^3/uL (0.0-0.6); ABSOLUTE LYMPHOCYTES (AUTO) 2.3 10^3/uL (0.5-4.7); ABSOLUTE MONOCYTES (AUTO) 0.5 10^3/uL (0.1-1.4); ABSOLUTE NEUT (AUTO) 4.4 10^3/uL (1.7-8.2); BASOPHILS % (AUTO) 0.4 % (0-2); EOSINOPHILS % (AUTO) 1.5 % (0-6); HEMATOCRIT 39.7 % (36.0-47.0); HEMOGLOBIN 13.6 g/dL (12.0-15.5); LYMPHOCYTES % (AUTO) 31.3 % (13-45); MEAN CORPUSCULAR HEMOGLOBIN 31.6 pg (27.0-33.4); MEAN CORPUSCULAR HGB CONC 34.2 g/dL (32.0-36.0); MEAN CORPUSCULAR VOLUME 92 fl (80-97); MONOCYTES % (AUTO) 7.2 % (3-13); PLATELET COUNT 268 10^3/uL (150-450); RED CELL DISTRIBUTION WIDTH 12.4 % (11.5-14.0); SEGMENTED NEUTROPHILS % (AUTO) 59.6 % (42-78); TOTAL CELLS COUNTED % (AUTO) 100 %; WHITE BLOOD COUNT 7.3 10^3/uL (4.0-10.5)
[2018-07-29] MEDS ORDERED: HYDROMORPHONE HCL INJ/PF 2 MG/ML AMPULE IV ONE ×2 (12:21→13:59)
[2018-07-29] MEDS ORDERED: ONDANSETRON HCL INJ/PF 4 MG/2 ML SDV IV ONE ×2 (12:21→14:00)
[2018-07-29 12:24] LABS: INTERNATIONAL RATION (INR) 0.84; PARTIAL THROMBOPLASTIN TIME 27.2 SEC (23.5-35.8)
[2018-07-29 12:39] LABS: ALANINE AMINOTRANSFERASE 13 U/L (9-52); ALBUMIN 4.1 g/dL (3.5-5.0); ALKALINE PHOSPHATASE 60 U/L (38-126); ANION GAP 10 (5-19); ASPARTATE AMINO TRANSFERASE 17 U/L (14-36); BILIRUBIN,DIRECT 0.1 mg/dL (0.0-0.4); BILIRUBIN,TOTAL 0.3 mg/dL (0.2-1.3); BLOOD UREA NITROGEN 11 mg/dL (7-20); CALCIUM 9.9 mg/dL (8.4-10.2); CARBON DIOXIDE 24 mmol/L (22-30); CHLORIDE 108 mmol/L (98-107); GLUCOSE 96 mg/dL (75-110); LIPASE 95.4 U/L (23-300); POTASSIUM 4.5 mmol/L (3.6-5.0); SODIUM 141.5 mmol/L (137-145); TOTAL PROTEIN 6.9 g/dL (6.3-8.2)
--- NOTE | 2018-07-29 13:02 | RADIOLOGY REPORT (SQ) ---
EXAM DESCRIPTION: CT ABD/PELVIS WITH IV ONLY COMPLETED DATE/TIME: 07/29/2018 12:47 pm REASON FOR STUDY: ABD Pain and increased girth COMPARISON: 04/09/2018. TECHNIQUE: CT scan of the abdomen and pelvis performed using helical scanning technique with dynamic intravenous contrast injection. No oral contrast. Images reviewed with lung, soft tissue, and bone windows. Reconstructed coronal and sagittal MPR images reviewed. Delayed images for evaluation of the urinary system also acquired. All images stored on PACS. All CT scanners at this facility use dose modulation, iterative reconstruction, and/or weight based d osing when appropriate to reduce radiation dose to as low as reasonably achievable (ALARA). [facility]: Dose Right [facility]: CareDose [facility]: Dose Right [facility]: Teradose 4D [facility]: Savor CONTRAST TYPE AND DOSE: contrast/concentration: Isovue 350.00 mg/ml; Total Contrast Delivered: 74.0 ml; Total Saline Delivered: 67.0 ml RENAL FUNCTION: GFR > 60. RADIATION DOSE: CT Rad equipment meets quality standard of care and radiation dose reduction techniq ues were employed. CTDIvol: 5.9 - 7.8 mGy. DLP: 730 mGy-cm.. LIMITATIONS: None. FINDINGS: LOWER CHEST: No significant findings. No nodules or infiltrates. LIVER: Normal size. No masses. No dilated ducts. SPLEEN: Normal size. No focal lesions. PANCREAS: Slightly more conspicuous pancreatic duct prominence compared to prior. Duct grossly measu res up to 3 mm. No obstructing mass or calcifications or regional inflammatory changes, however. GALLBLADDER: Relatively contracted but otherwise normal. ADRENAL GLANDS: No significant masses or asymmetry. RIGHT KIDNEY AND URETER: No solid masses. No significant calcification. No hydronephrosis or hydroure ter. LEFT KIDNEY AND URETER: No solid masses. No significant calcification. No hydronephrosis or hydrouret er. AORTA AND VESSELS: No aneurysm. No dissection. Renal arteries, SMA, celiac without stenosis. RETROPERITONEUM: No retroperitoneal adenopathy, hemorrhage or masses. BOWEL AND PERITONEAL CAVITY: Mid abdominal fluid distended loops of small bowel. No single point of transition detected. Potential ileus. No ascites or abnormal gas. Large amount of stool in the pro ximal half of the colon. APPENDIX: Surgically absent. PELVIS: Bladder distended. No pelvic mass or abnormal fluid. ABDOMINAL WALL: No masses. No hernias. BONES: No significant or acute findings. OTHER: No other significant finding. IMPRESSION: 1. Suspect a mild mid abdominal ileus. Given decompression of proximal bowel loops and distal small bowel loops, obstruction is felt to be unlikely. Baseline KUB to allow a radiographic followup may be warranted. 2. Slight pancreatic duct prominence. No active inflammatory changes are identified. Correlate with pancreatic labs, however. TECHNICAL DOCUMENTATION: JOB ID: [id number] Quality ID # [id number]: Final reports with documentation of one or more dose reduction techniques (e.g., Au tomated exposure control, adjustment of the mA and/or kV according to patient size, use of iterative reconstruction technique) 2010 [employer]- All Rights Reserved Reading location - IP/workstation name: [email or web address]
[2018-07-29 15:02] VITALS: BP 115/60
== END 2018-07-29 15:02 | disposition home or self-care (01) ==
LOC: ER 08:32
DX: K56.7 Ileus, unspecified (principal); K59.00 Constipation, unspecified; R10.9 Unspecified abdominal pain; R19.00 Intra-abdominal and pelvic swelling, mass and lump, unspecified site; R11.2 Nausea with vomiting, unspecified
CPT/HCPCS: 96376; 99284; 96374; 96375; 36415; 83690; 85025; 85610; 85730; 81025; 80053; 81001; 74177; J1170; J2405

== ENCOUNTER 2018-08-24 11:21 | Emergency (ER) | payer MEDICAID ==
[2018-08-24] MEDS ORDERED: ASPIRIN 81 MG TABLET, CHEWABLE PO ONE (11:59)
--- NOTE | 2018-08-24 12:01 | ER Document Report ---
ED Medical Screen (RME) - General Chief Complaint: Chest Pain Stated Complaint: CHEST PAIN Time Seen by Provider: 08/24/18 11:53 Primary Care Provider: ADRIANA FENG NP [Primary Care Provider] - Follow up as needed Mode of Arrival: Ambulatory Information source: Patient Notes: This is a 38-year-old female with a history of PTSD, anxiety, peripheral neuropathy who is referred over by her psychologist because of left-sided chest pain since 4 PM yesterday. Patient states that the pain started at 4 PM and was initially coming and going but since this morning has been constant since she woke up. She describes the pain is sharp and sticking but also says it is associated with a heaviness. She does report some heaviness bilateral arms. She does report shortness of breath. In triage, her respiratory rate is 18 and her oxygen saturation is 100% on room air and her lungs are clear. She does not appear in acute distress in triage. TRAVEL OUTSIDE OF THE [place] IN LAST 30 DAYS: No - Related Data Allergies/Adverse Reactions: morphine Allergy (Verified 07/29/18 08:36) Past Medical History - Past Medical History Cardiac Medical History: Denies: Hx Hypercholesterolemia, Hx Hypertension, Hx Pulmonary Embolism, Hx Heart Murmur Pulmonary Medical History: Denies: Hx Asthma, Hx COPD Neurological Medical History: Denies: Hx Migraine, Hx Seizures Endocrine Medical History: Denies: Hx Diabetes Mellitus Type 1, Hx Diabetes Mellitus Type 2, Hx Hyperthyroidism, Hx Hypothyroidism Renal/ Medical History: Reports: Hx Ovarian Cysts. Denies: Hx Peritoneal Dialysis Malignancy Medical History: Denies: Hx Breast Cancer, Hx Cervical Cancer GI Medical History: Denies: Hx Gastroesophageal Reflux Disease, Hx Hiatal Hernia Musculoskeltal Medical History: Reports Hx Arthritis, Denies Hx Fibromyalgia, Reports Hx Musculoskeletal Trauma Skin Medical History: Denies Hx Eczema, Denies Hx Psoriasis Psychiatric Medical History: Reports: Hx Anxiety, Hx Depression, Hx Post Traumatic Stress Disorder Past Surgical History: Reports: Hx Appendectomy, Hx Gynecologic Surgery - Uterine ablation, Hx Tubal Ligation, Other - Lymph node removed due to CAT scans fever - Immunizations Immunizations up to date: Yes Physical Exam - Vital signs Vitals: Temp Pulse Resp BP Pulse Ox 98.2 F 87 16 115/45 L 100 08/24/18 11:26 08/24/18 11:26 08/24/18 11:26 08/24/18 11:26 08/24/18 11:26 Course - Vital Signs Vital signs: Temp Pulse Resp BP Pulse Ox 98.2 F 87 16 115/45 L 100 08/24/18 11:26 08/24/18 11:26 08/24/18 11:26 08/24/18 11:26 08/24/18 11:26 Doctor's Discharge - Discharge Referrals: ADRIANA FENG NP [Primary Care Provider] - Follow up as needed
--- NOTE | 2018-08-24 12:32 | RADIOLOGY REPORT (SQ) ---
EXAM DESCRIPTION: CHEST SINGLE VIEW COMPLETED DATE/TIME: 08/24/2018 12:23 pm REASON FOR STUDY: cp COMPARISON: None. EXAM PARAMETERS: NUMBER OF VIEWS: One view. TECHNIQUE: Single frontal radiographic view of the chest acquired. RADIATION DOSE: NA LIMITATIONS: None. FINDINGS: LUNGS AND PLEURA: No opacities, masses or pneumothorax. No pleural effusion. MEDIASTINUM AND HILAR STRUCTURES: No masses. Contour normal. HEART AND VASCULAR STRUCTURES: Heart normal in size. Normal vasculature. BONES: No acute findings. HARDWARE: None in the chest. OTHER: No other significant finding. IMPRESSION: NO ACUTE RADIOGRAPHIC FINDING IN THE CHEST. TECHNICAL DOCUMENTATION: JOB ID: [id number] [employer]- All Rights Reserved Reading location - IP/workstation name: [email or web address]
[2018-08-24 13:01] LABS: ABSOLUTE BASOPHILS # (AUTO) 0.1 10^3/uL (0.0-0.2); ABSOLUTE EOSINOPHILS # (AUTO) 0.1 10^3/uL (0.0-0.6); ABSOLUTE LYMPHOCYTES (AUTO) 2.1 10^3/uL (0.5-4.7); ABSOLUTE MONOCYTES (AUTO) 0.6 10^3/uL (0.1-1.4); ABSOLUTE NEUT (AUTO) 5.4 10^3/uL (1.7-8.2); BASOPHILS % (AUTO) 0.7 % (0-2); EOSINOPHILS % (AUTO) 1.6 % (0-6); HEMATOCRIT 38.7 % (36.0-47.0); HEMOGLOBIN 13.2 g/dL (12.0-15.5); LYMPHOCYTES % (AUTO) 25.3 % (13-45); MEAN CORPUSCULAR HEMOGLOBIN 31.4 pg (27.0-33.4); MEAN CORPUSCULAR HGB CONC 34.2 g/dL (32.0-36.0); MEAN CORPUSCULAR VOLUME 92 fl (80-97); MONOCYTES % (AUTO) 7.7 % (3-13); PLATELET COUNT 292 10^3/uL (150-450); RED BLOOD COUNT 4.21 10^6/uL (3.72-5.28); RED CELL DISTRIBUTION WIDTH 12.3 % (11.5-14.0); SEGMENTED NEUTROPHILS % (AUTO) 64.7 % (42-78); TOTAL CELLS COUNTED % (AUTO) 100 %; WHITE BLOOD COUNT 8.3 10^3/uL (4.0-10.5)
[2018-08-24] MEDS ORDERED: ALPRAZOLAM 0.5 MG TABLET PO ONE (13:07)
[2018-08-24] MEDS ORDERED: MAG HYDROX/AL HYDROX/SIMETH SUSP 30 ML UDCUP PO ONE (13:08)
[2018-08-24] MEDS ORDERED: LIDOCAINE 2% VISCOUS SOLN 20 ML UDCUP PO ONE (13:08)
[2018-08-24] MEDS ORDERED: METOCLOPRAMIDE HCL ORAL SOLN 10 MG/10 ML UDCUP PO ONE (13:08)
--- NOTE | 2018-08-24 13:12 | ER Document Report ---
ED Cardiac - General Chief Complaint: Chest Pain Stated Complaint: CHEST PAIN Time Seen by Provider: 08/24/18 11:53 Primary Care Provider: ADRIANA FENG NP [NO LOCAL MD] - Follow up as needed Mode of Arrival: Ambulatory TRAVEL OUTSIDE OF THE [place] IN LAST 30 DAYS: No - HPI Notes: Patient is a 38-year-old female that presents to the emergency department for chief complaint of chest pain. Patient reports intermittent substernal chest pain that began at 4 PM yesterday. The pain became constant this morning when she woke up. She describes it as "I feel there is something behind my breast bone that is being inserted similar to what an IV would feel like it feels heavy and sharp". Patient does have a history of anxiety and PTSD. She was at her psychiatrist's office this morning and was describing the symptoms, psychiatry referred her to the emergency room. Patient denies any history of cardiac disease. She denies recent surgery, travel, immobilization as well as estrogen use. She denies lower extremity edema and cramping. Patient states this does feel similar to previous anxiety attacks in the past and states she is due for a Xanax now. Past Medical History: Anxiety, PTSD, neuropathy Past Surgical History: Uterine ablation, appendectomy Social History: Daily tobacco. Denies drugs and alcohol Family History: Reviewed and noncontributory for presenting illness Allergies: Reviewed, see documented allergy list. REVIEW OF SYSTEMS: CONSTITUTIONAL : No fever No chills No diaphoresis No recent illness EENT: No vision changes No congestion No sore throat CARDIOVASCULAR: chest pain No palpitations RESPIRATORY: shortness of breath No cough No difficulty breathing GASTROINTESTINAL: No abdominal pain No nausea No vomiting No diarrhea GENITOURINARY: No dysuria No hematuria No difficulty urinating MUSCULOSKELETAL: No back pain No leg pain No arm pain SKIN: No rashes No lesions LYMPHATIC: No swollen, enlarged glands. NEUROLOGICAL: No lightheadedness No headache No weakness No paresthesias PSYCHIATRIC: No anxiety No depression PHYSICAL EXAMINATION: Vital signs reviewed, nursing noted reviewed. GENERAL: Well-appearing, well-nourished and in no acute distress. HEAD: Atraumatic, normocephalic. EYES: Eyes appear normal, extraocular movements intact, sclera anicteric, conjunctiva are normal. ENT: nares patent, oropharynx clear without exudates. Moist mucous membranes. NECK: Normal range of motion, supple without lymphadenopathy LUNGS: Breath sounds clear to auscultation bilaterally and equal. No wheezes rales or rhonchi. HEART: Regular rate and rhythm without murmurs ABDOMEN: Soft, nontender, normoactive bowel sounds. No rebound, guarding, or rigidity. No masses appreciated. EXTREMITIES: Nontender, good range of motion, no pitting or edema. NEUROLOGICAL: No focal neurological deficits. Moves all extremities spontaneously Motor and sensory grossly intact on exam. PSYCH: Anxious mood SKIN: Warm, Dry, normal turgor, no rashes or lesions noted on exposed skin - Related Data Allergies/Adverse Reactions: morphine Allergy (Verified 07/29/18 08:36) Past Medical History - General Information source: Patient - Social History Smoking Status: Current Every Day Smoker Frequency of alcohol use: None Drug Abuse: None Family History: Reviewed & Not Pertinent Patient has suicidal ideation: No Patient has homicidal ideation: No - Past Medical History Cardiac Medical History: Denies: Hx Hypercholesterolemia, Hx Hypertension, Hx Pulmonary Embolism, Hx Heart Murmur Pulmonary Medical History: Denies: Hx Asthma, Hx COPD Neurological Medical History: Denies: Hx Migraine, Hx Seizures Endocrine Medical History: Denies: Hx Diabetes Mellitus Type 1, Hx Diabetes Mellitus Type 2, Hx Hyperthyroidism, Hx Hypothyroidism Renal/ Medical History: Reports: Hx Ovarian Cysts. Denies: Hx Peritoneal Dialysis Malignancy Medical History: Denies: Hx Breast Cancer, Hx Cervical Cancer GI Medical History: Denies: Hx Gastroesophageal Reflux Disease, Hx Hiatal Hernia Musculoskeletal Medical History: Reports Hx Arthritis, Denies Hx Fibromyalgia, Reports Hx Musculoskeletal Trauma Skin Medical History: Denies Hx Eczema, Denies Hx Psoriasis Psychiatric Medical History: Reports: Hx Anxiety, Hx Depression, Hx Post Trauma tic Stress Disorder Past Surgical History: Reports: Hx Appendectomy, Hx Gynecologic Surgery - Uterine ablation, Hx Tubal Ligation, Other - Lymph node removed due to CAT scans fever - Immunizations Immunizations up to date: Yes Physical Exam - Vital signs Vitals: Temp Pulse Resp BP Pulse Ox 98.2 F 87 16 115/45 L 100 08/24/18 11:26 08/24/18 11:26 08/24/18 11:26 08/24/18 11:26 08/24/18 11:26 Course - Re-evaluation Re-evalutation: 08/24/18 13:11 Vitals reviewed. Nursing notes reviewed. Patient is anxious and appears uncomfortable. She is asking for a dose of Xanax which is a home medication. She was given the 1 mg dose. She did receive 324 mg of chewable aspirin. P atient's EKG shows no STEMI. She will also be given GI cocktail for symptomatic management. 08/24/18 14:46 Patient reevaluated. She reports minimal improvement after the GI cocktail. Her workup today is unremarkable. Patient's pain is been constant for hours and her troponin is negative, ACS is not currently suspected. She is PERC criteria negative and I do not clinically suspect PE. Laboratory 08/24/18 08/24/18 08/24/18 12:49 12:49 12:49 WBC 8.3 RBC 4.21 Hgb 13.2 Hct 38.7 MCV 92 MCH 31.4 MCHC 34.2 RDW 12.3 Plt Count 292 Seg Neutrophils % 64.7 Lymphocytes % 25.3 Monocytes % 7.7 Eosinophils % 1.6 Basophils % 0.7 Absolute Neutrophils 5.4 Absolute Lymphocytes 2.1 Absolute Monocytes 0.6 Absolute Eosinophils 0.1 Absolute Basophils 0.1 Sodium 138.9 Potassium 3.7 Chloride 109 H Carbon Dioxide 24 Anion Gap 6 BUN 13 Creatinine 0.46 L Est GFR ( Amer) > 60 Est GFR (Non-Af Amer) > 60 Glucose 102 Calcium 9.2 Total Bilirubin 0.3 Direct Bilirubin 0.2 Neonat Total Bilirubin Not Reportable Neonat Direct Bilirubin Not Reportable Neonat Indirect Bili Not Reportable AST 23 ALT 16 Alkaline Phosphatase 52 Creatine Kinase 32 CK-MB (CK-2) 0.25 Troponin I < 0.012 Total Protein 7.0 Albumin 4.4 Chest X-Ray 08/24/18 11:59 IMPRESSION: NO ACUTE RADIOGRAPHIC FINDING IN THE CHEST. She now tells me that she has been taking ibuprofen daily for the last 2-3 weeks. It is possible that her symptoms are caused by gastric ulcer. She has no signs of active bleeding currently in a stable hemoglobin. She has an a ppointment with her primary care doctor at 9 tomorrow morning which she will keep for follow-up. She will return to the emergency room for any new or worsening symptoms. She is stable at discharge. - Vital Signs Vital signs: Temp Pulse Resp BP Pulse Ox 98.2 F 87 14 99/62 L 100 08/24/18 11:26 08/24/18 11:26 08/24/18 14:01 08/24/18 14:01 08/24/18 14:01 - Laboratory Result Diagrams: 08/24/18 12:49 08/24/18 12:49 Laboratory results interpreted by me: 08/24/18 12:49 Chloride 109 H Creatinine 0.46 L - EKG Interpretation by Me Additional EKG results interpreted by me: 08/24/18 13:10 Interpreted by myself [id number]: Normal sinus rhythm, rate 80, normal axis, no ectopy, nonspecific T wave inversion V2 V3, no STEMI Discharge - Discharge Clinical Impression: Chest pain Qualifiers: Chest pain type: unspecified Qualified Code(s): R07.9 - Chest pain, unspecified Condition: Stable Disposition: HOME, SELF-CARE Instructions: Chest Pain of Unclear Cause ([facility]), Reflux Disease (GERD) ([facility]) Additional Instructions: Please return to the emergency department if you have any worsening, or concern of your symptoms. Please return to the emergency department if you develop chest pain, difficulty breathing, severe abdominal pain, or ongoing vomiting. If prescribed, take all medications as directed. If you have any questions or concerns do not hesitate to return the emergency department for evaluation. Take 2 of your Nexium for a total of 40 mg daily Keep your appointment with your primary care doctor for tomorrow morning Stop taking ibuprofen Avoid spicy food, fried food, citrus food, caffeine, tobacco, alcohol, chocolate and peppermint as these will aggravate your stomach lining Referrals: ADRIANA FENG NP [NO LOCAL MD] - Follow up tomorrow
[2018-08-24 13:34] LABS: CREATINE KINASE MB 0.25 ng/mL (<4.55)
[2018-08-24 13:41] LABS: TROPONIN I < 0.012 ng/mL
[2018-08-24 14:09] LABS: ALANINE AMINOTRANSFERASE 16 U/L (9-52); ALBUMIN 4.4 g/dL (3.5-5.0); ALKALINE PHOSPHATASE 52 U/L (38-126); ANION GAP 6 (5-19); ASPARTATE AMINO TRANSFERASE 23 U/L (14-36); BILIRUBIN,DIRECT 0.2 mg/dL (0.0-0.4); BILIRUBIN,TOTAL 0.3 mg/dL (0.2-1.3); BLOOD UREA NITROGEN 13 mg/dL (7-20); CALCIUM 9.2 mg/dL (8.4-10.2); CARBON DIOXIDE 24 mmol/L (22-30); CHLORIDE 109 mmol/L (98-107); CREATINE KINASE 32 U/L (30-135); GLUCOSE 102 mg/dL (75-110); POTASSIUM 3.7 mmol/L (3.6-5.0); SODIUM 138.9 mmol/L (137-145)
[2018-08-24] MEDS ORDERED: HYDROMORPHONE HCL INJ/PF 2 MG/ML AMPULE IV ONE (14:45)
[2018-08-24 16:23] VITALS: BP 106/66
--- NOTE | 2018-08-24 21:05 | EKG REPORT ---
SEVERITY:- BORDERLINE ECG - SINUS RHYTHM BORDERLINE T ABNORMALITIES, ANTERIOR LEADS : Confirmed by: Mimi Ortez MD 24-Aug-2018 21:05:10
== END 2018-08-24 16:23 | disposition home or self-care (01) ==
LOC: ER 11:21
DX: R07.9 Chest pain, unspecified (principal); Z98.51 Tubal ligation status; F17.200 Nicotine dependence, unspecified, uncomplicated; Z88.6 Allergy status to analgesic agent
CPT/HCPCS: 93005; 99285; 96374; 36415; 82553; 82550; 85025; 80053; 84484; 71045; 93010; J3490 ×4; J1170

== ENCOUNTER → 2018-09-21 | Outpatient (CLI) | payer MEDICAID ==
--- NOTE | 2018-09-21 16:56 | RADIOLOGY REPORT (SQ) ---
EXAM DESCRIPTION: LUMBAR SPINE COMPLETE COMPLETED DATE/TIME: 09/21/2018 4:23 pm REASON FOR STUDY: PAIN IN UNSPECIFIED PAIN; LOW BACK PAIN M25.519 PAIN IN UNSPECIFIED SHOULDER M54. 5 LOW BACK PAIN G89.4 CHRONIC PAIN SYNDROME COMPARISON: Lumbar spine five views 05/17/2018 CT abdomen pelvis 07/29/2018 NUMBER OF VIEWS: Five views including obliques. TECHNIQUE: AP, lateral, oblique, and sacral radiographic images acquired of the lumbar spine. LIMITATIONS: None. FINDINGS: MINERALIZATION: Normal. SEGMENTATION: Normal. No transitional anatomy. ALIGNMENT: Normal. VERTEBRAE: Maintained height. No fracture or worrisome bone lesion. DISCS: Preserved height. No significant osteophytes or end plate irregularity. POSTERIOR ELEMENTS: Pedicles and facets are intact. No pars defect or posterior arch defects. HARDWARE: None in the spine. PARASPINAL SOFT TISSUES: Normal. PELVIS: Intact as visualized. No fractures or worrisome bone lesions. SI joints intact. OTHER: No other significant finding. IMPRESSION: NORMAL 5 VIEW LUMBAR SPINE. TECHNICAL DOCUMENTATION: JOB ID: [id number] [employer]- All Rights Reserved Reading location - IP/workstation name: [email or web address]
--- NOTE | 2018-09-21 16:57 | RADIOLOGY REPORT (SQ) ---
EXAM DESCRIPTION: SACRUM AND COCCYX COMPLETED DATE/TIME: 09/21/2018 4:23 pm REASON FOR STUDY: PAIN IN UNSPECIFIED PAIN; LOW BACK PAIN M25.519 PAIN IN UNSPECIFIED SHOULDER M54. 5 LOW BACK PAIN G89.4 CHRONIC PAIN SYNDROME COMPARISON: None. NUMBER OF VIEWS: Three views. TECHNIQUE: AP, lateral, and tilt views of the sacrum and coccyx. LIMITATIONS: None. FINDINGS: MINERALIZATION: Normal. BONES: No acute fracture or dislocation. No worrisome bone lesions. SOFT TISSUES: No soft tissue swelling. No foreign body. OTHER: No other significant finding. IMPRESSION: NEGATIVE STUDY OF THE SACRUM AND COCCYX. TECHNICAL DOCUMENTATION: JOB ID: [id number] [employer]- All Rights Reserved Reading location - IP/workstation name: [email or web address]
--- NOTE | 2018-09-21 16:57 | RADIOLOGY REPORT (SQ) ---
EXAM DESCRIPTION: SHOULDER RIGHT 2 OR MORE VIEWS COMPLETED DATE/TIME: 09/21/2018 4:23 pm REASON FOR STUDY: PAIN IN UNSPECIFIED PAIN; LOW BACK PAIN M25.519 PAIN IN UNSPECIFIED SHOULDER M54. 5 LOW BACK PAIN G89.4 CHRONIC PAIN SYNDROME COMPARISON: 05/17/2018 NUMBER OF VIEWS: Three views. TECHNIQUE: Internal rotation, external rotation, and Y view images acquired of the right shoulder. LIMITATIONS: None. FINDINGS: MINERALIZATION: Normal. BONES: No acute fracture or dislocation. No worrisome bone lesions. JOINTS: No glenohumeral dislocation. No acromioclavicular joint widening VISUALIZED LUNGS AND RIBS: No pneumothorax. No rib fracture. SOFT TISSUES: No radiopaque foreign body. OTHER: No other significant finding. IMPRESSION: NEGATIVE STUDY OF THE RIGHT SHOULDER. NO RADIOGRAPHIC EVIDENCE OF ACUTE INJURY. TECHNICAL DOCUMENTATION: JOB ID: [id number] [email or web address]- All Rights Reserved Reading location - IP/workstation name: [email or web address]
== END ==
LOC: OD 15:49
PROVIDERS: ATTEND Family Medicine Geriatric Medicine
DX: M54.5 Low back pain (principal); M25.511 Pain in right shoulder; G89.4 Chronic pain syndrome
CPT/HCPCS: 72110; 72220

== ENCOUNTER 2018-10-04 18:05 | Emergency (ER) | payer MEDICAID ==
[2018-10-04] MEDS ORDERED: KETOROLAC TROMETHAMINE 60 MG/2 ML SDV IM ONE (20:14)
[2018-10-04 21:05] LABS: A TYPE INFLUENZA AG NEGATIVE (NEGATIVE); B INFLUENZA AG NEGATIVE (NEGATIVE)
--- NOTE | 2018-10-04 21:11 | ER Document Report ---
HPI - HPI Time Seen by Provider: 10/04/18 19:55 Pain Level: 5 Notes: Patient is an otherwise healthy 38-year-old female who presents to the emergency department with complaints of fever, cough, congestion and body aches that started 2 days ago. Patient denies any significant past medical history. Denies any nausea, vomiting or diarrhea. Reports all immunizations are up-to-date. She states that her had similar symptoms a few days prior to her starting the symptoms. - CONSTITUTIONAL Constitutional: REPORTS: Fever - 101 at home, Chills - EENT EENT: DENIES: Sore Throat - NEURO Neurology: REPORTS: Headache - CARDIOVASCULAR Cardiovascular: DENIES: Chest pain - RESPIRATORY Respiratory: REPORTS: Coughing - GASTROINTESTINAL Gastrointestinal: REPORTS: Abdominal Pain - REPRODUCTIVE Reproductive: DENIES: : Past Medical History - General Information source: Patient - Social History Smoking Status: Current Every Day Smoker Chew tobacco use (# tins/day): No Frequency of alcohol use: None Drug Abuse: None Family History: Reviewed & Not Pertinent Patient has suicidal ideation: No Patient has homicidal ideation: No - Past Medical History Cardiac Medical History: Denies: Hx Hypercholesterolemia, Hx Hypertension, Hx Pulmonary Embolism, Hx Heart Murmur Pulmonary Medical History: Denies: Hx Asthma, Hx COPD Neurological Medical History: Denies: Hx Migraine, Hx Seizures Endocrine Medical History: Denies: Hx Diabetes Mellitus Type 1, Hx Diabetes Mellitus Type 2, Hx Hyperthyroidism, Hx Hypothyroidism Renal/ Medical History: Reports: Hx Ovarian Cysts. Denies: Hx Peritoneal D ialysis Malignancy Medical History: Denies: Hx Breast Cancer, Hx Cervical Cancer GI Medical History: Denies: Hx Gastroesophageal Reflux Disease, Hx Hiatal Hernia Musculoskeletal Medical History: Reports Hx Arthritis, Denies Hx Fibromyalgia, Reports Hx Musculoskeletal Trauma Skin Medical History: Denies Hx Eczema, Denies Hx Psoriasis Psychiatric Medical History: Reports: Hx Anxiety, Hx Depression - anxiety, Hx Post Traumatic Stress Disorder Past Surgical History: Reports: Hx Appendectomy, Hx Gynecologic Surgery - Uterine ablation, Hx Tubal Ligation, Other - Lymph node removed due to CAT scans fever - Immunizations Immunizations up to date: Yes Vertical Provider Document - CONSTITUTIONAL Notes: PHYSICAL EXAMINATION: GENERAL: Well-appearing, well-nourished and in no acute distress. HEAD: Atraumatic, normocephalic. EYES: Pupils equal round and reactive to light, extraocular movements intact, conjunctiva are normal. ENT: Nares patent, oropharynx clear without exudates. Moist mucous membranes. NECK: Normal range of motion, supple without lymphadenopathy LUNGS: Breath sounds clear to auscultation bilaterally and equal. No wheezes rales or rhonchi. HEART: Regular rate and rhythm without murmurs ABDOMEN: Soft, nontender, nondistended abdomen. No guarding, no rebound. No masses appreciated. Female : deferred Musculoskeletal: Normal range of motion, no pitting or edema. No cyanosis. NEUROLOGICAL: Cranial nerves grossly intact. Normal speech, normal gait. Normal sensory, motor exams PSYCH: Normal mood, normal affect. SKIN: Warm, Dry, normal turgor, no rashes or lesions noted. - INFECTION CONTROL TRAVEL OUTSIDE OF THE [place] IN LAST 30 DAYS: No Course - Re-evaluation Re-evalutation: Influenza testing is negative. Patient's physical examination and history of present illness are most likely consistent with flulike illness. This was discussed with the patient. ED return precautions were also discussed. Patient's vital signs are within normal limits at time of discharge. - Vital Signs Vital signs: Temp Pulse Resp BP Pulse Ox 98 F 95 16 101/63 100 10/04/18 18:16 10/04/18 18:16 10/04/18 18:16 10/04/18 18:16 10/04/18 18:16 Discharge - Discharge Clinical Impression: Flu-like symptoms Condition: Stable Disposition: HOME, SELF-CARE Additional Instructions: Influenza-like illness What are conditions that should receive medical attention? The development of difficulty breathing. Lip color changes to blue or purple. Persistent vomiting and unable to keep liquids down with signs of dehydration such as: dizziness when standing, unable to urinate, or if child/ is crying no tears are noticed. Is less responsive than normal or becomes confused. How do I decrease the spread in my home? Taking care of the sick patient at home: Keep the sick person in a room separate from the common areas of the house. Keep the "sickroom" door closed. If the person with the flu needs to leave the home, they should cover their nose/mouth when coughing or sneezing and wear a disposable (surgical) mask if available. These masks may be available at your local pharmacy, medical supply and hardware store. If the sick person is in common areas of the house, have them wear a surgical mask. If possible, have the sick person use a separate bathroom that should be cleaned daily with a household disinfectant. If you are the caregiver: Avoid being face to face with the sick adult person as much as possible. Try to stay at least 6 feet away and wear a disposable surgical mask when possible. When holding small children who are sick, place their chin on your shoulder so that they will not cough in your face. Wash your hands after you touch the sick person or handle their tissues and laundry. Wear a mask if you leave home, as you may be infected from taking care of someone and not know it yet. Watch yourself and others in the home for flu symptoms and contact your doctor if symptoms occur. NOTE: Antiviral medication used to reduce the symptoms of the flu works only if taken within 48 hours, and best within 24 hours of symptom onset. Household Cleaning, laundry and waste disposal: Tissues and other disposable items used by the sick person should be thrown away in the trash. Wash your hands after touching these used items. No special waste disposal is required. Keep surfaces (especially bedside tables, bathroom surfaces, and toys for children) clean by wiping them down with a safe household disinfectant according to the directions on the product label. Per CDC advice, most people will not receive testing to confirm flu. Also based on the person's health history and onset of symptoms, not all patients will receive prescriptions for antiviral medications. If you have questions related to this, please ask your healthcare provider. For more information, you can call the Centers for Disease Control and Prevention (CDC) Hotline at 3-959-PFGImpressPages This line is available in Spanish and Albanian, 24 hours a day, 7 days a week. Or www.SlideMail or www.cdc.gov Flu-Like Illness Home Instructions: The influenza virus infection can cause a wide rage of symptoms, including: Fever, cough, sore throat, body aches, headaches, chills, fatigue, with some patients reporting diarrhea and vomiting Like seasonal influenza A, H1N1 ("swine flu")in humans can vary in severity from mild to severe Severe illness with pneumonia, respiratory failure and even is possible Certain groups might be more likely to develop a severe illness from H1N1 infection. Sometimes bacterial infections may occur at the same time as or after infection with influenza viruses and lead to pneumonias, ear infections, or sinus infections. How Flu Spreads The main way that influenza viruses spread is through respiratory droplets of coughs and sneezes. This can happen when someone with the infection coughs or sneezes and the particles fly through the air and land on other people and surfaces. If the person covers their mouth and nose with their hand but does not wash their hands immediately, then these germs are passed onto the next object that they touch. People with Influenza A or suspected H1N1 (swine flu) who are cared for at home should: Check with their doctor about any special care that they might need if they are or have a health condition such as diabetes, heart disease, asthma or emphysema. Also, limit caregiver to one (if possible). women or those with chronic health conditions should not take care of the flu patient unless necessary. Check with their doctor about whether or not medications are needed that may lessen the symptoms of the flu. Stay at home until 24 hours fever free without the use of fever reducing medication. Get plenty of rest and avoid other healthy people in your home. Drink plenty of clear liquids to keep from getting dehydrated. Take medications like Tylenol (Acetaminophen), Advil/Motrin/Nuprin (Ibuprofen) or Aleve (Naproxen) for fevers and aches. All children under the age of 18 years of age should not take aspirin or products containing aspirin (e.g. Pepto Bismol), as this can cause a rare serious illness called Kana Syndrome. Over the counter medications for flu and colds may help, but it is very important to follow the package directions. Remember that the medicine may help the symptoms, but it will not help prevent others from getting sick if they are around you. Cover coughs and sneezes using your bent arm. Clean hands with soap and water or an alcohol-based hand rub often, especially after using tissues to cough or sneeze. Encourage hand washing frequently for all people living in the home! The sick person should not have visitors other than caregivers. Encourage concerned loved ones to call instead of visit. Avoid close contact with others-do not go to work or school while sick. Push fluids, take Tylenol or Motrin for pain, body aches and fever. Try to stay away from others. Hand hygiene is very important for you have the symptoms. Forms: Return to Work Referrals: CJ SANTOYO MD [Primary Care Provider] - Follow up as needed
[2018-10-04 21:36] VITALS: BP 102/56
== END 2018-10-04 21:36 | disposition home or self-care (01) ==
LOC: ER 18:05
DX: R50.9 Fever, unspecified (principal); R05 Cough; R10.9 Unspecified abdominal pain; R51 Headache; F17.200 Nicotine dependence, unspecified, uncomplicated; Z90.49 Acquired absence of other specified parts of digestive tract
CPT/HCPCS: 99283; 96372; 87804; J1885

== ENCOUNTER 2018-11-22 19:27 | Emergency (ER) | payer MEDICAID ==
[2018-11-22 19:48] VITALS: BP 110/63
== END 2018-11-22 23:28 | disposition left against medical advice (07) ==
LOC: ER 19:27
DX: Z53.21 Procedure and treatment not carried out due to patient leaving prior to being seen by health care provider (principal)

== ENCOUNTER 2018-11-23 10:55 | Emergency (ER) | payer MEDICAID ==
--- NOTE | 2018-11-23 11:54 | ER Document Report ---
ED Medical Screen (RME) - General Chief Complaint: Depression Stated Complaint: GENERALIZED PAIN Time Seen by Provider: 11/23/18 11:47 Primary Care Provider: CJ SANTOYO MD [Primary Care Provider] - Follow up as needed Notes: Patient is a 30-year-old female presents to the emergency department for generalized complaints. Patient states she has been depressed but is denying any homicidal or suicidal ideations. States she has had recent hair loss, feels as though she is always cold, states she sleeps all the time. LUNGS: Clear to auscultation bilaterally, no wheezes, rales, or rhonchi. No respiratory distress. PSYCH: flat affect, depressed mood. SKIN: Warm, dry, normal turgor. No rashes or lesions noted. I have greeted and performed a rapid initial assessment of this patient. A comprehensive ED assessment and evaluation of the patient, analysis of test results and completion of the medical decision making process will be conducted by additional ED providers. TRAVEL OUTSIDE OF THE [place] IN LAST 30 DAYS: No - Related Data Allergies/Adverse Reactions: morphine Allergy (Verified 11/23/18 11:37) Past Medical History - Social History Frequency of alcohol use: None Drug Abuse: None - Past Medical History Cardiac Medical History: Denies: Hx Hypercholesterolemia, Hx Hypertension, Hx Pulmonary Embolism, Hx Heart Murmur Pulmonary Medical History: Denies: Hx Asthma, Hx COPD Neurological Medical History: Denies: Hx Migraine, Hx Seizures Endocrine Medical History: Denies: Hx Diabetes Mellitus Type 1, Hx Diabetes Mellitus Type 2, Hx Hyperthyroidism, Hx Hypothyroidism Renal/ Medical History: Reports: Hx Ovarian Cysts. Denies: Hx Peritoneal Dialysis Malignancy Medical History: Denies: Hx Breast Cancer, Hx Cervical Cancer GI Medical History: Denies: Hx Gastroesophageal Reflux Disease, Hx Hiatal Hernia Musculoskeltal Medical History: Reports Hx Arthritis, Denies Hx Fibromyalgia, Reports Hx Musculoskeletal Trauma Skin Medical History: Denies Hx Eczema, Denies Hx Psoriasis Psychiatric Medical History: Reports: Hx Anxiety, Hx Depression - anxiety, Hx Post Traumatic Stress Disorder Past Surgical History: Reports: Hx Appendectomy, Hx Gynecologic Surgery - Uterine ablation, Hx Tubal Ligation, Other - Lymph node removed due to CAT scans fever - Immunizations Immunizations up to date: Yes Physical Exam - Vital signs Vitals: Temp Pulse Resp BP Pulse Ox 97.9 F 73 16 108/44 L 99 11/23/18 11:00 11/23/18 11:00 11/23/18 11:00 11/23/18 11:00 11/23/18 11:00 Course - Vital Signs Vital signs: Temp Pulse Resp BP Pulse Ox 97.9 F 73 16 108/44 L 99 11/23/18 11:00 11/23/18 11:00 11/23/18 11:00 11/23/18 11:00 11/23/18 11:00 Doctor's Discharge - Discharge Referrals: CJ SANTOYO MD [Primary Care Provider] - Follow up as needed
[2018-11-23] MEDS ORDERED: ACETAMINOPHEN 325 MG TABLET PO ONE (12:13)
[2018-11-23 12:34] LABS: APPEARANCE,URINE CLEAR; BILIRUBIN,URINE NEGATIVE (NEGATIVE); COLOR,URINE STRAW; GLUCOSE, URINE NEGATIVE (NEGATIVE); KETONES,URINE NEGATIVE (NEGATIVE); LEUKOCYTE ESTERASE,URINE NEGATIVE (NEGATIVE); NITRITE,URINE NEGATIVE (NEGATIVE); PROTEIN,URINE NEGATIVE (NEGATIVE); URINE SPECIFIC GRAVITY 1.008; UROBILINOGEN,URINE NEGATIVE mg/dL (<2.0)
[2018-11-23 12:46] LABS: ABSOLUTE BASOPHILS # (AUTO) 0.1 10^3/uL (0.0-0.2); ABSOLUTE EOSINOPHILS # (AUTO) 0.2 10^3/uL (0.0-0.6); ABSOLUTE LYMPHOCYTES (AUTO) 1.7 10^3/uL (0.5-4.7); ABSOLUTE MONOCYTES (AUTO) 0.6 10^3/uL (0.1-1.4); ABSOLUTE NEUT (AUTO) 6.7 10^3/uL (1.7-8.2); BASOPHILS % (AUTO) 0.6 % (0-2); EOSINOPHILS % (AUTO) 1.8 % (0-6); HEMATOCRIT 40.1 % (36.0-47.0); HEMOGLOBIN 13.7 g/dL (12.0-15.5); LYMPHOCYTES % (AUTO) 18.2 % (13-45); MEAN CORPUSCULAR HEMOGLOBIN 32.2 pg (27.0-33.4); MEAN CORPUSCULAR HGB CONC 34.3 g/dL (32.0-36.0); MEAN CORPUSCULAR VOLUME 94 fl (80-97); MONOCYTES % (AUTO) 6.4 % (3-13); PLATELET COUNT 292 10^3/uL (150-450); RED BLOOD COUNT 4.27 10^6/uL (3.72-5.28); RED CELL DISTRIBUTION WIDTH 13.4 % (11.5-14.0); TOTAL CELLS COUNTED % (AUTO) 100 %; WHITE BLOOD COUNT 9.1 10^3/uL (4.0-10.5)
[2018-11-23 13:15] LABS: ALANINE AMINOTRANSFERASE 14 U/L (9-52); ALBUMIN 4.4 g/dL (3.5-5.0); ALKALINE PHOSPHATASE 57 U/L (38-126); ANION GAP 8 (5-19); ASPARTATE AMINO TRANSFERASE 15 U/L (14-36); BILIRUBIN,DIRECT 0.2 mg/dL (0.0-0.4); BILIRUBIN,TOTAL 0.4 mg/dL (0.2-1.3); BLOOD UREA NITROGEN 15 mg/dL (7-20); CALCIUM 9.8 mg/dL (8.4-10.2); CARBON DIOXIDE 23 mmol/L (22-30); CHLORIDE 108 mmol/L (98-107); GLUCOSE 109 mg/dL (75-110); POTASSIUM 4.7 mmol/L (3.6-5.0); SODIUM 139.4 mmol/L (137-145); TOTAL PROTEIN 7.4 g/dL (6.3-8.2)
[2018-11-23 13:30] LABS: FREE T3 3.55 pg/mL (2.77-5.27); FREE T4 (FREE THYROXINE) 0.92 ng/dL (0.78-2.19)
[2018-11-23 13:44] LABS: THYROID STIMULATING HORMONE 0.79 uIU/mL (0.47-4.68)
[2018-11-23] MEDS ORDERED: PROCHLORPERAZINE EDISYLATE INJ 10 MG/2 ML VIAL IM ONE (16:04)
[2018-11-23] MEDS ORDERED: DIPHENHYDRAMINE HCL 50 MG/ML VIAL IM ONE (16:04)
[2018-11-23] MEDS ORDERED: ONDANSETRON 4 MG TAB.RAPDIS PO ONE (16:04)
[2018-11-23] MEDS ORDERED: KETOROLAC TROMETHAMINE 60 MG/2 ML SDV IM ONE (16:04)
[2018-11-23 16:50] VITALS: BP 104/62
--- NOTE | 2018-11-23 23:44 | ER Document Report ---
Entered by CONSTANTIN KEE SCRIBE 11/23/18 6800 Acting as scribe for:DARION BLANC DO ED General - General Chief Complaint: Depression Stated Complaint: GENERALIZED PAIN Time Seen by Provider: 11/23/18 11:47 Primary Care Provider: CJ SANTOYO MD [COMMUNITY BASED STAFF] - Follow up as needed Mode of Arrival: Ambulatory Information source: Patient Notes: Patient is a 38 year old female with depression presents to the emergency department complaining of increased fatigue and headache onset 2 weeks ago. Patient states she has a history of headaches for which she used to receive Imitrex injections and states her current headache feels similar. She states the headache is located at the top of her head which radiates frontally and to the temples. Patient denies any relieving or alleviating factors. She also complains of some photosensitivity, blurry vision, rhinorrhea and vomiting. She denies any sore throat or earaches. Patient also complains of increased depression further stating "I feel like a zombie". Patient states she is very fatigued and is frequently sleeping. She states she was prescribed Cymbalta 2 months ago which she has been without for 2 weeks due to it being stolen. She also complains of weight gain. Denies suicidal or homicidal ideation. TRAVEL OUTSIDE OF THE [place] IN LAST 30 DAYS: No - Related Data Allergies/Adverse Reactions: morphine Allergy (Verified 11/23/18 11:37) Past Medical History - General Information source: Patient - Social History Smoking Status: Current Every Day Smoker Frequency of alcohol use: None Drug Abuse: None Family History: Reviewed & Not Pertinent Patient has suicidal ideation: No Patient has homicidal ideation: No Renal/ Medical History: Reports: Hx Ovarian Cysts Musculoskeletal Medical History: Reports Hx Arthritis, Reports Hx Musculoskeletal Trauma Psychiatric Medical History: Reports: Hx Anxiety, Hx Depression - anxiety, Hx Post Traumatic Stress Disorder Past Surgical History: Reports: Hx Appendectomy, Hx Gynecologic Surgery - Uterine ablation, Hx Tubal Ligation, Other - Lymph node removed due to CAT scans fever - Immunizations Immunizations up to date: Yes Review of Systems - Review of Systems Constitutional: See HPI, Weight gain EENT: See HPI, Blurred vision, Nose congestion, Nose discharge Cardiovascular: No symptoms reported Respiratory: No symptoms reported Gastrointestinal: No symptoms reported Genitourinary: No symptoms reported Female Genitourinary: No symptoms reported Musculoskeletal: No symptoms reported Skin: No symptoms reported Hematologic/Lymphatic: No symptoms reported Neurological/Psychological: See HPI, Depression, Headaches -: Yes All other systems reviewed and negative Physical Exam - Vital signs Vitals: Temp Pulse Resp BP Pulse Ox 97.9 F 73 16 108/44 L 99 11/23/18 11:00 11/23/18 11:00 11/23/18 11:00 11/23/18 11:00 11/23/18 11:00 - Notes Notes: GENERAL: Alert, interacts well. No acute distress. HEAD: Normocephalic, atraumatic. EYES: Pupils equal, round, and reactive to light. Extraocular movements intact. ENT: Oral mucosa moist, tongue midline. NECK: Full range of motion. Supple. Trachea midline. LUNGS: Clear to auscultation bilaterally, no wheezes, rales, or rhonchi. No respiratory distress. HEART: Regular rate and rhythm. No murmurs, gallops, or rubs. ABDOMEN: Soft, non-tender. Non-distended. Bowel sounds present in all 4 quadrants. No guarding, rigidity, or rebound. EXTREMITIES: Moves all 4 extremities spontaneously. No edema, radial and dorsalis pedis pulses 2/4 bilaterally. No cyanosis. NEUROLOGICAL: Alert and oriented x3. Normal speech. PSYCH: Slightly flat affect. Appears depressed and fatigued. SKIN: Warm, dry, normal turgor. No rashes or lesions noted. Course - Re-evaluation Re-evalutation: 11/23/18 16:23 CBC unremarkable, CMP unremarkable, thyroid functions normal, urinalysis shows small blood, 0 RBCs, 1+ bacteria, no symptoms of urinary tract infection, test is negative. Physical examination is unremarkable. Patient will be treated with Toradol, Compazine and Benadryl for pain. No evidence of thyroid malfunction. Suspect many of her symptoms are related to ongoing depression. Recommended taking her depression medications as directed, not missing 2 weeks worth intermittently and following up with her treating provider for her depression to discuss other possible medications and medications that may help with her migraines as well as depression. No suspicion for brain tumor, meningitis or intracranial hemorrhage. No neurologic deficits. Discharged home. - Vital Signs Vital signs: Temp Pulse Resp BP Pulse Ox 97.8 F 61 16 104/62 99 11/23/18 16:50 04/25/19 16:50 11/23/18 16:50 11/23/18 16:50 11/23/18 16:50 - Laboratory Result Diagrams: 11/23/18 12:28 11/23/18 12:28 Laboratory results interpreted by me: 11/23/18 11/23/18 11:25 12:28 Chloride 108 H Creatinine 0.50 L Urine Blood SMALL H Discharge - Discharge Clinical Impression: Migraine Qualifiers: Migraine type: without aura Status migrainosus presence: with status migrainosus Intractability: intractable Qualified Code(s): G43.011 - Migraine without aura, intractable, with status migrainosus Fatigue Qualifiers: Fatigue type: chronic, unspecified Qualified Code(s): R53.82 - Chronic fatigue, unspecified Depression Qualifiers: Depression Type: unspecified Qualified Code(s): F32.9 - Major depressive disorder, single episode, unspecified Condition: Stable Disposition: HOME, SELF-CARE Additional Instructions: Today we treated her migraine with Toradol, Compazine and Benadryl. We also gave you Zofran for nausea. Your work-up did not reveal any cause for your fatigue. It is possible that this is being caused by your depression. It is very important that you continue to follow-up with Renate Marin as an outpatient for further medication adjustment. Please also discuss with her your migraines as the migraines may be able to be treated with the same medication that is treating your depression. Referrals: CJ SANTOYO MD [COMMUNITY BASED STAFF] - Follow up as needed I personally performed the services described in the documentation, reviewed and edited the documentation which was dictated to the scribe in my presence, and it accurately records my words and actions.
== END 2018-11-23 16:54 | disposition home or self-care (01) ==
LOC: ER 10:55
DX: G43.011 Migraine without aura, intractable, with status migrainosus (principal); R53.82 Chronic fatigue, unspecified; F32.9 Major depressive disorder, single episode, unspecified; T43.216A Underdosing of selective serotonin and norepinephrine reuptake inhibitors, initial encounter; Z91.128 Patient's intentional underdosing of medication regimen for other reason; Z91.14 Patient's other noncompliance with medication regimen; J34.89 Other specified disorders of nose and nasal sinuses; R11.10 Vomiting, unspecified; H53.149 Visual discomfort, unspecified; H53.8 Other visual disturbances; R63.5 Abnormal weight gain; R09.81 Nasal congestion; Z88.5 Allergy status to narcotic agent; F17.200 Nicotine dependence, unspecified, uncomplicated
CPT/HCPCS: 99284; 96372; 36415; 84439; 84443; 85025; 81025; 80053; 81001; 84481; J3490; J1200; J1885; S0119; J0780

== ENCOUNTER 2019-02-03 18:26 | Emergency (ER) | payer MEDICAID ==
--- NOTE | 2019-02-03 19:02 | ER Document Report ---
ED Medical Screen (RME) - General Chief Complaint: Constipation Stated Complaint: HEADACHE Time Seen by Provider: 02/03/19 18:55 Mode of Arrival: Ambulatory Information source: Patient Notes: Patient presents emergency department with feeling weak drained leg swelling for the past week. Reports history of PTSD, depression with medication change 2-1/2 weeks ago. Denies other symptoms such as fever vomiting diarrhea. Denies recent bite by tick, reports new scattered rash. Also reports she has not had a bowel movement. I have greeted and performed a rapid initial assessment of this patient. A comprehensive ED assessment and evaluation of the patient, analysis of test results and completion of the medical decision making process will be conducted by additional ED providers. Dictation of this chart was performed using voice recognition software; therefore, there may be some unintended grammatical errors. TRAVEL OUTSIDE OF THE [place] IN LAST 30 DAYS: No - Related Data Allergies/Adverse Reactions: morphine Allergy (Verified 02/03/19 18:26) Past Medical History - Social History Chew tobacco use (# tins/day): No Frequency of alcohol use: None Drug Abuse: None - Past Medical History Cardiac Medical History: Denies: Hx Hypercholesterolemia, Hx Hypertension, Hx Pulmonary Embolism, Hx Heart Murmur Pulmonary Medical History: Denies: Hx Asthma, Hx COPD Neurological Medical History: Denies: Hx Migraine, Hx Seizures Endocrine Medical History: Denies: Hx Diabetes Mellitus Type 1, Hx Diabetes Mellitus Type 2, Hx Hyperthyroidism, Hx Hypothyroidism Renal/ Medical History: Reports: Hx Ovarian Cysts. Denies: Hx Peritoneal Dialysis Malignancy Medical History: Denies: Hx Breast Cancer, Hx Cervical Cancer GI Medical History: Denies: Hx Gastroesophageal Reflux Disease, Hx Hiatal Hernia Musculoskeltal Medical History: Reports Hx Arthritis, Denies Hx Fibromyalgia, Reports Hx Musculoskeletal Trauma Skin Medical History: Denies Hx Eczema, Denies Hx Psoriasis Psychiatric Medical History: Reports: Hx Anxiety, Hx Depression - anxiety, Hx Post Traumatic Stress Disorder Past Surgical History: Reports: Hx Appendectomy, Hx Gynecologic Surgery - Uterine ablation, Hx Tubal Ligation, Other - Lymph node removed due to CAT scans fever - Immunizations Immunizations up to date: Yes Physical Exam - Vital signs Vitals: Temp Pulse Resp BP Pulse Ox 98.4 F 70 18 115/64 99 02/03/19 18:30 02/03/19 18:30 02/03/19 18:30 02/03/19 18:30 02/03/19 18:30 Course - Vital Signs Vital signs: Temp Pulse Resp BP Pulse Ox 98.4 F 70 18 115/64 99 02/03/19 18:30 02/03/19 18:30 02/03/19 18:30 02/03/19 18:30 02/03/19 18:30
--- NOTE | 2019-02-03 19:30 | RADIOLOGY REPORT (SQ) ---
EXAM DESCRIPTION: KUB/ABDOMEN (SINGLE VIEW) COMPLETED DATE/TIME: 02/03/2019 7:23 pm REASON FOR STUDY: constipation COMPARISON: None. NUMBER OF VIEWS: One view. TECHNIQUE: Supine radiographic image of the abdomen acquired. LIMITATIONS: None. FINDINGS: BOWEL GAS PATTERN: Nonspecific bowel-gas pattern. Scattered gas within large and small abhishek wel. . CALCIFICATIONS: No suspicious calcifications. SOFT TISSUES: No gross mass or suggestion of organomegaly. HARDWARE: None in the abdomen. BONES: No acute fracture. No worrisome bone lesions. OTHER: Soft tissue density in pelvis consistent with urinary bladder. IMPRESSION: Nonspecific bowel-gas pattern. . TECHNICAL DOCUMENTATION: JOB ID: [id number] [employer]- All Rights Reserved Reading location - IP/workstation name: [email or web address]
[2019-02-03 19:49] LABS: ALANINE AMINOTRANSFERASE 14 U/L (9-52); ALBUMIN 3.9 g/dL (3.5-5.0); ALKALINE PHOSPHATASE 52 U/L (38-126); ANION GAP 7 (5-19); ASPARTATE AMINO TRANSFERASE 19 U/L (14-36); BILIRUBIN,DIRECT 0.2 mg/dL (0.0-0.4); BILIRUBIN,TOTAL 0.2 mg/dL (0.2-1.3); BLOOD UREA NITROGEN 9 mg/dL (7-20); CALCIUM 9.1 mg/dL (8.4-10.2); CARBON DIOXIDE 23 mmol/L (22-30); CHLORIDE 110 mmol/L (98-107); GLUCOSE 80 mg/dL (75-110); POTASSIUM 4.6 mmol/L (3.6-5.0); SODIUM 139.9 mmol/L (137-145); TOTAL PROTEIN 6.7 g/dL (6.3-8.2)
[2019-02-03 20:10] LABS: APPEARANCE,URINE CLEAR; BILIRUBIN,URINE NEGATIVE (NEGATIVE); COLOR,URINE YELLOW; GLUCOSE, URINE NEGATIVE (NEGATIVE); KETONES,URINE NEGATIVE (NEGATIVE); LEUKOCYTE ESTERASE,URINE NEGATIVE (NEGATIVE); NITRITE,URINE NEGATIVE (NEGATIVE); PROTEIN,URINE NEGATIVE (NEGATIVE); URINE SPECIFIC GRAVITY 1.014; UROBILINOGEN,URINE NEGATIVE mg/dL (<2.0)
[2019-02-03 20:26] LABS: URINE AMPHETAMINES SCREEN NEGATIVE; URINE BARBITURATES SCREEN NEGATIVE; URINE BENZODIAZEPINES SCREEN UNCONFIRMED POSITIVE; URINE COCAINE SCREEN NEGATIVE; URINE MARIJUANA (THC) SCREEN UNCONFIRMED POSITIVE; URINE METHADONE SCREEN NEGATIVE; URINE PHENCYCLIDINE SCREEN NEGATIVE
[2019-02-03 20:32] LABS: ABSOLUTE BASOPHILS # (AUTO) 0.1 10^3/uL (0.0-0.2); ABSOLUTE EOSINOPHILS # (AUTO) 0.2 10^3/uL (0.0-0.6); ABSOLUTE LYMPHOCYTES (AUTO) 2.6 10^3/uL (0.5-4.7); ABSOLUTE MONOCYTES (AUTO) 0.7 10^3/uL (0.1-1.4); ABSOLUTE NEUT (AUTO) 6.5 10^3/uL (1.7-8.2); EOSINOPHILS % (AUTO) 2.4 % (0-6); HEMATOCRIT 38.7 % (36.0-47.0); HEMOGLOBIN 13.1 g/dL (12.0-15.5); LYMPHOCYTES % (AUTO) 25.5 % (13-45); MEAN CORPUSCULAR HEMOGLOBIN 31.9 pg (27.0-33.4); MEAN CORPUSCULAR HGB CONC 33.9 g/dL (32.0-36.0); MEAN CORPUSCULAR VOLUME 94 fl (80-97); MONOCYTES % (AUTO) 6.9 % (3-13); PLATELET COUNT 283 10^3/uL (150-450); RED BLOOD COUNT 4.11 10^6/uL (3.72-5.28); SEGMENTED NEUTROPHILS % (AUTO) 64.2 % (42-78); TOTAL CELLS COUNTED % (AUTO) 100 %; WHITE BLOOD COUNT 10.1 10^3/uL (4.0-10.5)
--- NOTE | 2019-02-03 21:33 | ER Document Report ---
ED GI/ - General Chief Complaint: Constipation Stated Complaint: HEADACHE Time Seen by Provider: 02/03/19 18:55 Primary Care Provider: AYAKA MASSEY MD [ACTIVE STAFF] - Follow up as needed Mode of Arrival: Ambulatory Information source: Patient TRAVEL OUTSIDE OF THE [place] IN LAST 30 DAYS: No - HPI Patient complains to provider of: Abdominal pain Onset: Other - Ongoing for the past 2 weeks. Timing/Duration: Gradual Quality of pain: Achy, Dull Severity at maximum: Moderate Severity in ED: Mild Pain Level: 2 Vaginal bleeding (Compared to normal period): None Associated symptoms: Nausea Exacerbated by: Denies Similar symptoms previously: Yes Recently seen / treated by doctor: No - Related Data Allergies/Adverse Reactions: morphine Allergy (Verified 02/03/19 18:26) Past Medical History - General Information source: Patient - Social History Smoking Status: Current Every Day Smoker Chew tobacco use (# tins/day): No Frequency of alcohol use: None Drug Abuse: None Family History: Reviewed & Not Pertinent Patient has suicidal ideation: No Patient has homicidal ideation: No - Past Medical History Cardiac Medical History: Denies: Hx Hypercholesterolemia, Hx Hypertension, Hx Pulmonary Embolism, Hx Heart Murmur Pulmonary Medical History: Denies: Hx Asthma, Hx COPD Neurological Medical History: Denies: Hx Migraine, Hx Seizures Endocrine Medical History: Denies: Hx Diabetes Mellitus Type 1, Hx Diabetes Mellitus Type 2, Hx Hyperthyroidism, Hx Hypothyroidism Renal/ Medical History: Reports: Hx Ovarian Cysts. Denies: Hx Peritoneal Dialysis Malignancy Medical History: Denies: Hx Breast Cancer, Hx Cervical Cancer GI Medical History: Denies: Hx Gastroesophageal Reflux Disease, Hx Hiatal Hernia Musculoskeletal Medical History: Reports Hx Arthritis, Denies Hx Fibromyalgia, Reports Hx Musculoskeletal Trauma Skin Medical History: Denies Hx Eczema, Denies Hx Psoriasis Psychiatric Medical History: Reports: Hx Anxiety, Hx Depression - anxiety, Hx Post Traumatic Stress Disorder Past Surgical History: Reports: Hx Appendectomy, Hx Gynecologic Surgery - U terine ablation, Hx Tubal Ligation, Other - Lymph node removed due to CAT scans fever - Immunizations Immunizations up to date: Yes Review of Systems - Review of Systems Constitutional: No symptoms reported EENT: No symptoms reported Cardiovascular: No symptoms reported Respiratory: No symptoms reported Gastrointestinal: Abdominal pain, Nausea, Constipation Genitourinary: No symptoms reported Female Genitourinary: No symptoms reported Musculoskeletal: No symptoms reported Skin: No symptoms reported Hematologic/Lymphatic: No symptoms reported Neurological/Psychological: No symptoms reported -: Yes All other systems reviewed and negative Physical Exam - Vital signs Vitals: Temp Pulse Resp BP Pulse Ox 98.4 F 70 18 115/64 99 02/03/19 18:30 02/03/19 18:30 02/03/19 18:30 02/03/19 18:30 02/03/19 18:30 Interpretation: Normal - General General appearance: Appears well, Alert - HEENT Head: Normocephalic, Atraumatic Eyes: Normal Pupils: PERRL - Respiratory Respiratory status: No respiratory distress Chest status: Nontender Breath sounds: Normal Chest palpation: Normal - Cardiovascular Rhythm: Regular Heart sounds: Normal auscultation Murmur: No - Abdominal Inspection: Normal Distension: No distension Bowel sounds: Normal Tenderness: Nontender Organomegaly: No organomegaly - Back Back: Normal, Nontender - Extremities General upper extremity: Normal inspection, Nontender, Normal color, Normal ROM, Normal temperature General lower extremity: Normal inspection, Nontender, Normal color, Normal ROM, Normal temperature, Normal weight bearing. No: Remberto's sign - Neurological Neuro grossly intact: Yes Cognition: Normal Orientation: AAOx4 [place] Coma Scale Eye Opening: Spontaneous [place] Coma Scale Verbal: Oriented Louis Coma Scale Motor: Obeys Commands Louis Coma Scale Total: 15 Speech: Normal Motor strength normal: LUE, RUE, LLE, RLE Sensory: Normal - Psychological Associated symptoms: Normal affect, Normal mood - Skin Skin Temperature: Warm Skin Moisture: Dry Skin Color: Normal Course - Vital Signs Vital signs: Temp Pulse Resp BP Pulse Ox 97.4 F 63 14 97/66 L 98 02/04/19 02:01 02/04/19 02:01 02/04/19 02:01 02/04/19 02:01 02/04/19 02:01 - Laboratory Result Diagrams: 02/03/19 20:10 02/03/19 19:13 Laboratory results interpreted by me: 02/03/19 19:13 Chloride 110 H - Diagnostic Test Radiology reviewed: Reports reviewed Radiology results interpreted by me: 02/04/19 01:23 CT of the abdomen and pelvis is unremarkable. Discharge - Discharge Clinical Impression: Abdominal pain Qualifiers: Abdominal location: generalized Qualified Code(s): R10.84 - Generalized abdominal pain Constipation Qualifiers: Constipation type: unspecified constipation type Qualified Code(s): K59.00 - Constipation, unspecified Condition: Stable Disposition: HOME, SELF-CARE Instructions: Abdominal Pain ([facility]), Constipation ([facility]) Additional Instructions: Please follow-up with the [facility] on Tuesday morning. Return to the emergency room if your condition worsens. Prescriptions: Acetaminophen [Tylenol] 975 mg PO Q8H PRN #25 capsule PRN Reason: Pain Scale Of 3 Bisacodyl [Dulcolax] 10 mg PO DAILY PRN #10 tablet.dr PRN Reason: constipation Docusate Sodium [Colace] 100 mg PO BID #30 capsule Metoclopramide HCl [Reglan 10 mg Tablet] 10 mg PO Q8H PRN #15 tablet PRN Reason: nausea and vomiting Na Phos,M-B/Na Phos,Di-Ba [Fleet Enema (Adult) 133 ml] 1 applic MT DAILYP PRN #1 enema PRN Reason: Referrals: AYAKA MASSEY MD [ACTIVE STAFF] - Follow up as needed
[2019-02-03] MEDS ORDERED: KETOROLAC TROMETHAMINE INJ/PF 30 MG/1 ML SDV IV ONE (21:56)
[2019-02-03] MEDS ORDERED: NORMAL SALINE 1000 ML 1,000 ML IV ONE (21:57)
--- NOTE | 2019-02-03 23:01 | RADIOLOGY REPORT (SQ) ---
EXAM DESCRIPTION: CT ABDOMEN PELVIS WITH IV CONTRAST COMPLETED DATE/TME: 02/03/2019 21:34 CLINICAL HISTORY: 38 years, Female, abdominal pain COMPARISON: Multiple priors, most recent from 04/09/2018 TECHNIQUE: Contrast enhanced CT of the abdomen/pelvis was performed. Coronal and sagittal reformations were acquired. Images stored on PACS. All CT scanners at this facility use dose modulation, iterative reconstruction, and/or weight based dosing when appropriate to reduce radiation dose to as low as reasonably achievable (ALARA). [facility]: Dose Right [facility]: CareDose [facility]: Dose Right [facility]: Teradose 4D [facility]: Geek[employer]oo LIMITATIONS: None. FINDINGS: Limited evaluation of the lower chest reveals bibasilar atelectasis. The liver, spleen, pancreas, gallbladder, and both adrenal glands show no suspicious findings. Both kidneys enhance symmetrically. There is no hydronephrosis or hydroureter. The urinary bladder is well distended and shows no suspicious finding. The uterus and both ovaries show no suspicious finding of there is a corpus luteal cyst on the left, a benign finding for which no further follow-up is necessary. A large amount of stool is noted throughout the colon. No evidence of bowel obstruction. The appendix is not well visualized; however, no pericecal inflammatory changes are appreciated. Vascular structures opacify with contrast normally. No suspicious lymphadenopathy or drainable fluid collections are appreciated. Bone windows show no destructive osseous lesions. IMPRESSION: No acute abnormality within the abdomen or pelvis. TECHNICAL DOCUMENTATION: Quality ID # [id number]: Final reports with documentation of one or more dose reduction techniques (e.g., Automated exposure control, adjustment of the mA and/or kV according to patient size, use of iterative reconstruction technique) copyright 2011 [employer]- All Rights Reserved
[2019-02-04] MEDS ORDERED: HYDROMORPHONE HCL INJ/PF 2 MG/ML AMPULE IV ONE ×2 (00:02→01:49)
[2019-02-04] MEDS ORDERED: METOCLOPRAMIDE HCL INJ/PF 10 MG/2 ML SDV IV ONE (00:03)
[2019-02-04] MEDS ORDERED: ONDANSETRON HCL INJ/PF 4 MG/2 ML SDV IV ONE (01:19)
[2019-02-04 02:06] VITALS: BP 97/66
== END 2019-02-04 02:06 | disposition home or self-care (01) ==
LOC: ER 18:26
DX: K59.00 Constipation, unspecified (principal); R51 Headache; R10.84 Generalized abdominal pain; R11.0 Nausea; F17.200 Nicotine dependence, unspecified, uncomplicated; Z88.6 Allergy status to analgesic agent; Z98.51 Tubal ligation status
CPT/HCPCS: 96376; 99284; 96361; 96374; 96375; 36415; 84443; 85025; 81025; 80053; 81001; 80307; 74018; 74177; J1885; J2765; J1170; J2405; J7030